=== PATIENT | male | born 1975 | race Caucasian/White ===

== ENCOUNTER 2019-12-16 13:31 | Emergency (ER) | payer OTHER, SELFPAY ==
[2019-12-16 13:54] VITALS: BP 136/75; PULSE 109; RESP 18; TEMP 36.6; O2SAT 99
--- NOTE | 2019-12-16 14:40 | ED.EAR ---
HPI - Ear Problem General Chief complaint: Ear Stated complaint: ear ache Time Seen by Provider: 12/16/19 14:40 Source: patient and RN notes reviewed Mode of arrival: ambulatory Limitations: no limitations History of Present Illness HPI Narrative: 44 year old male with complaints of severe left ear pain which awoke him at 0100 this morning, patient describes as constant ache rates his pain 8/10. Patient denies any known fevers, chills, or sweats, no sore throat or any cough. Patient admits to some clear nasal drainage but denies any sinus pain or headaches or acute rhinitis. Patient admits to tobacco abuse of 1ppd for the last 15 years. Lungs are clear to auscultation with no wheezing or any dyspnea voiced, SAO2 99% on room air. MD Complaint: ear pain and decreased hearing Location: left ear Duration: constant Severity: severe Relieving factors: other (some decrease with Ibuprofen) Exacerbating factors: palpation Discharge from ear: Reports no Associated symptoms ear: decreased hearing Treatment prior to arrival: other (ibuprofen) Related Data Home Medications Medication Instructions Recorded Confirmed albuterol sulfate 1 puff INHALATION QID PRN 12/16/19 12/16/19 alprazolam 0.5 mg PO HS PRN 12/16/19 12/16/19 escitalopram oxalate 20 mg PO DAILY 12/16/19 12/16/19 Allergies Allergy/AdvReac Type Severity Reaction Status Date / Time No Known Allergies Allergy Verified 12/16/19 14:14 Review of Systems Review of Systems: Narrative: CONSTITUTIONAL: Denies fever, chills, or sweats. EYES: Denies visual changes, redness, or discharge. ENT: Denies rhinorrhea, congestion, sore throat,left ear otalgia. CARDIOVASCULAR: Denies chest pain, palpitations, or edema. RESPIRATORY: Denies cough or dyspnea. GASTROINTESTINAL: Denies abdominal pain, nausea, vomiting, or diarrhea. GENITOURINARY: Denies dysuria or hematuria. SKIN: Denies rash or itching. MUSCULOSKELETAL: Denies back pain, joint pain, or myalgia. NEUROLOGIC: Denies headache, numbness, or weakness. PSYCHIATRIC: history anxiety or depression. All systems reviewed & are unremarkable except as noted in HPI and below PMFSH Past Medical History Medical History (Updated 12/21/19 @ 16:58 by Reina Leach NP) Anxiety Bronchitis CVA (cerebral vascular accident) Epilepsy Pneumonia Seizure Shoulder fracture, left Social History Social History (Updated 12/21/19 @ 16:56 by Reina Leach NP) Smoking packs per day: 1 Smoking cigarettes per day: 20.0 Years smoked: 15 Smoking pack-years: 15.00 Smoking status: Current every day smoker Tobacco type: cigarettes Living arrangements: with family Gender identity (if verbalized by the patient): Male Comments At time of signature, agree with nursing past medical, surgical, social and family history. There is no relevant family history pertinent to the presenting complaint Exam Narrative: Exam Narrative: GENERAL: Well-appearing, well-nourished, and in no acute distress. HEAD: Normocephalic, atraumatic. EYES: PERRLA and EOMI. ENT: Nares clear, clear rhinorrhea or epistaxis. Mucous membranes moist. Left TM bright red with dull light reflex painful to examine,right TM normal with good light reflex, throat pink no lesions or exudate no tonsil enlargement NECK: Supple.no lymphadenopathy CHEST: Clear to auscultation. No respiratory distress.SAO2 99% on room air HEART: Regular rate and rhythm. No murmur heard. Normal peripheral pulses. ABDOMEN: Soft, nontender, nondistended, normal active bowel sounds. EXTREMITIES: Normal range of motion. No edema. SKIN: Warm, dry, no rash. NEURO: No focal deficits. Alert and oriented x3. Course Vital Signs Vital signs: Vital Signs Temperature 36.6 C 12/16/19 13:54 Pulse Rate 109 H 12/16/19 13:54 Respiratory Rate 18 12/16/19 13:54 Blood Pressure 136/75 12/16/19 13:54 Pulse Oximetry 99 12/16/19 13:54 Temperature 36.6 C 12/16/19 13:54 Pulse Rate 109 H 0
== END 2019-12-16 14:56 | disposition home or self-care (01) ==
PROVIDERS: Emergency Provider Registered Nurse; PCP Internal Medicine Geriatric Medicine
DX: H65.02 Acute serous otitis media, left ear (principal); F17.210 Nicotine dependence, cigarettes, uncomplicated; F41.9 Anxiety disorder, unspecified; Z86.73 Personal history of transient ischemic attack (TIA), and cerebral infarction without residual deficits
CPT/HCPCS: 99213; G0463

== ENCOUNTER 2021-10-19 14:34 | Emergency (ER) | payer MEDICARE, MEDICAID, SELFPAY ==
[2021-10-19 14:42] VITALS: BP 158/99; PULSE 128; RESP 16; TEMP 36; O2SAT 96
--- NOTE | 2021-10-19 15:18 | ED.DIZZY ---
HPI - Dizziness General Chief Complaint: Dizziness Stated Complaint: Dizziness Time Seen by Provider: 10/19/21 15:10 Source: patient Mode of arrival: ambulatory Limitations: clinical condition History of Present Illness HPI Narrative: Dwight Funez is a 46 yo male with a PMH of HTN, anxiety and depression, stroke 5 years ago who comes to us care with complaints of lightheadedness. He is concerned that he is having another stroke however he is extremely anxious blood pressure is elevated he is very tachycardic when I asked him about taking his medication, he has taken his blood pressure medication but did not take any Ativan that was prescribed for anxiety. He is breathing fast and when asked about shortness fast breathing he states that he is anxious Related Data Home Medications Medication Instructions Recorded Confirmed albuterol sulfate 1 puff INHALATION QID PRN 12/16/19 10/19/21 alprazolam 0.5 mg PO HS PRN 12/16/19 10/19/21 escitalopram oxalate 20 mg PO DAILY 12/16/19 10/19/21 benazepril-hydrochlorothiazide 1 tablet PO DAILY 10/19/21 10/19/21 ergocalciferol (vitamin D2) 1,250 mcg PO DAILY 10/19/21 10/19/21 ferrous sulfate [FeroSul] 325 mg PO DAILY 10/19/21 10/19/21 quetiapine 200 mg PO DAILY 10/19/21 10/19/21 Allergies Allergy/AdvReac Type Severity Reaction Status Date / Time No Known Allergies Allergy Verified 10/19/21 14:57 Review of Systems Review of Systems: CONSTITUTIONAL: Denies fever, chills, sweats. EYES: Denies visual changes, redness, discharge. ENT: Denies rhinorrhea, congestion, sore throat, otalgia. CARDIOVASCULAR: Denies chest pain, palpitations, edema. RESPIRATORY: Denies dyspnea, wheezing, cough GASTROINTESTINAL: Denies abdominal pain, nausea, vomiting, diarrhea. GENITOURINARY: Denies dysuria, hematuria, abnormal discharge SKIN: Denies rash or itching. NEUROLOGIC: Denies numbness, or focal weakness. PSYCHIATRIC: Denies anxiety or depression. Patient complains of lightheadedness PMFSH Past Medical History Medical History Anxiety Bronchitis CVA (cerebral vascular accident) Epilepsy Pneumonia Seizure Shoulder fracture, left Social History Social History Smoking packs per day: 1 Smoking cigarettes per day: 20.0 Years smoked: 15 Smoking pack-years: 15.00 Smoking status: Current every day smoker Tobacco type: cigarettes Gender identity (if verbalized by the patient): Male Comments At time of signature, I agree with nursing past medical, surgical, social and family history. There is no relevant family history pertinent to the presenting complaint. Exam Narrative: GENERAL: This is a well-nourished, well-developed patient, is anxiousand in mild distress distress. HEAD: normocephalic, atraumatic. EYES: . PE RR L Sclera clear/white. Vision is grossly intact. EARS: External ears normal, auditory canals clear and without drainage, TMs normal without perforation. Hearing grossly intact. NOSE: External nose normal without nasal discharge, nares without redness, no rhinorrhea. THROAT: Mucous membranes moist, NECK: Neck supple, non-tender CARDIOVASCULAR: Tachycardic rate and rhythm without murmurs, gallops, or rubs. RESPIRATORY: Clear to auscultation. Rapid respiratory rate without distress, breath sounds equal bilaterally. No wheezes, rales, or rhonchi. GASTROINTESTINAL: Abdomen soft, non-tender, SKIN: warm, intact with no suspicious lesions or rash, good texture and turgor. NEURO: awake, alert, and oriented to person, place and time. There were no obvious focal neurologic abnormalities. Steady gait EXTREMITIES: Normal range of motion. Cranial nerves grossly intact able to do finger opposition and move all extremities with equal strength 5/5, no alteration in gait BACK: Nontender without deformity Course Course Emergency Course: Patient here for complaints of lightheade
[2021-10-19] MEDS: MECLIZINE HCL 25 MG TABLET PO (15:22)
[2021-10-19 15:31] LABS: Glucose Point of Care 151 mg/dl (65-105)
== END 2021-10-19 16:19 | disposition home or self-care (01) ==
PROVIDERS: Emergency Provider Nurse Practitioner
DX: H81.10 Benign paroxysmal vertigo, unspecified ear (principal); I10 Essential (primary) hypertension; F41.9 Anxiety disorder, unspecified; F32.A Depression, unspecified; Z86.73 Personal history of transient ischemic attack (TIA), and cerebral infarction without residual deficits
CPT/HCPCS: 82948; 99213; A9270; G0463

== ENCOUNTER 2024-04-01 16:38 | Emergency (ER) | payer MEDICARE, MEDICAID, SELFPAY ==
--- NOTE | ~2024-04-01 | CT_ITS ---
EXAMINATION: CT cervical spine wo con DATE: 04/01/2024 17:03 INDICATION: Head injury. Neck pain. TECHNIQUE: Computed tomography (CT) of the cervical spine was performed without intravenous contrast. Automated exposure control and iterative reconstruction technique were employed. The dose-length pro duct was 500.01 mGy-cm. COMPARISON: None FINDINGS: There is 14 degrees dextroscoliosis of cervical spine. Vertebral body heights are normal. T here is mildly decreased disc height at C4-C5. The following disc levels are specifically discussed: C2-C3: There is mild bilateral uncovertebral joint osteoarthritis. There is mild bilateral facet join t osteoarthritis. There is no neural foraminal stenosis. There is no central canal stenosis. C3-C4: There is moderate right and mild left uncovertebral joint osteoarthritis. There is no facet prakash int osteoarthritis. There is mild right neural foraminal stenosis. There is mild central canal stenos is. C4-C5: There is mild bilateral uncovertebral joint osteoarthritis. There is no facet joint osteoarthr itis. There is mild left neural foraminal stenosis. There is mild central canal stenosis. C5-C6: There is no uncovertebral joint osteoarthritis. There is no facet joint osteoarthritis. There is no neural foraminal stenosis. There is no central canal stenosis. C6-C7: There is no uncovertebral joint osteoarthritis. There is no facet joint osteoarthritis. There is no neural foraminal stenosis. There is no central canal stenosis. C7-T1: There is no uncovertebral joint osteoarthritis. There is mild bilateral facet joint osteoarthr itis. There is no neural foraminal stenosis. There is no central canal stenosis. IMPRESSION: 1. No fracture. 2. Mild cervical spondylosis. 3. Cervical dextroscoliosis. Reviewed, dictated and finalized at location E.
--- NOTE | ~2024-04-01 | CT_ITS ---
EXAMINATION: CT brain wo con DATE: 04/01/2024 17:03 INDICATION: Head injury. TECHNIQUE: Computed tomography (CT) of the head was performed without intravenous contrast. The mA wa s adjusted according to patient size. Iterative reconstruction technique was employed. The dose-lengt h product was 605.33 mGy-cm. COMPARISON: Head CT 04/25/2018, brain MRI 07/04/2018. FINDINGS: There is an old infarct in the right thalamus. There is no intracranial hemorrhage, acute i nfarction, or abnormal intracranial mass lesion. The ventricles are normal in size. The orbits are no rmal. There is mucosal thickening in the paranasal sinuses. The mastoid air cells are normal. IMPRESSION: 1. Old infarct in the right thalamus. Reviewed, dictated and finalized at location E.
[2024-04-01 16:45] VITALS: BP 114/87; PULSE 86; RESP 16; TEMP 36.4; O2SAT 97
--- NOTE | 2024-04-01 16:52 | ED.FALL ---
HPI - Fall General Chief Complaint: Fall Stated Complaint: glf, neck pain Time Seen by Provider: 04/01/24 16:40 History of Present Illness HPI Narrative: Pt slipped in shower and fell at local assisted living. Pt complains of slight SILVA and pain in back of neck. Pt requests oral pain medicine. Pt denies LOC or numbness or weakness in arms. Related Data Home Medications Medication Instructions Recorded Confirmed albuterol sulfate 90 mcg/actuation 1 puff inhalation QID PRN Dyspnea 12/16/19 10/19/21 aerosol inhaler alprazolam 0.5 mg tablet 0.5 mg PO HS PRN Anxiety 12/16/19 10/19/21 escitalopram oxalate 20 mg tablet 20 mg PO DAILY 12/16/19 10/19/21 benazepril 10 1 tablet PO DAILY 10/19/21 10/19/21 mg-hydrochlorothiazide 12.5 mg tablet ergocalciferol (vitamin D2) 1,250 1,250 mcg PO DAILY 10/19/21 10/19/21 mcg (50,000 unit) capsule ferrous sulfate 325 mg (65 mg 325 mg PO DAILY 10/19/21 10/19/21 iron) tablet (FeroSul) quetiapine 200 mg tablet 200 mg PO DAILY 10/19/21 10/19/21 Allergies Allergy/AdvReac Type Severity Reaction Status Date / Time No Known Allergies Allergy Verified 10/19/21 14:57 Review of Systems Review of Systems: All systems reviewed & are unremarkable except as noted in HPI and below PMFSH Past Medical History Medical History Anxiety Bronchitis CVA (cerebral vascular accident) Epilepsy Pneumonia Seizure Shoulder fracture, left Social History Social History Smoking packs per day: 1 Smoking cigarettes per day: 20.0 Years smoked: 15 Smoking pack-years: 15.00 Smoking status: Current every day smoker Tobacco type: cigarettes Living arrangements: with family Gender identity (if verbalized by the patient): Male Exam Const: General: no acute distress Nutritional Appearance: well nourished Orientation/consciousness: patient oriented x3 Limitations: no limitations Eyes: Conjunctivae: conjunctivae normal Pupils: Equal, round and reactive pupils present EOM: EOMs intact bilaterally Neck: Neck: normal visual inspection Resp: Effort & Inspection: normal respiratory effort Auscultation: clear to auscultation bilaterally Cardio: Rate: regular rate Rhythm: regular rhythm GI: Auscultation: normal bowel sounds Skin: General skin exam: normal color Rashes: no rashes Wounds: no wounds Neuro: General: patient oriented x3, moves all extremities, no focal motor deficits and CN's II-XI intact bilaterally Cranial nerves: Yes Nystagmus not present Speech: normal speech Extrem: General: normal to inspection and no clubbing, cyanosis or edema Psych: Mental Status: mental status grossly normal Affect: normal affect Attitude: cooperative Course Vital Signs Vital signs: Vital Signs Temperature 97.6 F 04/01/24 16:45 Pulse Rate 86 04/01/24 16:45 Respiratory Rate 16 04/01/24 16:45 Blood Pressure 114/87 04/01/24 16:45 Pulse Oximetry 97 04/01/24 16:45 Oxygen Delivery Room Air 04/01/24 16:45 Temperature 97.6 F 04/01/24 16:45 Pulse Rate 86 04/01/24 16:45 Respiratory Rate 16 04/01/24 16:45 Blood Pressure 114/87 04/01/24 16:45 Pulse Oximetry 97 04/01/24 16:45 Oxygen Delivery Room Air 04/01/24 16:45 MDM - Fall MDM Narrative Medical decision making narrative: Pt slipped in shower and fell. pt has mild SILVA and neck pain. will Ct brain and c spine and give pain meds. No neuro findings on exam. ct brain and c spine no acute fx or injury Discharge Plan Discharge Clinical Impression: Cervical muscle strain Patient Disposition: Home, Self-Care Condition: Stable Instructions: Antibiotic Form, Cervical Strain (DC) Prescriptions: New naproxen [Naprosyn] 500 mg tablet 500 mg PO BID Qty: 20 0RF cyclobenzaprine 10 mg tablet 10 mg PO TID Qty: 14 0RF No Action alprazolam 0.5 mg Tablet
[2024-04-01] MEDS: HYDROcodone/acetaminophen (*CRX) 5-325 MG TABLET 1 TAB PO (17:18)
== END 2024-04-01 19:21 ==
PROVIDERS: Emergency Provider Emergency Medicine; PCP Emergency Medicine
DX: S16.1XXA Strain of muscle, fascia and tendon at neck level, initial encounter (principal); G40.909 Epilepsy, unspecified, not intractable, without status epilepticus; F41.9 Anxiety disorder, unspecified; F17.210 Nicotine dependence, cigarettes, uncomplicated; Z86.73 Personal history of transient ischemic attack (TIA), and cerebral infarction without residual deficits; Z87.01 Personal history of pneumonia (recurrent); Z79.899 Other long term (current) drug therapy; W18.2XXA Fall in (into) shower or empty bathtub, initial encounter
CPT/HCPCS: 70450; 72125; 99284; A9270

== ENCOUNTER 2024-07-05 08:49 | Outpatient (CLI) | payer MEDICARE, MEDICAID, SELFPAY ==
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
== END 2024-07-05 08:50 | disposition home or self-care (01) ==
PROVIDERS: Visit Provider Psychiatry & Neurology Neurology
DX: R56.9 Unspecified convulsions (principal)
CPT/HCPCS: 95816

== ENCOUNTER 2024-07-18 07:43 | Outpatient (CLI) | payer MEDICARE, MEDICAID, SELFPAY ==
--- NOTE | ~2024-07-18 | MR_ITS ---
EXAMINATION: MR brain/brain stem wo con DATE: 07/18/2024 09:06 INDICATION: Epilepsy, unspecified, not intractable. TECHNIQUE: Magnetic resonance imaging (MRI) of the brain and brainstem was performed without intraven ous contrast. COMPARISON: Brain MRI 07/04/2018, 04/25/18, head CT 04/01/2024 FINDINGS: The hippocampi are normal and symmetric. There is a small old infarct in the left posterior ghassan. There is increased T2-weighted signal intensity in the medulla and left cerebellar white matte r. There is a small old infarct in right thalamus. There are scattered areas of nonspecific increased T2-weighted signal intensity in the cerebral white matter. There is no acute ischemic infarct or int racranial hemorrhage or abnormal mass lesion. The ventricles are normal in size. The orbits are charis l. The paranasal sinuses are clear. The mastoid air cells are normal. IMPRESSION: 1. Old infarcts involving the right thalamus and left posterior ghassan. 2. Mild nonspecific cerebral and cerebellar white matter disease and disease of the medulla, which joaquín byers represents chronic small vessel ischemic disease. Reviewed, dictated and finalized at location A. IMPRESSION: 1. Old infarcts involving the right thalamus and left posterior ghassan. 2. Mild nonspecific cerebral and cerebellar white matter disease and disease of the medulla, which likely represents chronic small vessel ischemic disease.
== END 2024-07-18 07:44 | disposition home or self-care (01) ==
PROVIDERS: Visit Provider Psychiatry & Neurology Neurology
DX: G40.909 Epilepsy, unspecified, not intractable, without status epilepticus (principal); Z87.828 Personal history of other (healed) physical injury and trauma; R90.82 White matter disease, unspecified
CPT/HCPCS: 70551

== ENCOUNTER 2024-10-01 11:06 | Emergency (ER) | payer MEDICARE, MEDICAID, SELFPAY ==
[2024-10-01] VITALS (15 sets, daily range): BP systolic 118–161; BP diastolic 74–100; PULSE 74–100; RESP 13–20; TEMP 36.3–36.6; O2SAT 97–100
--- NOTE | ~2024-10-01 | CT_ITS ---
EXAMINATION: CTA abd aorta runoff DATE: 10/01/2024 17:30 INDICATION: Peripheral arterial disease. TECHNIQUE: Computed tomographic angiography (CTA) of the abdominal, pelvis, and both lower extremitie s was performed with 150 mL Omnipaque-350 intravenous contrast. Automated exposure control and iterat sophie reconstruction technique were employed. The dose-length product was 1999.60 mGy-cm. Maximum inten sity projection 3D-reconstructions of the arteries were created by the technologist on a separate wor kstation. COMPARISON: CT abdomen and pelvis 08/05/2018 FINDINGS: ABDOMINAL AORTA AND ITS BRANCHES: There is no significant stenosis of abdominal aorta, celiac axis, superior mesenteric artery, the soco al arteries, or inferior mesenteric artery. PELVIC VASCULATURE: There is no significant stenosis of the common iliac arteries, internal iliac arteries, or external i liac arteries. RIGHT LOWER EXTREMITY VASCULATURE: There is moderate stenosis of right common femoral artery. There is no significant stenosis of the pr ofunda femoral artery or superficial femoral artery. There is severe stenosis of the above-knee popli teal artery. There is no significant stenosis of the tibioperoneal trunk, or anterior or posterior ti bial arteries. Peroneal artery is small. LEFT LOWER EXTREMITY VASCULATURE: There is no significant stenosis of common femoral artery, profunda femoral artery, or superficial fe moral artery. There is severe stenosis of the above-knee popliteal artery. There is no significant st enosis of the tibioperoneal trunk, peroneal artery, or anterior or posterior tibial arteries. ADDITIONAL FINDINGS: The visualized portions of the lung bases are clear without pneumonia or pleural effusion. The heart size is normal. No pericardial effusion. The liver, gallbladder, spleen, pancreas, and adrenal glands are normal. There is cortical thinning of the kidneys. There is a 15 mm cyst in right kidney. There are no dilated loops of bowel. The appendix is normal. There are no pathologically enlarged lymph nod es. There is no free intraperitoneal fluid. There is an 8 mm radiopaque foreign body in the left foot . IMPRESSION: 1. Moderate stenosis of right common femoral artery. 2. Severe stenosis of right above-knee popliteal artery. 3. 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 Reviewed, dictated and finalized at location A. WASHER
--- NOTE | ~2024-10-01 | XR_ITS ---
EXAMINATION: XR tibia fibula LT 2V DATE: 10/01/2024 14:52 INDICATION: Left lower leg wounds. TECHNIQUE: 2 views of the left tibia and fibula on 4 radiographs were obtained. COMPARISON: Left knee radiograph 04/21/2014 FINDINGS: Alignment is normal. No fracture. There is mild left knee osteoarthritis. No knee joint eff usion. IMPRESSION: 1. Mild left knee osteoarthritis. Reviewed, dictated and finalized at location A. HARDENER
--- NOTE | ~2024-10-01 | US_ITS ---
ULTRASOUND ANKLE BRACHIAL INDEX Ordering provider: Nettie Chaudhry MD History: . requested by facility . Comparison: None. FINDINGS: Right brachial systolic blood pressure: 150 mmHg Left brachial systolic blood pressure: 1:15 9 mmHg Right ankle systolic blood pressure: 114 mmHg Left ankle systolic blood pressure: Not visualized. Right ankle/arm index (LUZ): 0.76 Left ankle/arm index (LUZ): NA Note regarding LUZ: --Normal= 1.0 or slightly greater. --Claudication (moderate stenosis or occlusive state)= 0.6 to 0.9. --Rest pain (severe occlusive states)= 0.5 or less. IMPRESSION: Moderate stenosis in the right side. Highly suggestive Severe stenosis on the left side. Reviewed, dictated and finalized at location A. OUND SPECIALIST
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
[2024-10-01] MEDS: HYDROcodone/acetaminophen (*CRX) 5-325 MG TABLET 1 TAB PO (14:54)
[2024-10-01 15:17] LABS: Basophils Percent Auto 0.5 % (0.2-1.2); Eosinophils Absolute Auto 0.9 K/mm3 (0-0.3); Eosinophils Percent Auto 11.1 % (0-4.4); Hematocrit 34.7 % (42.0-52.0); Hemoglobin 11.2 g/dL (14.0-18.0); Immature Granulocyte Absolute 0.07 K/mm3 (0.00-0.031); Immature Granulocyte Percent A 0.9 % (0-0.5); Lymphocytes Absolute Auto 1.69 K/mm3 (0.9-3.2); Lymphocytes Percent Auto 22.1 % (18.3-44.2); Mean Corpuscular HGB Conc 32.3 g/dl (32-36); Mean Corpuscular Hemoglobin 28.1 pg (26-34); Mean Platelet Volume 9.6 fl (7.4-10.4); Monocytes Absolute Auto 0.8 K/mm3 (0.1-0.6); Neutrophils Absolute Auto 4.2 K/mm3 (1.3-6.7); Neutrophils Percent Auto 54.4 % (45.5-73.1); Platelet Count Result 227 k/mm3 (150-375); Red Blood Count 3.99 M/mm3 (4.6-6.20); Red Cell Distribution Width 16.7 % (11.5-14.5); White Blood Count 7.6 K/mm3 (4.5-10.0)
[2024-10-01 15:26] LABS: INR 1.2; Prothrombin Time 15.4 Seconds (11.1-14.7)
[2024-10-01 15:27] LABS: Partial Thromboplastin Time 37.5 Seconds (22.3-36.8)
[2024-10-01 15:31] LABS: Alanine Aminotransferase 13 U/L (6-50); Albumin Level 3.8 g/dL (3.5-5.1); Alkaline Phosphatase 72 U/L (38-126); Anion Gap 6 mmol/L (4-12); Aspartate Amino Transferase 27 U/L (17-59); Bilirubin,Total 0.6 mg/dL (0.2-1.3); Blood Urea Nitrogen 36 mg/dL (9-20); CRP 1.8 mg/dL (<1.0); Calcium 8.6 mg/dL (8.4-10.2); Carbon Dioxide 26 mmol/L (22-30); Chloride 110 mmol/L (98-107); Estimated CRCL calculation 34 ml/min; Estimated Glomerular Filt Rate 31; Glucose 99 mg/dL (65-110); Potassium 5.4 mmol/L (3.4-5.0); Sodium 142 mmol/L (137-145)
--- NOTE | 2024-10-01 16:16 | ECG_ITS ---
Test Date: 2024-10-01 16:50:50 Measurements Intervals [place] Rate: 72 P: -19 [place]: 133 QRS: 143 QRSD: 106 T: 150 QT: 418 QTc: 460 Interpretive Statements SINUS RHYTHM POSSIBLE RIGHT VENTRICULAR HYPERTROPHY [SOME/ALL OF: PROMINENT R IN V1, LATE TRANSITION, RAD, PHAM, SSS] No previous ECG available for comparison Electronically Signed On 10-02-2024 15:03:37 PRESS CLEANER by Maryanne Heck M.D.
[2024-10-01 16:44] LABS: Lactic Acid Reflex 0.9 mmol/L (0.7-2.0)
[2024-10-01] MEDS: CALCIUM GLUCONATE 1,000 MG/10 ML VIAL 1000 MG IV PUSH (17:05)
[2024-10-01] MEDS: SODIUM CHLORIDE 0.9% IV 1,000 ML 999 ML IV CONT ×2 (17:05→21:02)
[2024-10-01] MEDS: ALBUTEROL SULFATE NEB 2.5 MG/3 ML INH 10 MG INHALATION (18:25)
[2024-10-01 18:41] LABS: Erythrocyte Sedimentation Rate 104 mm/hr (0-20)
[2024-10-01] MEDS: SODIUM POLYSTYRENE SULFONONATE 15 GM/60 ML BTL 30 GM PO (18:48)
[2024-10-01] MEDS: DEXTROSE 50% 25 GM/50 ML SYRINGE IV PUSH (18:48)
[2024-10-01] MEDS: INSULIN HUMAN REGULAR (*BKC) 100 UNITS/ML 10 UNITS IV PUSH (18:49)
[2024-10-01] MEDS: SULFAMETHOXAZOLE/TRIMETHOPRIM 800/160 MG DS TABLET 1 TAB PO (20:24)
--- NOTE | 2024-10-02 00:23 | PC.NURSE ---
pt depend changed x 2 - liquid brown stool
--- NOTE | 2024-10-02 00:57 | PC.NURSE ---
lora delvalle at [facility] - room 316 given report.
[2024-10-02 04:07] VITALS: BP 137/76; PULSE 84; RESP 16; O2SAT 98
[2024-10-02] MEDS: hydroCHLOROthiazide 12.5 MG CAPSULE PO (04:35)
[2024-10-02] MEDS: lisinopriL 10 MG TABLET PO (04:35)
--- NOTE | 2024-10-02 04:37 | PC.NURSE ---
pt medicated with a dose of home medication. ems will now take him. ok per edp antonio to go once medicated.
== END 2024-10-02 04:45 ==
PROVIDERS: Emergency Medicine; Emergency Provider Student in an Organized Health Care Education/Training Program; PCP Internal Medicine Geriatric Medicine
DX: L03.116 Cellulitis of left lower limb (principal); S81.802A Unspecified open wound, left lower leg, initial encounter; S81.801A Unspecified open wound, right lower leg, initial encounter; I70.203 Unspecified atherosclerosis of native arteries of extremities, bilateral legs; N28.9 Disorder of kidney and ureter, unspecified; D64.9 Anemia, unspecified; E87.5 Hyperkalemia; R70.0 Elevated erythrocyte sedimentation rate; R79.82 Elevated C-reactive protein (CRP); M17.12 Unilateral primary osteoarthritis, left knee; M79.605 Pain in left leg; F03.90 Unspecified dementia, unspecified severity, without behavioral disturbance, psychotic disturbance, mood disturbance, and anxiety; G40.909 Epilepsy, unspecified, not intractable, without status epilepticus; E53.9 Vitamin B deficiency, unspecified; N40.0 Benign prostatic hyperplasia without lower urinary tract symptoms; E55.9 Vitamin D deficiency, unspecified; F41.9 Anxiety disorder, unspecified; F31.9 Bipolar disorder, unspecified; F17.210 Nicotine dependence, cigarettes, uncomplicated; Z66 Do not resuscitate; Z87.01 Personal history of pneumonia (recurrent); Z86.73 Personal history of transient ischemic attack (TIA), and cerebral infarction without residual deficits; Z79.899 Other long term (current) drug therapy; R94.31 Abnormal electrocardiogram [ECG] [EKG]; V28.99XA Unspecified rider of other motorcycle injured in noncollision transport accident in traffic accident, initial encounter
CPT/HCPCS: 36415; 73590; 75635; 80053; 83605; 85025; 85610; 85652; 85730; 86140; 87040; 87070; 87075; 87077; 87147; 87181; 87186; 87205; 93005; 93922; 94640; 96361; 96374; 96375; 99284; A9270; J0612; J1815; J7030; Q9967

== ENCOUNTER 2024-11-30 14:15 | Inpatient (IN) | payer MEDICARE, MEDICAID, SELFPAY ==
[2024-11-30] VITALS (7 sets, daily range): BP systolic 124–154; BP diastolic 94–99; PULSE 77–94; RESP 11–818; TEMP 36.4–36.7; O2SAT 99–100
--- NOTE | ~2024-11-30 | CT_ITS ---
EXAMINATION: CTA [facility] DATE: 11/30/2024 23:02 INDICATION: Arterial occlusive disease. TECHNIQUE: Computed tomographic angiography (CTA) of the left lower extremity was performed with 100 mL Omnipaque-350 intravenous contrast. Automated exposure control and iterative reconstruction techni que were employed. The dose-length product was 364.31 mGy-cm. Maximum intensity projection 3D-reconst ructions of the arteries were created by the technologist on a separate workstation. COMPARISON: CTA 10/01/2024 FINDINGS: There is no significant stenosis of the included portion of left superficial femoral artery. There is severe stenosis of the above-knee popliteal artery. There is no significant stenosis of the tibioper torres trunk, anterior tibial artery, posterior tibial artery, or the peroneal artery. Again seen is a n 8 mm radiopaque foreign body in the musculature of the foot. IMPRESSION: 1. 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 Reviewed, dictated and finalized at location A. ENT ANALYST
--- NOTE | ~2024-11-30 | XR_ITS ---
HISTORY: fall onto left knee COMPARISON: None TECHNIQUE: 2 views of the left knee were performed FINDINGS: No acute or subacute fracture, erosion, lytic or sclerotic lesion. Trace medial tibiofemoral joint space narrowing is identified. No suprapatellar joint effusion is identified. The infrapatellar joint space is clear. IMPRESSION: Degenerative disease, without acute fracture or dislocation. Reviewed, dictated and finalized at location A. IAC CATH TECHNICIAN
--- NOTE | ~2024-11-30 | XR_ITS ---
EXAMINATION: XR tibia fibula LT 2V DATE: 11/30/2024 16:48 INDICATION: Left lower leg wound. TECHNIQUE: 2 views of left tibia and fibula on 4 radiographs were obtained. COMPARISON: Left tibia and fibula radiographs 10/01/2024 FINDINGS: Alignment is normal. No fracture. There is mild left knee osteoarthritis. No knee joint eff usion. IMPRESSION: 1. No evidence of osteomyelitis. Reviewed, dictated and finalized at location A. CENTER CONSULTANT
--- OUTSIDE RECORDS SUMMARY | 2024-11-30 14:19 | XMS_ITS | Continuity of Care Document ---
Author Organization [facility] Address [address] [place] [address] Phone Care Team Providers Care Strategic Development Manager Name Role Phone Christina Resendiz Unavailable Unavailable Advance Directives Directive Yes / No Effective Date File Name No Information Encounters Encounter Description Practice Location Reason(s) For Visit Diagnoses Date Provider Providers Copied on Encounter [facility], [address], [place], [place], [id number], [place] tel:[phone] [facility] No Information 3[facility] Astrid Vasquez. [address] [facility] , [address], [place], [address], [place]. tel:[phone] Family History Family Member Type Diagnosis Age At Onset No Information Payers Payer name Insurance type Covered libertarian ID Authoriza tiskylar(s) [employer] SOI CI [id number] Social History Type Description Quantity Date Captured Comments Sex Male Smoking Status No Information Chief Complaint And Reason For Visit No Information Reason For Referral Reason For Referral No Information History Of Present Illness Encounter Date Complaint History Of Prese nt Illness No Information Functional Status Date Functional Assessmen t No Information Instructions Date Instruction Additional Infor mation No Information Assessments Type Assessment Date No Information Patient Care Teams Name Effective Dates (start - stop) Status Members No Information
--- OUTSIDE RECORDS SUMMARY | 2024-11-30 14:19 | XMS_ITS | Clinical Summary ---
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 advanced to the the terminal ileum, with identification of theappendiceal orifice and IC valve. The colonoscopy was performed without difficulty. The patient tolerated the procedure well. The quality of the bowelpreparation was fair and inadequate. The bowel preparation used was SUPREP via split dose instruction. Findings: The perianal and digital rectal examinations were normal. A 6 mm polyp was found in the cecum. The polyp was sessile. The polyp was removed with a jumbo cold forceps. Resection and retrieval were complete. Verification of patient identification for the specimen was done by the nurse. Estimated blood loss was minimal. A scattered area of mildly erythematous mucosa was found in thesigmoid colon. Biopsies were taken with a cold forceps for histology. Verification of patient identification for the specimen was done bythe nurse. Estimated blood loss was minimal. The terminal ileum appeared normal. Impression: - Preparation of the colon was fair. - Preparation of the colon was inadequate. - One 6 mm polyp in the cecum, removed with a jumbo cold forceps. Resected and retrieved. - Erythematous mucosa in the sigmoid colon.Biopsied. - The examined portion of the ileum was normal. Recommendation: - Discharge patient to home (ambulatory). - Resume previous diet. - Continue present medications. - Await pathology results. - Repeat colonoscopy for surveillance based on pathology results in 2 yrs. Procedure Code(s): --- Professional --- 65400, Colonoscopy, flexible; with biopsy, singleor multiple Diagnosis Code(s): --- Professional --- K63.5, Polyp of colon K63.89, Other specified diseases of intestine D50.9, Iron deficiency anemia, unspecified CPT copyright 2019 [employer]. All rights reserved. The codes documented in this report are preliminary and upon learning disabilities specialist reviewmay be revised to meet current compliance requirements. Electronically signed by Desmond Christensen MD Amparo Logan M.D. 03/10/2021 10:12:39 AM This report has been electronically signed by the physician. Number of Addenda: 0 Note Initiated On: 03/10/2021 9:39 AM Amparo Logan MD ENDOSCOPY PROCEDURES Final Re sult from Last 3 Months or Most Recently Relevant to Health Maintenance Insurance [facility] HEALTH MEDICARE MEDICARE SOLUTIONS [facility] MEDICARE Advance Directives For more information, please contact: [phone] Documents on File Type Date Recorded Patient Surveillance Operator Expl anation ADVANCE DIRECTIVE 03/16/2023 10:27 AM ID O F HEALTHCARE SURROGATE ADVANCE DIRECTIVE 02/21/2023 9:50 AM DNR * Full Code (Latest Code Status on File) Date Activated Date Inactivated Comments 04/11/2023 7:30 PM 04/25/2023 3:51 PM * LIMITED - No CPR Date Activated Date Inactivated Comments 03/14/2023 8:31 AM 03/15/2023 7:32 PM Question Answer Comments Provide aggressive medical m anagement before a full cardiopulmonary arrest occurs. Use antibiotics, IV Fluids, and medical treatment unless specifically selected below: No intubationNo cardioversion * Full Code Date Activated Date Inactivated Comments 01/31/2023 5:11 PM 03/14/2023 8:31 AM * Full Code Date Activated Date Inactivated Comments 08/24/2022 3:47 AM 08/24/2022 5:16 PM * Full Code Date Activated Date Inactivated Comments 11/28/2021 10:23 PM 11/30/2021 9:40 PM Care Teams Tax Record Clerk Relationship Specialty [place] [id number] [address] [facility] [place] [address] PCP - General 07/11/20 [place] [address] [address] [facility] [place] [address] Consulting Physician Cardiology 11/30/21
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
--- NOTE | 2024-11-30 16:20 | ED.WOUNDLAC ---
HPI - Wound/Laceration General Chief Complaint: Wound/Laceration <Alivia Barrera PA-C - Last Filed: 12/01/24 15:23> Stated Complaint: wound LLE <Alivia Barrera PA-C - Last Filed: 12/01/24 15:23> Time Seen by Provider: 11/30/24 16:20 <Alivia Barrera PA-C - Last Filed: 12/01/24 15:23> Focused HPI: This is a 49 year old male that presents to the ER for a wound to the left lower leg. Ongoing over the last 2 weeks. He was sent from the facility as the wound is worsening. Reports redness, swelling, abnormal drainage. GENERAL: Well-appearing, well-nourished, and in no acute distress. HEAD: Normocephalic, atraumatic. CHEST: Clear to auscultation. ?No respiratory distress. HEART: Regular rate and rhythm.? NEURO: ?Alert and oriented x3. Patient screened in triage and initial orders placed.? ?Additional care and disposition to be based upon?diagnostic testing and treatment. <Alivia Barrera PA-C - Last Filed: 12/01/24 15:23> History of Present Illness HPI narrative: 41-year-old male with history of cerebrovascular disease, seizure disorder, cognitive impairment presents to the emergency department via EMS from [facility] for lower extremity wounds. Patient has chronic wounds to his left lower extremity but was sent here due to worsening wounds. He is unable to provide much history secondary to cognitive impairment. I did discuss patient's case with [facility] staff he states they noticed that there was increased redness and green drainage from the wounds. States he is following with vascular surgery at [facility], per chart vascular surgeon is Dr. Laura. Per halfway staff the patient was supposedly going have an upcoming procedure to increase blood flow to his lower extremity due to known severe stenosis. No known fever. Patient was seen in the ED on 10/01/2024 for the same presentation. He was started on Keflex and Bactrim. ABIs and CTA of the extremity obtained at that time which showed severe stenosis. <CANDIDA Severino Last Filed: 12/01/24 01:14> Related Data Home Medications: Home Medications ?Medication ?Instructions ?Recorded ?Confirmed ?Last Taken ?Type albuterol sulfate 90 mcg/actuation 1 puff inhalation QID PRN Dyspnea 12/16/19 12/01/24 Unknown History aerosol inhaler alprazolam 0.5 mg tablet 0.25 mg PO BID PRN Anxiety 12/16/19 12/01/24 Unknown History ascorbic acid (vitamin C) 500 mg 500 mg PO DAILY 12/01/24 12/01/24 Unknown History tablet (Vitamin C) aspirin 81 mg chewable tablet 1 tablet PO DAILY 12/01/24 12/01/24 Unknown History atorvastatin 40 mg tablet (Lipitor) 40 mg PO HS 12/01/24 12/01/24 Unknown History buspirone 10 mg tablet 10 mg PO TID 12/01/24 12/01/24 Unknown History cholecalciferol (vitamin D3) 50 50 mcg PO DAILY 12/01/24 12/01/24 Unknown History mcg (2,000 unit) capsule cyanocobalamin (vitamin B-12) 500 500 mcg PO DAILY 12/01/24 12/01/24 Unknown History mcg tablet (B-12 DOTS) divalproex 500 mg tablet,delayed 500 mg PO DAILY 12/01/24 12/01/24 Unknown History release (Depakote) famotidine 20 mg tablet 20 mg PO DAILY 12/01/24 12/01/24 Unknown History fluoxetine 20 mg capsule 60 mg PO DAILY 12/01/24 12/01/24 Unknown History gabapentin 100 mg capsule 100 mg PO TID 12/01/24 12/01/24 Unknown History levetiracetam 1,000 mg tablet 1,000 mg PO BID 12/01/24 12/01/24 Unknown History (Keppra) lisinopril 5 mg tablet 5 mg PO DAILY 12/01/24 12/01/24 Unknown History lorazepam 0.5 mg tablet 0.5 mg sublingual DAILY PRN anxiety 12/01/24 12/01/24 Unknown History metoprolol tartrate 50 mg tablet 50 mg PO BID 12/01/24 12/01/24 Unknown History (Lopressor) quetiapine 100 mg tablet 125 mg PO TID 12/01/24 12/01/24 Unknown History sennosides 8.6 mg-docusate sodium 1 tab-cap PO DAILY 12/01/24 12/01/24 Unknown History 50 mg tablet (2-in-1 Laxative) tamsulosin 0.4 mg capsule (Flomax) 0.4 mg PO HS 12/01/24 12/01/24 Unknown History tramadol 50 mg tablet 50 mg PO BID PRN pain 12/01/24 12/01/24 Unknown History trazodone 50 mg tablet 50 mg PO HS 12/01/24 12/01/24 Unknown History venlafaxine 150 mg 150 mg PO DAILY 12/01/24 12/01/24 Unknown History capsule,extended release 24 hr <Alivia Barrera PA-C - Last Filed: 12/01/24 15:23> Allergies/Adverse Reactions: Allergies Allergy/AdvReac Type Severity Reaction Status Date / Time ziprasidone (From [facility]) Allergy Hives Verified 10/01/24 21:04 <Alivia Barrera PA-C - Last Filed: 12/01/24 15:23> Review of Systems Review of Systems: All systems reviewed & are unremarkable except as noted in HPI and below <Nina Cervantes PA-C - Last Filed: 12/01/24 01:14> [facility] Past Medical History Medical History: Medical History Anemia Anxiety Ataxia Behavior problems Bipolar disorder BPH (benign prostatic hyperplasia) Brain injury Bronchitis Cerebrovascular disease Cognitive impairment CVA (cerebral vascular accident) Delirium Dementia Epilepsy History of TIA (transient ischemic attack) and stroke HTN (hypertension) Major depressive disorder Panic disorder Pneumonia Seizure disorder Shoulder fracture, left Urine retention Vitamin B deficiency Vitamin D deficiency <Alivia Barrera PA-C - Last Filed: 12/01/24 15:23> Social History Social History: Social History (Updated 10/01/24 @ 19:16 by Nettie Chaudhry MD) Social History: POLST notes Do Not Attempt Resuscitation (DNR), comfort-focused treatment Smoking packs per day: 1 Smoking cigarettes per day: 20.0 Years smoked: 15 Smoking pack-years: 15.00 Smoking status: Current every day smoker Tobacco type: cigarettes Alcohol intake: never Substance use: never Substance use type: does not use Do You Feel Safe in your Home?: Yes Lack of Transportation: No Lack of Food: Never True Current Housing: I Have Housing Concerned About Future Housing: No Difficulty Paying Gas/Electric Bills: No Difficulty Paying for Meds: No Currently Unemployed: No Education: Don't Know Difficulty w/ Childcare or Family Care: No Living arrangements: halfway Additional living arrangements comments: [facility] Gender identity (if verbalized by the patient): Male Spiritual care concerns: No <Alivia Barrera PA-C - Last Filed: 12/01/24 15:23> Exam Narrative: GENERAL: Well-appearing, well-nourished, and in no acute distress. HEAD: Normocephalic, atraumatic. EYES: EOMI. ENT: Nares clear, no rhinorrhea or epistaxis. Mucous membranes moist. NECK: Supple. CHEST: Clear to auscultation. No respiratory distress. HEART: Regular rate and rhythm. No murmur heard. Normal peripheral pulses. ABDOMEN: Soft, nontender, nondistended, normal active bowel sounds. EXTREMITIES: Several stage 1-3 ulcerations to the LLE with surrounding erythema, warmth and tenderness. Wounds with malodorous green drainage. No crepitus or fluctuance. Unable to palpate DP pulse, however extremity is not particularly cold. Cap refill 2 SKIN: Warm, dry, no rash. NEURO: No focal deficits. Alert and oriented x3 <Nina Cervantes PA-C - Last Filed: 12/01/24 01:14> Course CHIEF PORT DIRECTOR/PA Physician Supervision This visit was performed by both a physician and an APC. I performed all aspects of the MDM as documented. <Jim Alvarez MD - Last Filed: 12/01/24 06:47> Vital Signs Vital signs: Vital Signs Temperature 97.6 F 11/30/24 15:14 Pulse Rate 89 11/30/24 15:14 Respiratory Rate 16 11/30/24 15:14 Blood Pressure 124/94 H 11/30/24 15:14 Pulse Oximetry 100 11/30/24 15:14 Oxygen Delivery Room Air 11/30/24 15:14 Temperature 98.6 F 12/01/24 05:23 Pulse Rate 80 12/01/24 14:10 Respiratory Rate 18 12/01/24 05:23 Blood Pressure 126/83 12/01/24 05:23 Pulse Oximetry 96 12/01/24 12:55 Oxygen Delivery Room Air 12/01/24 12:55 <Alivia Barrera PA-C - Last Filed: 12/01/24 15:23> Vital Signs Temperature 97.6 F 11/30/24 15:14 Pulse Rate 89 11/30/24 15:14 Respiratory Rate 16 11/30/24 15:14 Blood Pressure 124/94 H 11/30/24 15:14 Pulse Oximetry 100 11/30/24 15:14 Oxygen Delivery Room Air 11/30/24 15:14 Temperature 98.6 F 12/01/24 05:23 Pulse Rate 80 12/01/24 14:10 Respiratory Rate 18 12/01/24 05:23 Blood Pressure 126/83 12/01/24 05:23 Pulse Oximetry 96 12/01/24 12:55 Oxygen Delivery Room Air 12/01/24 12:55 <Nina Cervantes PA-C - Last Filed: 12/01/24 01:14> Vital Signs Temperature 97.6 F 11/30/24 15:14 Pulse Rate 89 11/30/24 15:14 Respiratory Rate 16 11/30/24 15:14 Blood Pressure 124/94 H 11/30/24 15:14 Pulse Oximetry 100 11/30/24 15:14 Oxygen Delivery Room Air 11/30/24 15:14 Temperature 98.6 F 12/01/24 05:23 Pulse Rate 80 12/01/24 14:10 Respiratory Rate 18 12/01/24 05:23 Blood Pressure 126/83 12/01/24 05:23 Pulse Oximetry 96 12/01/24 12:55 Oxygen Delivery Room Air 12/01/24 12:55 <Jim Alvarez MD - Last Filed: 12/01/24 06:47> MDM - Wound/Laceration MDM Narrative Medical decision making narrative: 49-year-old male with history of cognitive impairment, cerebrovascular disease or disorder presents to the ED for worsening left lower extremity leg wounds. Patient has known severe stenosis to the left lower extremity and follows with Dr. Laura vascular surgery. Per halfway report, patient's wounds have appear more infected which is why he was transferred to the ED. vitals are stable. Exam is significant for several stage 1-3 ulcers to the left lower extremity. No palpable DP pulses but DP pulse is able to be dopplered at bedside. Given history of severe stenosis, CTA lower extremity obtained which redemonstrates severe stenosis of left above knee popliteal artery. Lab work shows leukocytosis of 11.4, chronic anemia with hemoglobin of 10.9. Chemistries with a creatinine of 1.86, which recent creatinine in September of 2024 was 2.3. Bicarb 17, anion gap 13, potassium is 5.4, all likely secondary to chronic underlying CKD vs MARIANGEL. fluids provided. ESR within normal limits. Lactic normal at 0.6. Plan to admit to hospitalist for IV antibiotics. It attempt to transfer the patient to [facility] for continuity of care with his vascular surgeon, however unfortunately [facility] do not have vascular available until 12/03/2024 and [facility] are only accepting critical patients at this time. Discussed with our hospitalist, Dr. Mcguire, who agrees to admission. Pt started on vancomycin and Zosyn, renally dosed per pharmacy. <Alivia Barrera PA-C - Last Filed: 12/01/24 15:23> 49-year-old male with history of cognitive impairment, cerebrovascular disease or disorder presents to the ED for worsening left lower extremity leg wounds. Patient has known severe stenosis to the left lower extremity and follows with Dr. Laura vascular surgery. Per halfway report, patient's wounds have appear more infected which is why he was transferred to the ED. vitals are stable. Exam is significant for several stage 1-3 ulcers to the left lower extremity. No palpable DP pulses but DP pulse is able to be dopplered at bedside. Given history of severe stenosis, CTA lower extremity obtained which redemonstrates severe stenosis of left above knee popliteal artery. Lab work shows leukocytosis of 11.4, chronic anemia with hemoglobin of 10.9. Chemistries with a creatinine of 1.86, which recent creatinine in September of 2024 was 2.3. Bicarb 17, anion gap 13, potassium is 5.4, all likely secondary to chronic underlying CKD vs MARIANGEL. fluids provided. ESR within normal limits. Lactic normal at 0.6. Plan to admit to hospitalist for IV antibiotics. It attempt to transfer the patient to [facility] for continuity of care with his vascular surgeon, however unfortunately [facility] do not have vascular available until 12/03/2024 and [facility] are only accepting critical patients at this time. Discussed with our hospitalist, Dr. Mcguire, who agrees to admission. Pt started on vancomycin and Zosyn, renally dosed per pharmacy. <Nina Cervantes PA-C - Last Filed: 12/01/24 01:14> Lab Data Result diagrams: 12/01/24 09:06 12/01/24 13:58 <Alivia Barrera PA-C - Last Filed: 12/01/24 15:23> Labs: Lab Results 11/30/24 11/30/24 Range/Units 20:21 22:38 WBC 11.4 H (4.5-10.0) K/mm3 RBC 3.89 L (4.6-6.20) M/mm3 Hgb 10.9 L (14.0-18.0) g/dL Hct 33.8 L (42.0-52.0) % MCV 86.9 (80-100) fl MCH 28.0 (26-34) pg MCHC 32.2 (32-36) g/dl RDW 16.3 H (11.5-14.5) % Plt Count 261 (150-375) k/mm3 MPV 10.4 (7.4-10.4) fl Immature Gran % (Auto) 1.0 H (0-0.5) % Neut % (Auto) 62.8 (45.5-73.1) % Lymph % (Auto) 18.5 (18.3-44.2) % Owen % (Auto) 6.5 (2.6-8.5) % Eos % (Auto) 10.4 H (0-4.4) % Baso % (Auto) 0.8 (0.2-1.2) % Lymph # (Auto) 2.11 (0.9-3.2) K/mm3 Owen # (Auto) 0.7 H (0.1-0.6) K/mm3 Eos # (Auto) 1.2 H (0-0.3) K/mm3 Baso # (Auto) 0.1 (0.0-0.1) K/mm3 Abs Immat Gran (auto) 0.12 H (0.00-0.031) K/mm3 Absolute Neuts (auto) 7.2 H (1.3-6.7) K/mm3 Absolute Nucleated RBC 0.000 (0.0-0.012) K/mm3 Nucleated RBC % 0.0 (0.0-0.2) % ESR 6 (0-20) mm/hr Sodium 139 (137-145) mmol/L Potassium 5.4 H (3.4-5.0) mmol/L Chloride 109 H (98-107) mmol/L Carbon Dioxide 17 L (22-30) mmol/L Anion Gap 13 H (4-12) mmol/L BUN 37 H (9-20) mg/dL Creatinine 1.86 H (0.7-1.3) mg/dL Estim Creat Clear Calc Not Reportable Estimated GFR 39 L (59 - ) Glucose 84 (65-110) mg/dL Lactic Acid 0.6 L (0.7-2.0) mmol/L Calcium 9.1 (8.4-10.2) mg/dL Total Bilirubin 0.6 (0.2-1.3) mg/dL AST 25 (17-59) U/L ALT 19 (6-50) U/L Alkaline Phosphatase 100 (38-126) U/L C-Reactive Protein 1.2 H (<1.0) mg/dL Total Protein 8.0 (6.3-8.2) g/dL Albumin 3.8 (3.5-5.1) g/dL <Alivia Barrera PA-C - Last Filed: 12/01/24 15:23> Lab Results 11/30/24 11/30/24 Range/Units 20:21 22:38 WBC 11.4 H (4.5-10.0) K/mm3 RBC 3.89 L (4.6-6.20) M/mm3 Hgb 10.9 L (14.0-18.0) g/dL Hct 33.8 L (42.0-52.0) % MCV 86.9 (80-100) fl MCH 28.0 (26-34) pg MCHC 32.2 (32-36) g/dl RDW 16.3 H (11.5-14.5) % Plt Count 261 (150-375) k/mm3 MPV 10.4 (7.4-10.4) fl Immature Gran % (Auto) 1.0 H (0-0.5) % Neut % (Auto) 62.8 (45.5-73.1) % Lymph % (Auto) 18.5 (18.3-44.2) % Owen % (Auto) 6.5 (2.6-8.5) % Eos % (Auto) 10.4 H (0-4.4) % Baso % (Auto) 0.8 (0.2-1.2) % Lymph # (Auto) 2.11 (0.9-3.2) K/mm3 Owen # (Auto) 0.7 H (0.1-0.6) K/mm3 Eos # (Auto) 1.2 H (0-0.3) K/mm3 Baso # (Auto) 0.1 (0.0-0.1) K/mm3 Abs Immat Gran (auto) 0.12 H (0.00-0.031) K/mm3 Absolute Neuts (auto) 7.2 H (1.3-6.7) K/mm3 Absolute Nucleated RBC 0.000 (0.0-0.012) K/mm3 Nucleated RBC % 0.0 (0.0-0.2) % ESR 6 (0-20) mm/hr Sodium 139 (137-145) mmol/L Potassium 5.4 H (3.4-5.0) mmol/L Chloride 109 H (98-107) mmol/L Carbon Dioxide 17 L (22-30) mmol/L Anion Gap 13 H (4-12) mmol/L BUN 37 H (9-20) mg/dL Creatinine 1.86 H (0.7-1.3) mg/dL Estim Creat Clear Calc Not Reportable Estimated GFR 39 L (59 - ) Glucose 84 (65-110) mg/dL Lactic Acid 0.6 L (0.7-2.0) mmol/L Calcium 9.1 (8.4-10.2) mg/dL Total Bilirubin 0.6 (0.2-1.3) mg/dL AST 25 (17-59) U/L ALT 19 (6-50) U/L Alkaline Phosphatase 100 (38-126) U/L C-Reactive Protein 1.2 H (<1.0) mg/dL Total Protein 8.0 (6.3-8.2) g/dL Albumin 3.8 (3.5-5.1) g/dL <Nina Cervantes PA-C - Last Filed: 12/01/24 01:14> Lab Results 11/30/24 11/30/24 Range/Units 20:21 22:38 WBC 11.4 H (4.5-10.0) K/mm3 RBC 3.89 L (4.6-6.20) M/mm3 Hgb 10.9 L (14.0-18.0) g/dL Hct 33.8 L (42.0-52.0) % MCV 86.9 (80-100) fl MCH 28.0 (26-34) pg MCHC 32.2 (32-36) g/dl RDW 16.3 H (11.5-14.5) % Plt Count 261 (150-375) k/mm3 MPV 10.4 (7.4-10.4) fl Immature Gran % (Auto) 1.0 H (0-0.5) % Neut % (Auto) 62.8 (45.5-73.1) % Lymph % (Auto) 18.5 (18.3-44.2) % Owen % (Auto) 6.5 (2.6-8.5) % Eos % (Auto) 10.4 H (0-4.4) % Baso % (Auto) 0.8 (0.2-1.2) % Lymph # (Auto) 2.11 (0.9-3.2) K/mm3 Owen # (Auto) 0.7 H (0.1-0.6) K/mm3 Eos # (Auto) 1.2 H (0-0.3) K/mm3 Baso # (Auto) 0.1 (0.0-0.1) K/mm3 Abs Immat Gran (auto) 0.12 H (0.00-0.031) K/mm3 Absolute Neuts (auto) 7.2 H (1.3-6.7) K/mm3 Absolute Nucleated RBC 0.000 (0.0-0.012) K/mm3 Nucleated RBC % 0.0 (0.0-0.2) % ESR 6 (0-20) mm/hr Sodium 139 (137-145) mmol/L Potassium 5.4 H (3.4-5.0) mmol/L Chloride 109 H (98-107) mmol/L Carbon Dioxide 17 L (22-30) mmol/L Anion Gap 13 H (4-12) mmol/L BUN 37 H (9-20) mg/dL Creatinine 1.86 H (0.7-1.3) mg/dL Estim Creat Clear Calc Not Reportable Estimated GFR 39 L (59 - ) Glucose 84 (65-110) mg/dL Lactic Acid 0.6 L (0.7-2.0) mmol/L Calcium 9.1 (8.4-10.2) mg/dL Total Bilirubin 0.6 (0.2-1.3) mg/dL AST 25 (17-59) U/L ALT 19 (6-50) U/L Alkaline Phosphatase 100 (38-126) U/L C-Reactive Protein 1.2 H (<1.0) mg/dL Total Protein 8.0 (6.3-8.2) g/dL Albumin 3.8 (3.5-5.1) g/dL <Jim Alvarez MD - Last Filed: 12/01/24 06:47> Imaging Data Radiologist's impression: ITS Impressions Tibia/Fibula X-Ray 11/30/24 16:48 IMPRESSION: 1. No evidence of osteomyelitis. Lower Extremity CTA 11/30/24 23:06 IMPRESSION: 1. 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 <Alivia Barrera PA-C - Last Filed: 12/01/24 15:23> Critical Care Time Critical Care Time Critical Care Time: No <Alivia Barrera PA-C - Last Filed: 12/01/24 15:23> Discharge Plan Discharge Clinical Impression: MARIANGEL (acute kidney injury) Cellulitis Qualifiers: Site of cellulitis: extremity Site of cellulitis of extremity: lower extremity Laterality: left Qualified Code(s): L03.116 - Cellulitis of left lower limb Infected ulcer of skin Qualifiers: Non-pressure ulcer stage: unspecified non-pressure ulcer stage Qualified Code(s): L98.499 - Non-pressure chronic ulcer of skin of other sites with unspecified severity <Alivia Barrera PA-C - Last Filed: 12/01/24 15:23> Patient Disposition: Still a Patient <Alivia Barrera PA-C - Last Filed: 12/01/24 15:23> Condition: Stable <Alivia Barrera PA-C - Last Filed: 12/01/24 15:23>
[2024-11-30 20:32] LABS: Basophils Absolute Auto 0.1 K/mm3 (0.0-0.1); Basophils Percent Auto 0.8 % (0.2-1.2); Eosinophils Absolute Auto 1.2 K/mm3 (0-0.3); Eosinophils Percent Auto 10.4 % (0-4.4); Hematocrit 33.8 % (42.0-52.0); Hemoglobin 10.9 g/dL (14.0-18.0); Immature Granulocyte Absolute 0.12 K/mm3 (0.00-0.031); Lymphocytes Absolute Auto 2.11 K/mm3 (0.9-3.2); Lymphocytes Percent Auto 18.5 % (18.3-44.2); Mean Corpuscular HGB Conc 32.2 g/dl (32-36); Mean Corpuscular Volume 86.9 fl (80-100); Mean Platelet Volume 10.4 fl (7.4-10.4); Monocytes Absolute Auto 0.7 K/mm3 (0.1-0.6); Monocytes Percent Auto 6.5 % (2.6-8.5); Neutrophils Absolute Auto 7.2 K/mm3 (1.3-6.7); Neutrophils Percent Auto 62.8 % (45.5-73.1); Platelet Count Result 261 k/mm3 (150-375); Red Blood Count 3.89 M/mm3 (4.6-6.20); Red Cell Distribution Width 16.3 % (11.5-14.5); White Blood Count 11.4 K/mm3 (4.5-10.0)
[2024-11-30 20:51] LABS: Alanine Aminotransferase 19 U/L (6-50); Albumin Level 3.8 g/dL (3.5-5.1); Alkaline Phosphatase 100 U/L (38-126); Anion Gap 13 mmol/L (4-12); Aspartate Amino Transferase 25 U/L (17-59); Bilirubin,Total 0.6 mg/dL (0.2-1.3); Blood Urea Nitrogen 37 mg/dL (9-20); CRP 1.2 mg/dL (<1.0); Calcium 9.1 mg/dL (8.4-10.2); Carbon Dioxide 17 mmol/L (22-30); Chloride 109 mmol/L (98-107); Estimated Glomerular Filt Rate 39; Glucose 84 mg/dL (65-110); Potassium 5.4 mmol/L (3.4-5.0); Sodium 139 mmol/L (137-145)
[2024-11-30 20:57] LABS: Erythrocyte Sedimentation Rate 6 mm/hr (0-20)
--- NOTE | 2024-11-30 21:30 | PC.NURSE ---
Patient is poor historian, is unsure why he is here and where he lives. Patient brief changed, was saturated with urine when placed in room from waiting room. Patient states he is aware of when he needs to go the bathroom, states I didn't say anything though. Patient given call light.
--- OUTSIDE RECORDS SUMMARY | 2024-11-30 21:47 | XMS_ITS | Referral Summary ---
Author Organization [facility] Physician Office Building [address] [place] [phone] Care Team Providers Care Locomotive Inspector Name Role Phone Agustin Suh MD Primary Care Provider + Sergey Velasquez MD Unavailable [phone] Encounters Date Type Department Care Team Description 10/17/2024 3:15 PM WATCH ASSEMBLY INSTRUCTOR Office Visit [facility] Vascular and Vein Surgery [address] [facility] [address] [place] [phone] Salo Alexander MD PVD (peripheral vascular disease) (HCC) (Primary Dx); Stenosis of right carotid artery; Primary hypertension; Mixed hyperlipidemia 10/10/2024 Telephone [facility] Surgery [address] [facility] Floor 1 [place] [phone] Radha Aguilar MD PhD New Referral 10/03/2024 4:40 PM WATCH ASSEMBLY INSTRUCTOR - 10/03/2024 11:59 PM [facility] Hospital Encounter [facility] [address] [place] [id number] Discharge Disposition: Discharge to home or self care 10/02/2024 4:38 PM WATCH ASSEMBLY INSTRUCTOR - 10/02/2024 10:28 PM [facility] Emergency [facility] Emergency Department 1 [place] [phone] Kulwinder Galaviz MD Peripheral artery disease (HCC) (Primary Dx); Multiple opens wound of lower extremity, unspecified laterality, subsequent encounter Discharge Disposition: Discharge to skilled nursing facility from Last 3 Months Allergies Active [...] 10/22/2024 Assessment & Plan (10/22/2024 8:04 AM WATCH ASSEMBLY INSTRUCTOR): Wounds to bilateral lower extremities and CTA [...] 10/22/2024 Assessment & Plan (10/22/2024 8:05 AM WATCH ASSEMBLY INSTRUCTOR): Stable continue Crestor Left hip pain 04/19/2023 [...] 11/29/2021 Assessment & Plan (10/22/2024 8:04 AM WATCH ASSEMBLY INSTRUCTOR): Stable continue metoprolol Assessment & Plan (11/29/2021 9:19 AM WATCH ASSEMBLY INSTRUCTOR): Home benazepril on hold because of recently low blood pressure, will tolerate mild hypertension for now because of suspected orthostatic hypotension. 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 Never 04/12/2023 Do you belong to any clubs o r organizations such as tenriism groups, unions, fraternal or athletic groups, or [...] and heating? Not hard at all 04/12/2023 [facility] [place] [facility] - Occupational Stress [...] place to sleep or slept in a custodial (including now)? No 04/12/2023 Personal Safety Answer [...] on file Legal Sex Male 9:46 AM WATCH ASSEMBLY INSTRUCTOR Gender Identity Not on file Sexual Orientation Not on file Last Filed Vital Signs Vital Sign Reading Time Taken Comments Blood Pressure 106/71 10/17/2024 3:40 PM WATCH ASSEMBLY INSTRUCTOR Pulse 80 10/17/2024 3:40 PM WATCH ASSEMBLY INSTRUCTOR Temperature 36.6 ??C (97.9 ??F) 10/02/2024 4:14 PM CS T Respiratory Rate 16 10/02/2024 10:00 PM WATCH ASSEMBLY INSTRUCTOR Oxygen Saturation 97% 10/02/2024 10:00 PM WATCH ASSEMBLY INSTRUCTOR Inhaled Oxygen Concentration - - Weight 84.4 kg (186 lb) 10/17/2024 3:40 PM WATCH ASSEMBLY INSTRUCTOR Height 170.2 cm (5' 7 ) 10/17/2024 3:40 PM WATCH ASSEMBLY INSTRUCTOR Body Mass Index 29.13 10/17/2024 3:40 PM WATCH ASSEMBLY INSTRUCTOR Plan of Treatment Not on file Procedures Procedure Name Priority Date/Time Associated Diagnosis Comments CT BODY OUTSIDE REFERENCE Routine 10/03/2024 4:40 PM WATCH ASSEMBLY INSTRUCTOR EGFR STAT 10/02/2024 5:44 PM WATCH ASSEMBLY INSTRUCTOR DIFFERENTIAL AUTO STAT 10/02/2024 5:4 4 PM WATCH ASSEMBLY INSTRUCTOR CRP (ACUTE PHASE) STAT 10/02/2024 5:4 4 PM WATCH ASSEMBLY INSTRUCTOR ERYTHROCYTE SEDIMENTATION RATE STAT 10/02/2024 5:44 PM WATCH ASSEMBLY INSTRUCTOR LACTATE STAT 10/02/2024 5:44 PM WATCH ASSEMBLY INSTRUCTOR PROTIME-INR STAT 10/02/2024 5:44 PM WATCH ASSEMBLY INSTRUCTOR COMPREHENSIVE METABOLIC PANEL STAT 10/02/2024 5:44 PM WATCH ASSEMBLY INSTRUCTOR CBC WITH AUTO DIFFERENTIAL STAT 10/02/2024 5:44 PM WATCH ASSEMBLY INSTRUCTOR HEPATITIS C ANTIBODY Routine 04/18/2023 10:35 AM CDT COLONOSCOPY 03/10/2021 9:39 AM CDT from Last 3 Months or Most Recently Relevant to Health Maintenance Results * CT Body Outside Reference (10/03/2024 4:40 PM WATCH ASSEMBLY INSTRUCTOR) Impressions [facility] - 10/03/2024 4:40 PM WATCH ASSEMBLY INSTRUCTOR These images are for Reference purposes only and have not been reviewed by [facility] Radiology. ??There will be no report generated by a [facility] Radiologist. Narrative RAD_PACS[facility] - 10/03/2024 4:40 PM WATCH ASSEMBLY INSTRUCTOR EXAMINATION: ??Images For Reference Purposes Only us Radha Aguilar MD PhD IMG CT PROCEDURES Lakisha l Result [facility] * Lactate (10/02/2024 5:44 PM WATCH ASSEMBLY INSTRUCTOR) Lactate 1.0 0.7 - 2.0 mmol/L Blood 10/02/2024 5:44 PM WATCH ASSEMBLY INSTRUCTOR 10/02/2024 5:55 PM WATCH ASSEMBLY INSTRUCTOR us Kulwinder Galaviz MD LAB BLOOD ORDERABLES Final Result [facility] [place] [address] * (ABNORMAL) eGFR (10/02/2024 5:44 PM WATCH ASSEMBLY INSTRUCTOR) eGFR 34(L) >=60 mL/min/1. 73 m2 Comment: [...] last reviewed 2021. Blood 10/02/2024 5:44 PM WATCH ASSEMBLY INSTRUCTOR 10/02/2024 5:55 PM WATCH ASSEMBLY INSTRUCTOR us Kulwinder Galaviz MD LAB BLOOD ORDERABLES Final Result [facility] [place] [address] * (ABNORMAL) Differential, auto (10/02/2024 5:44 PM WATCH ASSEMBLY INSTRUCTOR) Neutrophil abs 3.7 1.5 - 6.5 K/cumm Imm gran abs 0.1 0.0 - 0.1 K/cumm [facility] Lymphocyte abs 1.8 0.8 - 3.3 K/cumm [facility] Monocyte abs 0.7 0.2 - 0.8 K/cumm [facility] Eosinophil abs 0.7(H) 0.0 - 0.5 K/cumm [facility] Basophil abs 0.0 0.0 - 0.1 K/cumm [facility] Neutrophil pct 53.1 % [facility] Comment: Interpretive Data Percent cell count reference ranges are not reported, since discordance with absolute values may lead to misinterpretation of CBC data. Current Interpretive Data was last revised on 2018. Imm gran pct 0.9 % [facility] Comment: Interpretive Data Percent cell count reference ranges are not reported, since discordance with absolute values may lead to misinterpretation of CBC data. Current Interpretive Data was last revised on 2018. Lymphocyte pct 25.9 % [facility] Comment: Interpretive Data Percent cell count reference ranges are not reported, since discordance with absolute values may lead to misinterpretation of CBC data. Current Interpretive Data was last revised on 2018. Monocyte pct 10.0 % [facility] Comment: Interpretive Data Percent cell count reference ranges are not reported, since discordance with absolute values may lead to misinterpretation of CBC data. Current Interpretive Data was last revised on 2018. Eosinophil pct 9.7 % [facility] Comment: Interpretive Data Percent cell count reference ranges are not reported, since discordance with absolute values may lead to misinterpretation of CBC data. Current Interpretive Data was last revised on 2018. Basophil pct 0.4 % [facility] Comment: Interpretive Data Percent cell count reference ranges are not reported, since discordance with absolute values may lead to misinterpretation of CBC data. Current Interpretive Data was last revised on 2018. Blood 10/02/2024 5:44 PM WATCH ASSEMBLY INSTRUCTOR 10/02/2024 5:55 PM WATCH ASSEMBLY INSTRUCTOR Kulwinder Galaviz MD LAB BLOOD ORDERABLES Final Result [facility] [place] [address] * (ABNORMAL) CBC with auto differential (10/02/2024 5:44 PM WATCH ASSEMBLY INSTRUCTOR) WBC 6.9 3.8 - 9.9 K/cumm Hgb 10.2(L) 13.0 - 17.5 g/dL [facility] Hct 32.1(L) 38.9 - 50.3 % [facility] Plt 234 150 - 400 K/cumm [facility] MPV 9.5 9.1 - 12.3 fL [facility] RBC 3.80(L) 4.30 - 5.80 M/cumm [facility] MCV 84.5 81.3 - 96.4 fL [facility] MCH 26.8(L) 27.1 - 33.3 pg [facility] MCHC 31.8(L) 32.3 - 35.7 g/dL [facility] RDW CV 16.7(H) 11.1 - 14.9 % [facility] RDW SD 51.4(H) 35.7 - 48.1 fL [facility] NRBC abs 0.00 0.00 - 0.01 K/cumm [facility] Blood 10/02/2024 5:44 PM WATCH ASSEMBLY INSTRUCTOR 10/02/2024 5:55 PM WATCH ASSEMBLY INSTRUCTOR Kulwinder Galaviz MD LAB BLOOD ORDERABLES Final Result Performing Organization Address [facility]/ZIP Co de Phone Number [facility] [place] [address] * (ABNORMAL) Erythrocyte sedimentation rate (10/02/2024 5:44 PM WATCH ASSEMBLY INSTRUCTOR) Erythrocyte sedimentation rate 81(H) 1 - 15 mm/hr Blood 10/02/2024 5:44 PM WATCH ASSEMBLY INSTRUCTOR 10/02/2024 5:55 PM WATCH ASSEMBLY INSTRUCTOR Kulwinder Galaviz MD LAB BLOOD ORDERABLES Final Result [facility] [place] [address] * (ABNORMAL) Protime-INR (10/02/2024 5:44 PM WATCH ASSEMBLY INSTRUCTOR) PT 14.1(H) 9.7 - 13.0 sec INR 1.30(H) 0.90 - 1.20 [facility] Comment: Interpretive data Oral anticoagulant therapeutic ranges: Venous thromboembolism prophylaxis or treatment: 2.0-3.0 CARDIOLOGY Standard range: 2.0-3.0 High-intensity range: 2.5-3.5 Refer to indication-specific guidelines for appropriate target ranges for prosthetic heart valve replacement. Current interpretive data was last revised on 2019. Blood 10/02/2024 5:44 PM WATCH ASSEMBLY INSTRUCTOR 10/02/2024 6:01 PM WATCH ASSEMBLY INSTRUCTOR Kulwinder Galaviz MD LAB BLOOD ORDERABLES Final Result [facility] [place] [address] * (ABNORMAL) CRP (acute phase) (10/02/2024 5:44 PM WATCH ASSEMBLY INSTRUCTOR) CRP 25.3(H) <=10.0 mg/L Blood 10/02/2024 5:44 PM WATCH ASSEMBLY INSTRUCTOR 10/02/2024 5:55 PM WATCH ASSEMBLY INSTRUCTOR us Kulwinder Galaviz MD LAB BLOOD ORDERABLES Final Result [facility] [place] [address] * (ABNORMAL) Comprehensive metabolic panel (10/02/2024 5:44 PM WATCH ASSEMBLY INSTRUCTOR) Sodium 140 135 - 145 mmol/L Potassium, pl 5.1(H) 3.3 - 4.9 mmol/L [facility] Chloride 109 97 - 110 mmol/L [facility] CO2 23 22 - 32 mmol/L [facility] Anion gap 8 2 - 15 mmol/L [facility] BUN 25 6 - 25 mg/dL [facility] Creatinine 2.30(H) 0.80 - 1.30 mg/dL [facility] Glucose 83 70 - 199 mg/dL [facility] Comment: Interpretive Data Fasting glucose >/= 126 [...] 2022. Calcium 8.7 8.5 - 10.3 mg/dL [facility] Bilirubin, total 0.3 0.1 - 1.2 mg/dL [facility] Protein, pl 7.2 6.5 - 8.5 g/dL [facility] Albumin 3.4(L) 3.5 - 5.0 g/dL [facility] Alk phos 60 40 - 130 Units/L [facility] ALT 10 7 - 55 Units/L [facility] AST 25 10 - 50 Units/L [facility] Blood 10/02/2024 5:44 PM WATCH ASSEMBLY INSTRUCTOR 10/02/2024 5:55 PM WATCH ASSEMBLY INSTRUCTOR Kulwinder Galaviz MD LAB BLOOD ORDERABLES Final Result [facility] [place] [address] * Hepatitis C antibody (04/18/2023 10:35 AM CDT) Hep C Ab Nonreactive Nonreactive [facility] Comment: Interpretive Data Nonreactive: Antibodies to [...] Edited Result - Final Performing Organization Address [facility]/ZIP Co de Phone Number [facility] [address] [place] [address] * COLONOSCOPY (03/10/2021 9:39 AM CDT) Anatomical Region Laterality Modality Other Narrative Procedure Note Amparo Logan MD - 03/10/2021 9:39 AM CDT [facility] Endoscopy Lab Patient Name: Dwight Funez Procedure [...] 2 yrs. Procedure Code(s): --- Professional --- 71242, Colonoscopy, flexible; with biopsy, singleor multiple Diagnosis Code(s): --- Professional --- K63.5, Polyp of colon K63.89, Other specified diseases of intestine D50.9, Iron deficiency anemia, unspecified CPT copyright 2019 [employer]. All rights reserved. The codes documented in this report are preliminary and upon trend investigator reviewmay be revised to meet current compliance requirements. Electronically signed by Desmond Christensen MD Amparo Logan M.D. 03/10/2021 10:12:39 AM This report has been electronically signed by the physician. Number of Addenda: 0 Note Initiated On: 03/10/2021 9:39 AM Amparo Logan MD ENDOSCOPY PROCEDURES Final Re sult from Last 3 Months or Most Recently Relevant to Health Maintenance Insurance IDTN IDTN [facility] MEDICARE MEDICARE SOLUTIONS [facility] MEDICARE Advance Directives For more information, please contact: [phone] Documents on File Type Date Recorded Patient Regional Operations Manager Expl anation ADVANCE DIRECTIVE 03/16/2023 10:27 [...] 10:23 PM 11/30/2021 9:40 PM Care Teams Locomotive Inspector Relationship Specialty [place] [address] [facility] [place] [address] PCP - General 07/11/20 [place] [address] [facility] [place] [address] Consulting Physician Cardiology 11/30/21
--- OUTSIDE RECORDS SUMMARY | 2024-11-30 21:47 | XMS_ITS | Continuity of Care Document ---
Author Organization [facility] Address [address] [place] [address] Phone Care Team Providers Care Program Director Scouting Name Role Phone Christina Resendiz Unavailable Unavailable Advance Directives Directive Yes / No Effective Date File Name No Information Encounters Encounter Description Practice Location Reason(s) For Visit Diagnoses Date Provider Providers Copied on Encounter [facility], [address], [place], [place], [id number], [place] tel:[phone] SEC [facility] No Information [address] Astrid Vasquez. [address] [facility] , [address], [place], [address], [place]. tel:[phone] Family History Family Member Type Diagnosis Age At Onset No Information Payers Payer name Insurance type Covered libertarian ID Authoriza tiskylar(s) [employer] SOI CI [id number] Social History Type Description Quantity Date Captured [...]
--- OUTSIDE RECORDS SUMMARY | 2024-11-30 21:47 | XMS_ITS | Clinical Summary ---
Author Organization [facility] [address] [place] [id number] Care Team Providers Care Electrophysiology Scientist Name Role Phone Agustin Suh MD Primary [...] 10/22/2024 Assessment & Plan (10/22/2024 8:04 AM TRIM SETTER): Wounds to bilateral lower extremities and CTA [...] 10/22/2024 Assessment & Plan (10/22/2024 8:05 AM TRIM SETTER): Stable continue Crestor Left hip pain 04/19/2023 [...] 11/29/2021 Assessment & Plan (10/22/2024 8:04 AM TRIM SETTER): Stable continue metoprolol Assessment & Plan (11/29/2021 9:19 AM TRIM SETTER): Home benazepril on hold because of recently low blood pressure, will tolerate mild hypertension for now because of suspected orthostatic hypotension. 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) 03/11/2023 03/11/2023 Lab test positive for detect ion of COVID-19 virus 03/04/2023 03/14/2023 Non-traumatic rhabdomyolysis 02/07/2023 03/07/2023 Encounters Date Type Department Care Team Description 10/17/2024 3:15 PM TRIM SETTER Office Visit [facility] [address] [facility] [address] [place] [phone] Salo Alexander MD PVD (peripheral vascular disease) (HCC) (Primary Dx); Stenosis of right carotid artery; Primary hypertension; Mixed hyperlipidemia 10/10/2024 Telephone [facility] [address] [facility] Floor 1 [place] [address] Radha Aguilar MD PhD New Referral 10/03/2024 4:40 PM TRIM SETTER - 10/03/2024 11:59 PM TRIM SETTER Hospital Encounter [facility] [address] [place] [id number] Discharge Disposition: Discharge to home or self care 10/02/2024 4:38 PM TRIM SETTER - 10/02/2024 10:28 PM TRIM SETTER Emergency [facility] Emergency Department 1 [place] [phone] Kulwinder Galaviz MD Peripheral artery disease (HCC) (Primary Dx); Multiple opens wound of lower extremity, unspecified laterality, subsequent encounter Discharge Disposition: Discharge to [facility] facility from Last 3 Months Surgical History Surgery Date Site/Laterality Comments COLONOSCOPY 01/29/2021 - 02/27/2021 inadequet prep COLONOSCOPY 03/10/2021 routine screen WRIST SURGERY right LUMBAR PUNCTURE WO INJECTION , DIAGNOSTIC 04/15/2023 N/A Medical History Medical History Date Comments Hx Other Medical Not Claustropho bic; Comments: [facility] 07/29/2014 - Stroke (HCC) Seizures [...] How often do you attend chur or yazdanism services? Never 04/12/2023 Do you belong to any clubs o r organizations such as sikhism groups, unions, fraternal or athletic groups, or [...] and heating? Not hard at all 04/12/2023 [facility] Occupat ional Health - Occupational Stress [...] place to sleep or slept in a detention (including now)? No 04/12/2023 Personal Safety Answer [...] on file Legal Sex Male 9:46 AM TRIM SETTER Gender Identity Not on file Sexual Orientation Not on file Obstetrics History Last Filed Vital Signs Vital Sign Reading Time Taken Comments Blood Pressure 106/71 10/17/2024 3:40 PM TRIM SETTER Pulse 80 10/17/2024 3:40 PM TRIM SETTER Temperature 36.6 ??C (97.9 ??F) 10/02/2024 4:14 PM CS T Respiratory Rate 16 10/02/2024 10:00 PM TRIM SETTER Oxygen Saturation 97% 10/02/2024 10:00 PM TRIM SETTER Inhaled Oxygen Concentration - - Weight 84.4 kg (186 lb) 10/17/2024 3:40 PM TRIM SETTER Height 170.2 cm (5' 7 ) 10/17/2024 3:40 PM TRIM SETTER Body Mass Index 29.13 10/17/2024 3:40 PM TRIM SETTER Plan of Treatment Health Maintenance Due Date [...] BODY OUTSIDE REFERENCE Routine 10/03/2024 4:40 PM TRIM SETTER EGFR STAT 10/02/2024 5:44 PM TRIM SETTER DIFFERENTIAL AUTO STAT 10/02/2024 5:4 4 PM TRIM SETTER CRP (ACUTE PHASE) STAT 10/02/2024 5:4 4 PM TRIM SETTER ERYTHROCYTE SEDIMENTATION RATE STAT 10/02/2024 5:44 PM TRIM SETTER LACTATE STAT 10/02/2024 5:44 PM TRIM SETTER PROTIME-INR STAT 10/02/2024 5:44 PM TRIM SETTER COMPREHENSIVE METABOLIC PANEL STAT 10/02/2024 5:44 PM TRIM SETTER CBC WITH AUTO DIFFERENTIAL STAT 10/02/2024 5:44 PM TRIM SETTER HEPATITIS C ANTIBODY Routine 04/18/2023 10:35 AM CDT COLONOSCOPY 03/10/2021 9:39 AM CDT from Last 3 Months or Most Recently Relevant to Health Maintenance Results * CT Body Outside Reference (10/03/2024 4:40 PM TRIM SETTER) Impressions [facility] - 10/03/2024 4:40 PM TRIM SETTER These images are for Reference purposes only and have not been reviewed by [facility]. ??There will be no report generated by a [facility] Radiologist. Narrative RAD_[facility] - 10/03/2024 4:40 PM TRIM SETTER EXAMINATION: ??Images For Reference Purposes Only us Radha Aguilar MD PhD IMG CT PROCEDURES Lakisha l Result RAD_PACS_[facility] * Lactate (10/02/2024 5:44 PM TRIM SETTER) Lactate 1.0 0.7 - 2.0 mmol/L Blood 10/02/2024 5:44 PM TRIM SETTER 10/02/2024 5:55 PM TRIM SETTER us Kulwinder Galaviz MD LAB BLOOD ORDERABLES Final Result [facility] Department [place] [address] * (ABNORMAL) eGFR (10/02/2024 5:44 PM TRIM SETTER) eGFR 34(L) >=60 mL/min/1. 73 m2 Comment: [...] last reviewed 2021. Blood 10/02/2024 5:44 PM TRIM SETTER 10/02/2024 5:55 PM TRIM SETTER us Kulwinder Galaviz MD LAB BLOOD ORDERABLES Final Result Performing Organization Address City/State/[facility] Co de Phone Number [facility] Department [place] [address] * (ABNORMAL) Differential, auto (10/02/2024 5:44 PM TRIM SETTER) Neutrophil abs 3.7 1.5 - 6.5 K/cumm Imm gran abs 0.1 0.0 - 0.1 K/cumm [facility] Lymphocyte abs 1.8 0.8 - 3.3 K/cumm [facility] Monocyte abs 0.7 0.2 - 0.8 K/cumm [facility] Eosinophil abs 0.7(H) 0.0 - 0.5 K/cumm [facility] Basophil abs 0.0 0.0 - 0.1 K/cumm [facility] Neutrophil pct 53.1 % [facility] Comment: Interpretive Data Percent cell count reference ranges are not reported, since discordance with absolute values may lead to misinterpretation of CBC data. Current Interpretive Data was last revised on 2018. Imm gran pct 0.9 % [facility] Comment: Interpretive Data Percent cell count reference ranges are not reported, since discordance with absolute values may lead to misinterpretation of CBC data. Current Interpretive Data was last revised on 2018. Lymphocyte pct 25.9 % [facility] Comment: Interpretive Data Percent cell count reference ranges are not reported, since discordance with absolute values may lead to misinterpretation of CBC data. Current Interpretive Data was last revised on 2018. Monocyte pct 10.0 % [facility] Comment: Interpretive Data Percent cell count reference ranges are not reported, since discordance with absolute values may lead to misinterpretation of CBC data. Current Interpretive Data was last revised on 2018. Eosinophil pct 9.7 % [facility] Comment: Interpretive Data Percent cell count reference ranges are not reported, since discordance with absolute values may lead to misinterpretation of CBC data. Current Interpretive Data was last revised on 2018. Basophil pct 0.4 % [facility] Comment: Interpretive Data Percent cell count reference ranges are not reported, since discordance with absolute values may lead to misinterpretation of CBC data. Current Interpretive Data was last revised on 2018. Blood 10/02/2024 5:44 PM TRIM SETTER 10/02/2024 5:55 PM TRIM SETTER us Kulwinder Galaviz MD LAB BLOOD ORDERABLES Final Result [facility] Department of Laboratories [place], [place] [id number] * (ABNORMAL) CBC with auto differential (10/02/2024 5:44 PM TRIM SETTER) WBC 6.9 3.8 - 9.9 K/cumm Hgb 10.2(L) 13.0 - 17.5 g/dL [facility] Hct 32.1(L) 38.9 - 50.3 % [facility] Plt 234 150 - 400 K/cumm [facility] MPV 9.5 9.1 - 12.3 fL [facility] RBC 3.80(L) 4.30 - 5.80 M/cumm [facility] MCV 84.5 81.3 - 96.4 fL [facility] MCH 26.8(L) 27.1 - 33.3 pg [facility] MCHC 31.8(L) 32.3 - 35.7 g/dL [facility] RDW CV 16.7(H) 11.1 - 14.9 % [facility] RDW SD 51.4(H) 35.7 - 48.1 fL [facility] NRBC abs 0.00 0.00 - 0.01 K/cumm [facility] Blood 10/02/2024 5:44 PM TRIM SETTER 10/02/2024 5:55 PM TRIM SETTER Kulwinder Galaviz MD LAB BLOOD ORDERABLES Final Result Performing Organization Address City/[facility] Co de Phone Number [facility] [place] [place] [address] * (ABNORMAL) Erythrocyte sedimentation rate (10/02/2024 5:44 PM TRIM SETTER) Pathologist [facility] Erythrocyte sedimentation rate 81(H) 1 - 15 mm/hr Blood 10/02/2024 5:44 PM TRIM SETTER 10/02/2024 5:55 PM TRIM SETTER Kulwinder Galaviz MD LAB BLOOD ORDERABLES Final Result Performing Organization Address City/State/[facility] Co de Phone Number [facility] [place] [place] [address] * (ABNORMAL) Protime-INR (10/02/2024 5:44 PM TRIM SETTER) Pathologist [facility] PT 14.1(H) 9.7 - 13.0 sec INR 1.30(H) 0.90 - 1.20 [facility] Comment: Interpretive data Oral anticoagulant therapeutic ranges: Venous thromboembolism prophylaxis or treatment: 2.0-3.0 CARDIOLOGY Standard range: 2.0-3.0 High-intensity range: 2.5-3.5 Refer to indication-specific guidelines for appropriate target ranges for prosthetic heart valve replacement. Current interpretive data was last revised on 2019. Blood 10/02/2024 5:44 PM TRIM SETTER 10/02/2024 6:01 PM TRIM SETTER Kulwinder Galaviz MD LAB BLOOD ORDERABLES Final Result [facility] Department [place] [address] * (ABNORMAL) CRP (acute phase) (10/02/2024 5:44 PM TRIM SETTER) [facility] CRP 25.3(H) <=10.0 mg/L Blood 10/02/2024 5:44 PM TRIM SETTER 10/02/2024 5:55 PM TRIM SETTER Kulwinder Galaviz MD LAB BLOOD ORDERABLES Final Result Performing Organization Address City/[facility] Co de Phone Number [facility] [place] [address] * (ABNORMAL) Comprehensive metabolic panel (10/02/2024 5:44 PM TRIM SETTER) [facility] Sodium 140 135 - 145 mmol/L Potassium, pl 5.1(H) 3.3 - 4.9 mmol/L [facility] Chloride 109 97 - 110 mmol/L [facility] CO2 23 22 - 32 mmol/L [facility] Anion gap 8 2 - 15 mmol/L [facility] BUN 25 6 - 25 mg/dL [facility] Creatinine 2.30(H) 0.80 - 1.30 mg/dL [facility] Glucose 83 70 - 199 mg/dL [facility] Comment: Interpretive Data Fasting glucose >/= [...] 2022. Calcium 8.7 8.5 - 10.3 mg/dL [facility] Bilirubin, total 0.3 0.1 - 1.2 mg/dL [facility] Protein, pl 7.2 6.5 - 8.5 g/dL [facility] Albumin 3.4(L) 3.5 - 5.0 g/dL [facility] Alk phos 60 40 - 130 Units/L [facility] ALT 10 7 - 55 Units/L [facility] AST 25 10 - 50 Units/L [facility] Blood 10/02/2024 5:44 PM TRIM SETTER 10/02/2024 5:55 PM TRIM SETTER us Kulwinder Galaviz MD LAB BLOOD ORDERABLES Final Result [facility] [place] [address] * Hepatitis C antibody (04/18/2023 10:35 AM CDT) Hep C Ab Nonreactive Nonreactive [facility] Comment: Interpretive Data Nonreactive: Antibodies to [...] AL ORDERABLES Edited Result - Final [facility] [address] Department [place] [address] * COLONOSCOPY (03/10/2021 9:39 AM CDT) Anatomical Region Laterality Modality Other Narrative Procedure Note Amparo Logan MD - 03/10/2021 9:39 AM CDT [facility] Patient Name: Dwight Funez [...] 2 yrs. Procedure Code(s): --- Professional --- 56769, Colonoscopy, flexible; with biopsy, singleor multiple Diagnosis Code(s): --- Professional --- K63.5, Polyp of colon K63.89, Other specified diseases of intestine D50.9, Iron deficiency anemia, unspecified CPT copyright 2019 [employer]. All rights reserved. The codes documented in this report are preliminary and upon oyster buyer reviewmay be revised to meet current compliance [...] [facility] MEDICARE MEDICARE SOLUTIONS 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
--- NOTE | 2024-11-30 22:46 | PC.NURSE ---
Patient taken to CT via stretcher at this time.
[2024-11-30 23:04] LABS: Lactic Acid Reflex 0.6 mmol/L (0.7-2.0)
--- NOTE | 2024-11-30 23:57 | PC.NURSE ---
Pulse identified in Left foot with doppler. VORB to cover wounds with telfa, kerlix and coban.
[2024-12-01] VITALS (17 sets, daily range): BP systolic 119–177; BP diastolic 81–115; PULSE 78–103; RESP 11–19; TEMP 36.2–37; O2SAT 96–100; BMI 32.8
[2024-12-01] MEDS: SODIUM CHLORIDE 0.9% IV 1,000 ML 999 ML IV CONT (01:25)
[2024-12-01] MEDS: PIPERACILLN/TAZ 3.375GM/NS50ML 3.375 GM/50 ML BAG IVPB ×4 (01:50→20:42)
[2024-12-01 02:01] LABS: Magnesium 1.8 mg/dL (1.6-2.3)
[2024-12-01] MEDS: VANCOMYCIN 1,500 MG/NS 500 ML 1,500 MG/500 ML BAG 250 MG IVPB (02:21)
--- NOTE | 2024-12-01 03:11 | PC.NURSE ---
Pt uncooperative with bp. Patient taking off bp cuff.
--- NOTE | 2024-12-01 04:19 | ADMGEN ---
This patient, Dwight Funez, was admitted to [facility] Surg Room 327-01. Patient/family oriented to hospital policies and general routines including ID bracelet, bed and alarms, visiting hours, pain management, procedures, bathroom and other care routines, personal items, smoking policy, room service/diet, and visiting hours. Information on how to activate the Rapid Response Team has been discussed. Patient/Family are encouraged to report perceived risks to care and to ask questions if they do not understand what they are told or what they should do.
[2024-12-01 09:11] LABS: Basophils Absolute Auto 0.1 K/mm3 (0.0-0.1); Basophils Percent Auto 0.5 % (0.2-1.2); Eosinophils Absolute Auto 0.6 K/mm3 (0-0.3); Eosinophils Percent Auto 5.8 % (0-4.4); Hematocrit 31.7 % (42.0-52.0); Hemoglobin 10.3 g/dL (14.0-18.0); Immature Granulocyte Absolute 0.09 K/mm3 (0.00-0.031); Immature Granulocyte Percent A 0.9 % (0-0.5); Lymphocytes Absolute Auto 1.23 K/mm3 (0.9-3.2); Lymphocytes Percent Auto 12.8 % (18.3-44.2); Mean Corpuscular HGB Conc 32.5 g/dl (32-36); Mean Corpuscular Hemoglobin 28.4 pg (26-34); Mean Corpuscular Volume 87.3 fl (80-100); Mean Platelet Volume 9.7 fl (7.4-10.4); Monocytes Absolute Auto 0.7 K/mm3 (0.1-0.6); Monocytes Percent Auto 7.7 % (2.6-8.5); Neutrophils Absolute Auto 6.9 K/mm3 (1.3-6.7); Neutrophils Percent Auto 72.3 % (45.5-73.1); Platelet Count Result 225 k/mm3 (150-375); Red Blood Count 3.63 M/mm3 (4.6-6.20); Red Cell Distribution Width 16.1 % (11.5-14.5); White Blood Count 9.6 K/mm3 (4.5-10.0)
[2024-12-01 09:25] LABS: Alanine Aminotransferase 18 U/L (6-50); Albumin Level 3.4 g/dL (3.5-5.1); Alkaline Phosphatase 95 U/L (38-126); Anion Gap 6 mmol/L (4-12); Aspartate Amino Transferase 26 U/L (17-59); Bilirubin,Total 0.6 mg/dL (0.2-1.3); Blood Urea Nitrogen 31 mg/dL (9-20); Calcium 8.9 mg/dL (8.4-10.2); Carbon Dioxide 23 mmol/L (22-30); Chloride 111 mmol/L (98-107); Estimated CRCL calculation 51 ml/min; Estimated Glomerular Filt Rate 42; Glucose 93 mg/dL (65-110); Phosphorus 3.1 mg/dL (2.5-4.5); Potassium 5.9 mmol/L (3.4-5.0); Sodium 140 mmol/L (137-145)
--- NOTE | 2024-12-01 10:00 | P.HP_ITS ---
H&P: HPI History of Present Illness Date/Time: 12/01/24 10:00 Chief Complaint: Left leg pain. Narrative: Patient is a 49 year old male that currently resides at [facility]. Patient is a poor historian. Spoke with nurse at [facility]. She stated that patient was seen by Dr. Laura she thought was at [place], I called and patient seen by Dr. Haresh Laura Vascular at [facility] on 11/29/24. Per the note patient will need a LAIF and an RAIF but she is unsure when he is supposed to be seen next. Spoke with [facility] and verified that patient seen Dr. Laura there on 11/29/24. Called and presented patient to their transfer center, waiting to hear back. Patient told me year is 2004, he is at the hospital and it is September. Patient reports that he usually gets around in a wheelchair. Patient reports pain in left knees is a 6 , sharp, and occasional. EXAMINATION: XR tibia fibula LT 2V DATE: 11/30/2024 16:48 FINDINGS: Alignment is normal. No fracture. There is mild left knee osteoarthritis. No knee joint effusion. IMPRESSION: 1. No evidence of osteomyelitis. CTA Left LE: FINDINGS: There is no significant stenosis of the included portion of left superficial femoral artery. There is severe stenosis of the above-knee popliteal artery. There is no significant stenosis of the tibioperoneal trunk, anterior tibial artery, posterior tibial artery, or the peroneal artery. Again seen is an 8 mm radiopaque foreign body in the musculature of the foot. IMPRESSION: 1. 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 Lab work shows leukocytosis of 11.4, chronic anemia with hemoglobin of 10.9. Chemistries with a creatinine of 1.86, which recent creatinine in September of 2024 was 2.3. Bicarb 17, anion gap 13, potassium is 5.4, all likely secondary to chronic underlying CKD vs MARIANGEL. fluids provided. ESR within normal limits. Lactic normal at 0.6. Review of Systems Review of Systems: All systems reviewed & are unremarkable except as noted in HPI and below PMFSH Past Medical History Medical History Anemia Anxiety Ataxia Behavior problems Bipolar disorder BPH (benign prostatic hyperplasia) Brain injury Bronchitis Cerebrovascular disease Cognitive impairment CVA (cerebral vascular accident) Delirium Dementia Epilepsy History of TIA (transient ischemic attack) and stroke HTN (hypertension) Major depressive disorder Panic disorder Pneumonia Seizure disorder Shoulder fracture, left Urine retention Vitamin B deficiency Vitamin D deficiency Social History Social History (Updated 10/01/24 @ 19:16 by Nettie Chaudhry MD) Social History: POLST notes Do Not Attempt Resuscitation (DNR), comfort-focused treatment Smoking packs per day: 1 Smoking cigarettes per day: 20.0 Years smoked: 15 Smoking pack-years: 15.00 Smoking status: Current every day smoker Tobacco type: cigarettes Alcohol intake: never Substance use: never Substance use type: does not use Do You Feel Safe in your Home?: Yes Lack of Transportation: No Lack of Food: Never True Current Housing: I Have Housing Concerned About Future Housing: No Difficulty Paying Gas/Electric Bills: No Difficulty Paying for Meds: No Currently Unemployed: No Education: Don't Know Difficulty w/ Childcare or Family Care: No Living arrangements: intermediate Additional living arrangements comments: [facility] Gender identity (if verbalized by the patient): Male Spiritual care concerns: No Meds Home Medications and Allergies Home Medications ?Medication ?Instructions ?Recorded ?Confirmed ?Type albuterol sulfate 90 mcg/actuation 1 puff inhalation QID PRN Dyspnea 12/16/19 12/01/24 History aerosol inhaler alprazolam 0.5 mg tablet 0.25 mg PO BID PRN Anxiety 12/16/19 12/01/24 History naproxen 500 mg tablet (Naprosyn) 500 mg PO BID #20 tabs 04/01/24 12/01/24 Rx ascorbic acid (vitamin C) 500 mg 500 mg PO DAILY 12/01/24 12/01/24 History tablet (Vitamin C) aspirin 81 mg chewable tablet 1 tablet PO DAILY 12/01/24 12/01/24 History atorvastatin 40 mg tablet (Lipitor) 40 mg PO HS 12/01/24 12/01/24 History buspirone 10 mg tablet 10 mg PO TID 12/01/24 12/01/24 History cholecalciferol (vitamin D3) 50 50 mcg PO DAILY 12/01/24 12/01/24 History mcg (2,000 unit) capsule cyanocobalamin (vitamin B-12) 500 500 mcg PO DAILY 12/01/24 12/01/24 History mcg tablet (B-12 DOTS) divalproex 500 mg tablet,delayed 500 mg PO DAILY 12/01/24 12/01/24 History release (Depakote) famotidine 20 mg tablet 20 mg PO DAILY 12/01/24 12/01/24 History fluoxetine 20 mg capsule 60 mg PO DAILY 12/01/24 12/01/24 History gabapentin 100 mg capsule 100 mg PO TID 12/01/24 12/01/24 History levetiracetam 1,000 mg tablet 1,000 mg PO BID 12/01/24 12/01/24 History (Keppra) lisinopril 5 mg tablet 5 mg PO DAILY 12/01/24 12/01/24 History lorazepam 0.5 mg tablet 0.5 mg sublingual DAILY PRN anxiety 12/01/24 12/01/24 History metoprolol tartrate 50 mg tablet 50 mg PO BID 12/01/24 12/01/24 History (Lopressor) quetiapine 100 mg tablet 125 mg PO TID 12/01/24 12/01/24 History sennosides 8.6 mg-docusate sodium 1 tab-cap PO DAILY 12/01/24 12/01/24 History 50 mg tablet (2-in-1 Laxative) tamsulosin 0.4 mg capsule (Flomax) 0.4 mg PO HS 12/01/24 12/01/24 History tramadol 50 mg tablet 50 mg PO BID PRN pain 12/01/24 12/01/24 History trazodone 50 mg tablet 50 mg PO HS 12/01/24 12/01/24 History venlafaxine 150 mg 150 mg PO DAILY 12/01/24 12/01/24 History capsule,extended release 24 hr Allergies Allergy/AdvReac Type Severity Reaction Status Date / Time ziprasidone (From [facility]) Allergy Hives Verified 10/01/24 21:04 Vital Signs Vital Signs - 24 hr 11/30/24 15:14 11/30/24 21:28 11/30/24 21:45 Temperature 97.6 F 98.1 F Pulse Rate 89 94 80 Respiratory Rate 16 14 16 Blood Pressure 124/94 H 154/99 H Pulse Oximetry 100 99 99 Oxygen Delivery Room Air 11/30/24 22:00 11/30/24 22:01 11/30/24 23:40 Temperature Pulse Rate 77 80 89 Respiratory Rate 11 L 15 818 H Blood Pressure 142/96 H Pulse Oximetry 100 100 100 Oxygen Delivery 11/30/24 23:45 12/01/24 00:00 12/01/24 00:34 Temperature Pulse Rate 92 98 98 Respiratory Rate 15 14 12 Blood Pressure Pulse Oximetry 100 100 100 Oxygen Delivery 12/01/24 00:45 12/01/24 01:00 12/01/24 01:22 Temperature Pulse Rate 91 91 100 Respiratory Rate 19 17 16 Blood Pressure Pulse Oximetry 100 99 100 Oxygen Delivery 12/01/24 01:30 12/01/24 01:45 12/01/24 01:55 Temperature Pulse Rate 103 H 97 96 Respiratory Rate 13 11 L 12 Blood Pressure Pulse Oximetry 99 Oxygen Delivery 12/01/24 03:19 12/01/24 04:14 12/01/24 05:23 Temperature 98.6 F Pulse Rate 94 94 95 Respiratory Rate 17 17 18 Blood Pressure 126/83 Pulse Oximetry 97 97 98 Oxygen Delivery Room Air Exam Const: General: no acute distress and uncomfortable Eyes: Sclera: sclerae normal Pupils: Equal, round and reactive pupils present Resp: Effort & Inspection: normal respiratory effort Auscultation: clear to auscultation bilaterally Cardio: Rate: regular rate Rhythm: regular rhythm GI: GI Palp: Yes Soft to palpation Auscultation: normal bowel sounds Skin: Other: Several stage 1-3 ulcerations to the LLE with surrounding erythema, warmth and tenderness. Wounds with malodorous green drainage. Extrem: Other: Doppler pulse dorsalis pedis and left popliteal. Feet warm to touch. Several stage 1-3 ulcerations to the LLE with surrounding erythema, warmth and tenderness. Wounds with malodorous green drainage. Psych: Other: Poor historian. Alert to self and at a hospital. Teary at times stating he misses his kids. H&P: Results Labs Labs: Short CBC 11/30/24 12/01/24 Range/Units 20:21 09:06 WBC 11.4 H 9.6 (4.5-10.0) K/mm3 Hgb 10.9 L 10.3 L (14.0-18.0) g/dL Hct 33.8 L 31.7 L (42.0-52.0) % Plt Count 261 225 (150-375) k/mm3 BMP 11/30/24 12/01/24 20:21 09:06 Sodium 139 140 Potassium 5.4 H 5.9 H Chloride 109 H 111 H Carbon Dioxide 17 L 23 BUN 37 H 31 H Creatinine 1.86 H 1.76 H Glucose 84 93 Calcium 9.1 8.9 Liver Function 11/30/24 12/01/24 Range/Units 20:21 09:06 Total Bilirubin 0.6 0.6 (0.2-1.3) mg/dL AST 25 26 (17-59) U/L ALT 19 18 (6-50) U/L Alkaline Phosphatase 100 95 (38-126) U/L Albumin 3.8 3.4 L (3.5-5.1) g/dL Assessment and Plan Assessment and plan (1) Peripheral artery disease: Code(s): I73.9 - Peripheral vascular disease, unspecified Status: Acute Assessment and Plan: * CTA Left LE: FINDINGS: There is no significant stenosis of the included portion of left superficial femoral artery. There is severe stenosis of the above-knee popliteal artery. There is no significant stenosis of the tibioperoneal trunk, anterior tibial artery, posterior tibial artery, or the peroneal artery. Again seen is an 8 mm radiopaque foreign body in the musculature of the foot. IMPRESSION: 1. 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 * Dr. Haresh Laura Vascular at [facility] on 11/29/24. Per the note patient will need a LAIF and an RAIF but she is unsure when he is supposed to be seen next. * Called and presented patient to their transfer center, waiting to hear back. * Patient is receiving Aspirin 81 mg PO daily and Atorvastatin 40 mg PO at bedtime. (2) Wound of left lower extremity: Code(s): S81.802A - Unspecified open wound, left lower leg, initial encounter Status: Acute Assessment and Plan: * Zosyn 3.375 gm IVPB q 6 and Vancomycin 1,500 mg IVPB daily. * Renally dose. * Wound care consult. * Santyl to wound. * Redness marked, not exceeding area marked. * Monitor pulses. * Pain control. (3) Seizure disorder: Code(s): G40.909 - Epilepsy, unspecified, not intractable, without status epilepticus Status: Acute Assessment and Plan: * Levetiracetam 1,000 mg PO q 12. * Depakote 500 mg PO daily. (4) Hyperkalemia: Code(s): E87.5 - Hyperkalemia Status: Inactive Assessment and Plan: * Potassium 5.9 * Patient given Lokelma 10 gram PO x1. * Repeat potassium 5.1. (5) MARIANGEL (acute kidney injury): Code(s): N17.9 - Acute kidney failure, unspecified Status: Acute Assessment and Plan: * Creatinine 1.86 on admission, last check, 1.83 * Received a liter of normal saline in the ER. Give additional NS @ 100 ml/hr x 500 ml. * Monitor labs. Quality VTE Prophylaxis VTE prophylaxis: pharmacologic ordered Hospitalist MIPS Advance Care Plan I have confirmed that the patient's Advanced Care Plan is present, code status is documented, or surrogate decision maker is listed in patient medical record.: Yes Medication Reconciliation I have utilized all available resources to obtain, update and review the patients current medications (includes all prescriptions, OTC, herbals, cannabis, and nutritional supplements).: Yes
[2024-12-01] MEDS: SODIUM ZIRCONIUM CYCLOSILICATE 10 GM POWD.PACK PO (11:10)
[2024-12-01] MEDS: hydroCHLOROthiazide 12.5 MG CAPSULE PO (11:11)
[2024-12-01] MEDS: lisinopriL 10 MG TABLET PO (11:11)
[2024-12-01] MEDS: VENLAFAXINE HCL XR 75 MG CAP.ER.24H 150 MG PO (14:10)
[2024-12-01] MEDS: DIVALPROEX SODIUM DR 250 MG TABEC 500 MG PO (14:10)
[2024-12-01] MEDS: METOPROLOL TARTRATE 50 MG TAB PO ×2 (14:10→20:44)
[2024-12-01] MEDS: CYANOCOBALAMIN 500 MCG TABLET PO (14:11)
[2024-12-01] MEDS: levETIRAcetam 500 MG TABLET 1000 MG PO ×2 (14:11→20:43)
[2024-12-01] MEDS: FAMOTIDINE 20 MG TABLET PO (14:11)
[2024-12-01] MEDS: SENNA/DOCUSATE SODIUM TABLET 1 TAB PO (14:11)
[2024-12-01] MEDS: GABAPENTIN 100 MG CAPSULE PO ×2 (14:11→16:28)
[2024-12-01] MEDS: LORazepam (*CRX) 0.5 MG TABLET BY MOUTH (14:11)
[2024-12-01] MEDS: ASPIRIN 81 MG CHEWABLE TABLET PO (14:11)
[2024-12-01] MEDS: ASCORBIC ACID 500 MG TABLET PO (14:11)
[2024-12-01] MEDS: busPIRone HCL 10 MG TABLET PO ×2 (14:11→16:29)
[2024-12-01 14:12] LABS: Anion Gap 9 mmol/L (4-12); Blood Urea Nitrogen 31 mg/dL (9-20); Calcium 8.6 mg/dL (8.4-10.2); Carbon Dioxide 21 mmol/L (22-30); Chloride 110 mmol/L (98-107); Estimated CRCL calculation 49 ml/min; Estimated Glomerular Filt Rate 40; Glucose 126 mg/dL (65-110); Potassium 5.1 mmol/L (3.4-5.0); Sodium 140 mmol/L (137-145)
[2024-12-01] MEDS: traMADol HCL (*CRX) 50 MG TABLET PO ×2 (14:12→20:43)
[2024-12-01] MEDS: QUEtiapine FUMARATE 100 MG TABLET PO ×2 (14:30→20:48)
[2024-12-01] MEDS: QUEtiapine FUMARATE 25 MG TABLET PO ×2 (14:30→20:48)
[2024-12-01] MEDS: COLLAGENASE OINT 30 GM TUBE 1 APPLIC TOPICAL (14:31)
[2024-12-01] MEDS: FLUoxetine HCL 20 MG CAPSULE 60 MG PO (14:31)
[2024-12-01] MEDS: SODIUM CHLORIDE 0.9% IV 500 ML 100 ML IV CONT (14:31)
--- NOTE | 2024-12-01 14:50 | PC.NURSE ---
I attempted to call Fawad from patient's contact list to consent for his medical records request from [facility]. There were no answers.
[2024-12-01] MEDS: ATORVASTATIN 40 MG TABLET PO (20:43)
[2024-12-01] MEDS: traZODone HCL 50 MG TABLET PO (20:43)
[2024-12-01] MEDS: HEPARIN SODIUM 5,000 UNITS/ML VIAL 5000 UNITS SUB-Q (20:43)
[2024-12-01] MEDS: ALPRAZolam (*CRX) 0.5 MG TABLET PO (20:44)
[2024-12-01] MEDS: TAMSULOSIN HCL 0.4 MG CAPSULE PO (20:44)
[2024-12-02] MEDS: PIPERACILLN/TAZ 3.375GM/NS50ML 3.375 GM/50 ML BAG IVPB ×4 (01:45→21:12)
[2024-12-02] MEDS: VANCOMYCIN 1,500 MG/NS 500 ML 1,500 MG/500 ML BAG 225 MG IVPB (02:33)
[2024-12-02 06:15] VITALS: BP 122/80; PULSE 83; RESP 16; TEMP 36.5; O2SAT 98
[2024-12-02 08:05] LABS: Basophils Percent Auto 0.6 % (0.2-1.2); Eosinophils Absolute Auto 0.2 K/mm3 (0-0.3); Eosinophils Percent Auto 3.3 % (0-4.4); Hematocrit 31.1 % (42.0-52.0); Hemoglobin 9.9 g/dL (14.0-18.0); Immature Granulocyte Absolute 0.09 K/mm3 (0.00-0.031); Immature Granulocyte Percent A 1.3 % (0-0.5); Lymphocytes Absolute Auto 1.47 K/mm3 (0.9-3.2); Lymphocytes Percent Auto 20.9 % (18.3-44.2); Mean Corpuscular HGB Conc 31.8 g/dl (32-36); Mean Corpuscular Hemoglobin 28.5 pg (26-34); Mean Corpuscular Volume 89.6 fl (80-100); Monocytes Absolute Auto 0.6 K/mm3 (0.1-0.6); Monocytes Percent Auto 8.2 % (2.6-8.5); Neutrophils Absolute Auto 4.6 K/mm3 (1.3-6.7); Neutrophils Percent Auto 65.7 % (45.5-73.1); Platelet Count Result 197 k/mm3 (150-375); Red Blood Count 3.47 M/mm3 (4.6-6.20); Red Cell Distribution Width 16.7 % (11.5-14.5)
[2024-12-02 08:26] LABS: Alanine Aminotransferase 16 U/L (6-50); Albumin Level 3.1 g/dL (3.5-5.1); Alkaline Phosphatase 90 U/L (38-126); Anion Gap 7 mmol/L (4-12); Aspartate Amino Transferase 24 U/L (17-59); Bilirubin,Total 0.5 mg/dL (0.2-1.3); Blood Urea Nitrogen 28 mg/dL (9-20); Calcium 8.6 mg/dL (8.4-10.2); Carbon Dioxide 25 mmol/L (22-30); Chloride 112 mmol/L (98-107); Estimated CRCL calculation 46 ml/min; Estimated Glomerular Filt Rate 36; Glucose 84 mg/dL (65-110); Magnesium 1.9 mg/dL (1.6-2.3); Potassium 5.1 mmol/L (3.4-5.0); Sodium 144 mmol/L (137-145)
[2024-12-02] MEDS: COLLAGENASE OINT 30 GM TUBE 1 APPLIC TOPICAL (09:30)
[2024-12-02] MEDS: FLUoxetine HCL 20 MG CAPSULE 60 MG PO (10:30)
[2024-12-02] MEDS: SODIUM ZIRCONIUM CYCLOSILICATE 10 GM POWD.PACK PO (10:36)
[2024-12-02] MEDS: CHOLECALCIFEROL 1,000 UNITS TABLET 2000 UNITS PO (10:37)
[2024-12-02] MEDS: VENLAFAXINE HCL XR 75 MG CAP.ER.24H 150 MG PO (10:38)
[2024-12-02] MEDS: HEPARIN SODIUM 5,000 UNITS/ML VIAL 5000 UNITS SUB-Q ×2 (10:38→21:13)
[2024-12-02] MEDS: ASPIRIN 81 MG CHEWABLE TABLET PO (10:38)
[2024-12-02] MEDS: SENNA/DOCUSATE SODIUM TABLET 1 TAB PO (10:39)
[2024-12-02] MEDS: DIVALPROEX SODIUM DR 250 MG TABEC 500 MG PO (10:39)
[2024-12-02] MEDS: levETIRAcetam 500 MG TABLET 1000 MG PO ×2 (10:39→21:13)
[2024-12-02] MEDS: CYANOCOBALAMIN 500 MCG TABLET PO (10:39)
[2024-12-02] MEDS: GABAPENTIN 100 MG CAPSULE PO ×3 (10:39→16:32)
[2024-12-02] MEDS: ASCORBIC ACID 500 MG TABLET PO (10:39)
[2024-12-02 10:40] VITALS: PULSE 80
[2024-12-02] MEDS: METOPROLOL TARTRATE 50 MG TAB PO ×2 (10:40→21:13)
[2024-12-02] MEDS: FAMOTIDINE 20 MG TABLET PO (10:40)
[2024-12-02] MEDS: lisinopriL 5 MG TABLET PO (10:41)
[2024-12-02] MEDS: busPIRone HCL 10 MG TABLET PO ×3 (10:41→16:32)
[2024-12-02] MEDS: QUEtiapine FUMARATE 100 MG TABLET PO ×3 (10:49→21:14)
[2024-12-02] MEDS: QUEtiapine FUMARATE 25 MG TABLET PO ×3 (10:49→21:14)
--- NOTE | 2024-12-02 11:12 | P.PNIM_ITS ---
Progress Note: A&P Assessment and Plan (1) Peripheral artery disease: Code(s): I73.9 - Peripheral vascular disease, unspecified Status: Acute Assessment and Plan: * CTA Left LE: FINDINGS: There is no significant stenosis of the included portion of left superficial femoral artery. There is severe stenosis of the above-knee popliteal artery. There is no significant stenosis of the tibioperoneal trunk, anterior tibial artery, posterior tibial artery, or the peroneal artery. Again seen is an 8 mm radiopaque foreign body in the musculature of the foot. IMPRESSION: 1. 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 * Dr. Haresh Laura Vascular at [facility] on 11/29/24. Per the note patient will need a LAIF and an RAIF but she is unsure when he is supposed to be seen next. * Called and presented patient to their transfer center, waiting to hear back. * Patient is receiving Aspirin 81 mg PO daily and Atorvastatin 40 mg PO at bedtime. (2) Wound of left lower extremity: Code(s): S81.802A - Unspecified open wound, left lower leg, initial encounter Status: Acute Assessment and Plan: * Zosyn 3.375 gm IVPB q 6 and Vancomycin 1,500 mg IVPB daily. * Renally dose. * Wound care consult. * Santyl to wound. * Redness improving and decreasing inside of area marked. * Monitor pulses. * Pain control. (3) Seizure disorder: Code(s): G40.909 - Epilepsy, unspecified, not intractable, without status epilepticus Status: Acute Assessment and Plan: * Levetiracetam 1,000 mg PO q 12. * Depakote 500 mg PO daily. (4) Hyperkalemia: Code(s): E87.5 - Hyperkalemia Status: Inactive Assessment and Plan: * Potassium 5.1, improved. (5) MARIANGEL (acute kidney injury): Code(s): N17.9 - Acute kidney failure, unspecified Status: Acute Assessment and Plan: * Creatinine 1.86 on admission, last check, 1.98 * Received a liter of normal saline in the ER. * Start NS @ 75 ml/hr * Encourage oral intake. * Monitor labs. Subjective Date/time seen: 12/02/24 11:12 Interval history: Patient denies pain at present. Patient reports that his leg feels a little better. Patient states that he has not seen his children or aunt recently. Patient reports that he makes his decisions. Patient is a poor historian with history of stroke. Patient is oriented to himself and place. No known POA paperwork located. Patient denies nausea, vomiting, headache, or dizziness. Review of Systems Review of Systems: All systems reviewed & are unremarkable except as noted in HPI and below Exam Const: General: comfortable and no acute distress Eyes: Sclera: sclerae normal Resp: Effort & Inspection: normal respiratory effort Auscultation: clear to auscultation bilaterally Cardio: Rate: regular rate Rhythm: regular rhythm GI: GI Palp: Yes Soft to palpation Auscultation: normal bowel sounds Skin: Other: Several stage 1-3 ulcerations to the LLE with surrounding erythema, warmth and tenderness. Redness improving and decreasing inside of area marked. Extrem: Other: 1+ palpable dorsalis pedis and left popl iteal. Bilateral feet warm to touch. Several stage 1-3 ulcerations to the LLE with surrounding erythema, warmth and tenderness. Redness improving and decreasing inside of area marked. Psych: Other: Teary at times when he talks about family, reports missing his family. A& Ox2. Memory impaired. Objective Data Vital Signs Vital Signs: Vital Signs - 24 hr 12/01/24 12:55 12/01/24 14:00 12/01/24 14:10 Temperature 97.1 F L Pulse Rate 96 80 Respiratory Rate 18 Blood Pressure 177/115 H Pulse Oximetry 96 99 Oxygen Delivery Room Air 12/01/24 20:00 12/01/24 20:44 12/01/24 21:26 Temperature 97.3 F L Pulse Rate 83 78 83 Respiratory Rate 16 16 Blood Pressure 119/81 Pulse Oximetry 98 98 Oxygen Delivery Room Air 12/02/24 06:15 12/02/24 10:40 Temperature 97.7 F Pulse Rate 83 80 Respiratory Rate 16 Blood Pressure 122/80 Pulse Oximetry 98 Oxygen Delivery Intake/Output Intake/Output: Intake & Output 11/29/24 11/30/24 12/01/24 12/02/24 23:59 23:59 23:59 23:59 Intake Total 2558 1100 Output Total 900 Balance 1658 1100 Meds/Results Medications: Active Medications Generic Name Dose Route Start Last Admin Trade Name Freq PRN Reason Stop Dose Admin Albuterol 2 puff 12/01/24 11:32 Albuterol Sulfate (*Sp) Aerosol 1 Puff INHALATION Q6H PRN Dyspnea Alprazolam 0.5 mg 12/01/24 11:39 12/01/24 20:44 Alprazolam (*Crx) 0.5 Mg Tablet PO 0.5 mg HS PRN Administration Anxiety Ascorbic Acid 500 mg 12/01/24 13:45 12/02/24 10:39 Ascorbic Acid 500 Mg Tablet PO 500 mg DAILY ALKA Administration Aspirin 81 mg 12/01/24 13:40 12/02/24 10:38 Aspirin 81 Mg Chewable Tablet PO 81 mg DAILY ALKA Administration Atorvastatin Calcium 40 mg 12/01/24 21:00 12/01/24 20:43 Atorvastatin 40 Mg Tablet PO 40 mg HS ALKA Administration Buspirone HCl 10 mg 12/01/24 13:00 12/02/24 10:45 Buspirone Hcl 10 Mg Tablet PO 10 mg TID ALKA Administration Collagenase 1 applic 12/01/24 13:30 12/01/24 14:31 Collagenase Oint 30 Gm Tube TOPICAL 1 applic QAM ALKA Administration Cyanocobalamin 500 mcg 12/01/24 13:40 12/02/24 10:39 Cyanocobalamin 500 Mcg Tablet PO 500 mcg DAILY ALKA Administration Divalproex Sodium 500 mg 12/01/24 13:50 12/02/24 10:[address] 250 Mg Tabec PO 500 mg DAILY ALKA Administration Famotidine 20 mg 12/01/24 13:40 12/02/24 10:40 Famotidine 20 Mg Tablet PO 20 mg DAILY ALKA Administration Fluoxetine HCl 60 mg 12/01/24 14:15 12/02/24 10:30 Fluoxetine Hcl 20 Mg Capsule PO 60 mg DAILY ALKA Administration Gabapentin 100 mg 12/01/24 13:00 12/02/24 10:39 Gabapentin 100 Mg Capsule PO 100 mg TID ALKA Administration Heparin Sodium (Porcine) 5,000 units 12/01/24 21:00 12/02/24 10:38 Heparin Sodium 5,000 Units/Ml Vial SUB-Q 5,000 units Q12HR ALKA Administration Piperacillin/Tazobactam/Dextrose 3.375 gm in 50 mls @ 100 mls/hr 12/01/24 08:00 12/02/24 02:15 Zosyn 3.375 Gm/Ns 50 Ml IVPB Infused Q6H ALKA Infusion Vancomycin HCl 1,500 mg in 500 mls @ 250 mls/hr 12/01/24 03:00 12/02/24 04:47 Vancomycin 1,500 Mg/Ns 500 Ml IVPB Infused Q24H ALKA Infusion Levetiracetam 1,000 mg 12/01/24 13:55 12/02/24 10:39 Levetiracetam 500 Mg Tablet PO 1,000 mg Q12HR ALKA Administration Lisinopril 5 mg 12/02/24 09:00 12/02/24 10:41 Lisinopril 5 Mg Tablet PO 5 mg DAILY ALKA Administration Lorazepam 0.5 mg 12/01/24 13:11 12/01/24 14:11 Lorazepam (*Crx) 0.5 Mg Tablet BY MOUTH 0.5 mg DAILY PRN Administration anxiety Metoprolol Tartrate 50 mg 12/01/24 13:55 12/02/24 10:40 Metoprolol Tartrate 50 Mg Tab PO 50 mg Q12HR ALKA Administration Quetiapine Fumarate 25 mg 12/01/24 13:00 12/02/24 10:49 Quetiapine Fumarate 25 Mg Tablet PO 25 mg 0900,1300,2100 ALKA Administration Quetiapine Fumarate 100 mg 12/01/24 13:00 12/02/24 10:49 Quetiapine Fumarate 100 Mg Tablet PO 100 mg 0900,1300,2100 ALKA Administration Senna/Docusate Sodium 1 tab 12/01/24 13:40 12/02/24 10:39 Senna/Docusate Sodium Tablet PO 1 tab DAILY ALKA Administration Sodium Zirconium Cyclosilicate 10 gm 12/01/24 10:00 12/02/24 10:36 Sodium Zirconium Cyclosilicate 10 Gm Powd.Pack PO 10 gm DAILY@1000 ALKA Administration Tamsulosin HCl 0.4 mg 12/01/24 21:00 12/01/24 20:44 Tamsulosin Hcl 0.4 Mg Capsule PO 0.4 mg HS ALKA Administration Tramadol HCl 50 mg 12/01/24 13:11 12/01/24 20:43 Tramadol Hcl (*Crx) 50 Mg Tablet PO 50 mg BID PRN Administration pain Trazodone HCl 50 mg 12/01/24 21:00 12/01/24 20:43 Trazodone Hcl 50 Mg Tablet PO 50 mg HS ALKA Administration Venlafaxine HCl 150 mg 12/01/24 13:45 12/02/24 10:38 Venlafaxine Hcl Xr 75 Mg Cap.Er.24h PO 150 mg DAILY ALKA Administration Vitamin D 2,000 units 12/02/24 09:00 12/02/24 10:37 Cholecalciferol 1,000 Units Tablet PO 2,000 units DAILY ALKA Administration Radiology Results: ITS Impressions Tibia/Fibula X-Ray 11/30/24 16:48 IMPRESSION: 1. No evidence of osteomyelitis. Lower Extremity CTA 11/30/24 23:06 IMPRESSION: 1. 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 Labs Labs: Laboratory Results - last 24 hr 12/01/24 12/02/24 13:58 07:12 WBC 7.0 RBC 3.47 L Hgb 9.9 L Hct 31.1 L MCV 89.6 MCH 28.5 MCHC 31.8 L RDW 16.7 H Plt Count 197 MPV 10.0 Immature Gran % (Auto) 1.3 H Neut % (Auto) 65.7 Lymph % (Auto) 20.9 Desha % (Auto) 8.2 Eos % (Auto) 3.3 Baso % (Auto) 0.6 Lymph # (Auto) 1.47 Desha # (Auto) 0.6 Eos # (Auto) 0.2 Baso # (Auto) 0.0 Abs Immat Gran (auto) 0.09 H Absolute Neuts (auto) 4.6 Absolute Nucleated RBC 0.000 Nucleated RBC % 0.0 Sodium 140 144 Potassium 5.1 H 5.1 H Chloride 110 H 112 H Carbon Dioxide 21 L 25 Anion Gap 9 7 BUN 31 H 28 H Creatinine 1.83 H 1.98 H Estim Creat Clear Calc 49 46 Estimated GFR 40 L 36 L Glucose 126 H 84 Calcium 8.6 8.6 Magnesium 1.9 Total Bilirubin 0.5 AST 24 ALT 16 Alkaline Phosphatase 90 Total Protein 7.0 Albumin 3.1 L Quality VTE Prophylaxis VTE prophylaxis: pharmacologic ordered
[2024-12-02 14:00] VITALS: BP 145/99; PULSE 76; RESP 14; TEMP 36.3; O2SAT 99
[2024-12-02] MEDS: SODIUM CHLORIDE 0.9% IV 1,000 ML 75 ML IV CONT (14:11)
[2024-12-02 20:00] VITALS: PULSE 80; RESP 18; O2SAT 98
[2024-12-02 21:13] VITALS: PULSE 80
[2024-12-02] MEDS: LORazepam (*CRX) 0.5 MG TABLET BY MOUTH (21:13)
[2024-12-02] MEDS: ATORVASTATIN 40 MG TABLET PO (21:13)
[2024-12-02] MEDS: traMADol HCL (*CRX) 50 MG TABLET PO (21:13)
[2024-12-02] MEDS: TAMSULOSIN HCL 0.4 MG CAPSULE PO (21:14)
[2024-12-02] MEDS: traZODone HCL 50 MG TABLET PO (21:14)
[2024-12-02] MEDS: ALPRAZolam (*CRX) 0.5 MG TABLET PO (21:14)
[2024-12-02 22:00] VITALS: BP 147/88; PULSE 80; RESP 18; TEMP 36.9; O2SAT 98
[2024-12-03] MEDS: PIPERACILLN/TAZ 3.375GM/NS50ML 3.375 GM/50 ML BAG IVPB ×4 (02:47→21:04)
[2024-12-03] MEDS: VANCOMYCIN 1,500 MG/NS 500 ML 1,500 MG/500 ML BAG 125 MG IVPB (03:48)
[2024-12-03 06:00] VITALS: BP 135/84; PULSE 78; RESP 18; TEMP 37.2; O2SAT 99
[2024-12-03 06:46] LABS: Basophils Absolute Auto 0.1 K/mm3 (0.0-0.1); Basophils Percent Auto 0.8 % (0.2-1.2); Eosinophils Absolute Auto 0.7 K/mm3 (0-0.3); Eosinophils Percent Auto 10.3 % (0-4.4); Hematocrit 28.7 % (42.0-52.0); Hemoglobin 9.1 g/dL (14.0-18.0); Immature Granulocyte Absolute 0.07 K/mm3 (0.00-0.031); Lymphocytes Absolute Auto 1.83 K/mm3 (0.9-3.2); Lymphocytes Percent Auto 25.9 % (18.3-44.2); Mean Corpuscular HGB Conc 31.7 g/dl (32-36); Mean Corpuscular Hemoglobin 28.4 pg (26-34); Mean Corpuscular Volume 89.7 fl (80-100); Mean Platelet Volume 9.7 fl (7.4-10.4); Monocytes Absolute Auto 0.6 K/mm3 (0.1-0.6); Monocytes Percent Auto 8.1 % (2.6-8.5); Neutrophils Absolute Auto 3.8 K/mm3 (1.3-6.7); Neutrophils Percent Auto 53.9 % (45.5-73.1); Platelet Count Result 182 k/mm3 (150-375); Red Cell Distribution Width 16.1 % (11.5-14.5); White Blood Count 7.1 K/mm3 (4.5-10.0)
[2024-12-03 06:50] LABS: Alanine Aminotransferase 17 U/L (6-50); Alkaline Phosphatase 83 U/L (38-126); Anion Gap 9 mmol/L (4-12); Aspartate Amino Transferase 28 U/L (17-59); Bilirubin,Total 0.5 mg/dL (0.2-1.3); Blood Urea Nitrogen 23 mg/dL (9-20); Calcium 8.2 mg/dL (8.4-10.2); Carbon Dioxide 21 mmol/L (22-30); Chloride 113 mmol/L (98-107); Estimated CRCL calculation 48 ml/min; Estimated Glomerular Filt Rate 39; Glucose 88 mg/dL (65-110); Magnesium 1.9 mg/dL (1.6-2.3); Potassium 4.1 mmol/L (3.4-5.0); Sodium 143 mmol/L (137-145)
--- NOTE | 2024-12-03 09:26 | WPDCDIQUERY2 ---
CDI Query Clarification Request Cellulitis has been documented by ER provider, but not in any progress notes. Clinical impression: Doppler pulse dorsalis pedis and left popliteal. Feet warm to touch. Several stage 1-3 ulcerations to the LLE with surrounding erythema, warmth and tenderness. Wounds with malodorous green drainage. Cellulitis Qualifiers: Site of cellulitis: extremity Site of cellulitis of extremity: lower extremity Laterality: left Qualified Code(s): L03.116 - Cellulitis of left lower limb Infected ulcer of skin Qualifiers: Non-pressure ulcer stage: unspecified non-pressure ulcer stage Qualified Code(s): L98.499 - Non-pressure chronic ulcer of skin of other sites with unspecified severity Please clarify if cellulitis has been ruled in or ruled out on admission.
--- NOTE | 2024-12-03 09:39 | P.PNIM_ITS ---
Progress Note: A&P Assessment and Plan (1) Peripheral artery disease: Code(s): I73.9 - Peripheral vascular disease, unspecified Status: Acute Assessment and Plan: * CTA Left LE: FINDINGS: There is no significant stenosis of the included portion of left superficial femoral artery. There is severe stenosis of the above-knee popliteal artery. There is no significant stenosis of the tibioperoneal trunk, anterior tibial artery, posterior tibial artery, or the peroneal artery. Again seen is an 8 mm radiopaque foreign body in the musculature of the foot. IMPRESSION: 1. 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 * Dr. Haresh Laura Vascular at [facility] on 11/29/24. Per the note patient will need a LAIF and an RAIF but she is unsure when he is supposed to be seen next. * Called and presented patient to their transfer center, waiting to hear back. * Patient is receiving Aspirin 81 mg PO daily and Atorvastatin 40 mg PO at bedtime. * Called Dr. Haresh Laura office today 12/03/24, awaiting a call back from Dr. Laura to discuss patient and plan. (2) Wound of left lower extremity: Code(s): S81.802A - Unspecified open wound, left lower leg, initial encounter Status: Acute Assessment and Plan: * Zosyn 3.375 gm IVPB q 6 and Vancomycin 1,500 mg IVPB daily. * Renally dose. * Wound care consult. * LLE leg wound culture grew pseudomonas aeruginosa and staphylococcus aureus. * Santyl to wound. * Redness improving and decreasing inside of area marked. * Monitor pulses. * Pain control. (3) Seizure disorder: Code(s): G40.909 - Epilepsy, unspecified, not intractable, without status epilepticus Status: Acute Assessment and Plan: * Levetiracetam 1,000 mg PO q 12. * Depakote 500 mg PO daily. (4) Hyperkalemia: Code(s): E87.5 - Hyperkalemia Status: Inactive Assessment and Plan: * Potassium 4.1, improved. (5) MARIANGEL (acute kidney injury): Code(s): N17.9 - Acute kidney failure, unspecified Status: Acute Assessment and Plan: * Creatinine 1.86 on admission, last check, 1.87. * Received a liter of normal saline in the ER. * Start NS @ 75 ml/hr * Encourage oral intake. * Monitor labs. Subjective Date/time seen: 12/03/24 09:39 Interval history: Patient reports pain in left leg is a 7 , constant, and burning. Patient denies nausea, vomiting, headache, or dizziness. Review of Systems Review of Systems: All systems reviewed & are unremarkable except as noted in HPI and below Exam Const: General: no acute distress and uncomfortable Resp: Effort & Inspection: normal respiratory effort Auscultation: clear to auscultation bilaterally Cardio: Rate: regular rate Rhythm: regular rhythm GI: GI Palp: Yes Soft to palpation Auscultation: normal bowel sounds Skin: Other: Several stage 1-3 ulcerations to the LLE with surrounding erythema, warmth and tenderness. Redness improving and decreasing inside of area marked. Neuro: Speech: normal speech Extrem: Other: 1+ palpable dorsalis pedis and left popl iteal. Bilateral feet warm to touch. Several stage 1-3 ulcerations to the LLE with surrounding erythema, warmth and tenderness. Redness improving and decreasing inside of area marked. Psych: Mental Status: mental status grossly normal Affect: normal affect Objective Data Vital Signs Vital Signs: Vital Signs - 24 hr 12/02/24 10:40 12/02/24 14:00 12/02/24 20:00 Temperature 97.4 F L Pulse Rate 80 76 80 Respiratory Rate 14 18 Blood Pressure 145/99 H Pulse Oximetry 99 98 Oxygen Delivery Room Air 12/02/24 21:13 12/02/24 22:00 12/03/24 06:00 Temperature 98.5 F 98.9 F Pulse Rate 80 80 78 Respiratory Rate 18 18 Blood Pressure 147/88 H 135/84 Pulse Oximetry 98 99 Oxygen Delivery Intake/Output Intake/Output: Intake & Output 11/30/24 12/01/24 12/02/24 12/03/24 23:59 23:59 23:59 23:59 Intake Total 2558 1490 290 Output Total 900 Balance 1658 1490 290 Meds/Results Medications: Active Medications Generic Name Dose Route Start Last Admin Trade Name Freq PRN Reason Stop Dose Admin Albuterol 2 puff 12/01/24 11:32 Albuterol Sulfate (*Sp) Aerosol 1 Puff INHALATION Q6H PRN Dyspnea Alprazolam 0.5 mg 12/01/24 11:39 12/02/24 21:14 Alprazolam (*Crx) 0.5 Mg Tablet PO 0.5 mg HS PRN Administration Anxiety Ascorbic Acid 500 mg 12/01/24 13:45 12/02/24 10:39 Ascorbic Acid 500 Mg Tablet PO 500 mg DAILY ALKA Administration Aspirin 81 mg 12/01/24 13:40 12/02/24 10:38 Aspirin 81 Mg Chewable Tablet PO 81 mg DAILY ALKA Administration Atorvastatin Calcium 40 mg 12/01/24 21:00 12/02/24 21:13 Atorvastatin 40 Mg Tablet PO 40 mg HS ALKA Administration Buspirone HCl 10 mg 12/01/24 13:00 12/02/24 16:32 Buspirone Hcl 10 Mg Tablet PO 10 mg TID ALKA Administration Collagenase 1 applic 12/01/24 13:30 12/02/24 09:30 Collagenase Oint 30 Gm Tube TOPICAL 1 applic QAM ALKA Administration Cyanocobalamin 500 mcg 12/01/24 13:40 12/02/24 10:39 Cyanocobalamin 500 Mcg Tablet PO 500 mcg DAILY ALKA Administration Divalproex Sodium 500 mg 12/01/24 13:50 12/02/24 10:[address] 250 Mg Tabec PO 500 mg DAILY ALKA Administration Famotidine 20 mg 12/01/24 13:40 12/02/24 10:40 Famotidine 20 Mg Tablet PO 20 mg DAILY ALKA Administration Fluoxetine HCl 60 mg 12/01/24 14:15 12/02/24 10:30 Fluoxetine Hcl 20 Mg Capsule PO 60 mg DAILY ALKA Administration Gabapentin 100 mg 12/01/24 13:00 12/02/24 16:32 Gabapentin 100 Mg Capsule PO 100 mg TID ALKA Administration Heparin Sodium (Porcine) 5,000 units 12/01/24 21:00 12/02/24 21:13 Heparin Sodium 5,000 Units/Ml Vial SUB-Q 5,000 units Q12HR ALKA Administration Piperacillin/Tazobactam/Dextrose 3.375 gm in 50 mls @ 100 mls/hr 12/01/24 08:00 12/03/24 03:17 Zosyn 3.375 Gm/Ns 50 Ml IVPB Infused Q6H ALKA Infusion Vancomycin HCl 1,500 mg in 500 mls @ 250 mls/hr 12/01/24 03:00 12/03/24 03:48 Vancomycin 1,500 Mg/Ns 500 Ml IVPB 125 mls/hr Q24H ALKA Administration Sodium Chloride 1,000 mls @ 75 mls/hr 12/02/24 13:55 12/02/24 14:11 Normal Saline Iv IV CONT 75 mls/hr .[id number] ALKA Administration Levetiracetam 1,000 mg 12/01/24 13:55 12/02/24 21:13 Levetiracetam 500 Mg Tablet PO 1,000 mg Q12HR ALKA Administration Lisinopril 5 mg 12/02/24 09:00 12/02/24 10:41 Lisinopril 5 Mg Tablet PO 5 mg DAILY ALKA Administration Lorazepam 0.5 mg 12/01/24 13:11 12/02/24 21:13 Lorazepam (*Crx) 0.5 Mg Tablet BY MOUTH 0.5 mg DAILY PRN Administration anxiety Metoprolol Tartrate 50 mg 12/01/24 13:55 12/02/24 21:13 Metoprolol Tartrate 50 Mg Tab PO 50 mg Q12HR ALKA Administration Quetiapine Fumarate 25 mg 12/01/24 13:00 12/02/24 21:14 Quetiapine Fumarate 25 Mg Tablet PO 25 mg 0900,1300,2100 ALKA Administration Quetiapine Fumarate 100 mg 12/01/24 13:00 12/02/24 21:14 Quetiapine Fumarate 100 Mg Tablet PO 100 mg 0900,1300,2100 ALKA Administration Senna/Docusate Sodium 1 tab 12/01/24 13:40 12/02/24 10:39 Senna/Docusate Sodium Tablet PO 1 tab DAILY ALKA Administration Sodium Zirconium Cyclosilicate 10 gm 12/01/24 10:00 12/02/24 10:36 Sodium Zirconium Cyclosilicate 10 Gm Powd.Pack PO 10 gm DAILY@1000 ALKA Administration Tamsulosin HCl 0.4 mg 12/01/24 21:00 12/02/24 21:14 Tamsulosin Hcl 0.4 Mg Capsule PO 0.4 mg HS ALKA Administration Tramadol HCl 50 mg 12/01/24 13:11 12/02/24 21:13 Tramadol Hcl (*Crx) 50 Mg Tablet PO 50 mg BID PRN Administration pain Trazodone HCl 50 mg 12/01/24 21:00 12/02/24 21:14 Trazodone Hcl 50 Mg Tablet PO 50 mg HS ALKA Administration Venlafaxine HCl 150 mg 12/01/24 13:45 12/02/24 10:38 Venlafaxine Hcl Xr 75 Mg Cap.Er.24h PO 150 mg DAILY ALKA Administration Vitamin D 2,000 units 12/02/24 09:00 12/02/24 10:37 Cholecalciferol 1,000 Units Tablet PO 2,000 units DAILY ALKA Administration Radiology Results: ITS Impressions Tibia/Fibula X-Ray 11/30/24 16:48 IMPRESSION: 1. No evidence of osteomyelitis. Lower Extremity CTA 11/30/24 23:06 IMPRESSION: 1. 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 Labs Labs: Laboratory Results - last 24 hr 12/03/24 06:19 WBC 7.1 RBC 3.20 L Hgb 9.1 L Hct 28.7 L MCV 89.7 MCH 28.4 MCHC 31.7 L RDW 16.1 H Plt Count 182 MPV 9.7 Immature Gran % (Auto) 1.0 H Neut % (Auto) 53.9 Lymph % (Auto) 25.9 [place] % (Auto) 8.1 Eos % (Auto) 10.3 H Baso % (Auto) 0.8 Lymph # (Auto) 1.83 [place] # (Auto) 0.6 Eos # (Auto) 0.7 H Baso # (Auto) 0.1 Abs Immat Gran (auto) 0.07 H Absolute Neuts (auto) 3.8 Absolute Nucleated RBC 0.000 Nucleated RBC % 0.0 Sodium 143 Potassium 4.1 Chloride 113 H Carbon Dioxide 21 L Anion Gap 9 BUN 23 H Creatinine 1.87 H Estim Creat Clear Calc 48 Estimated GFR 39 L Glucose 88 Calcium 8.2 L Magnesium 1.9 Total Bilirubin 0.5 AST 28 ALT 17 Alkaline Phosphatase 83 Total Protein 7.0 Albumin 3.0 L Quality VTE Prophylaxis VTE prophylaxis: pharmacologic ordered
[2024-12-03] MEDS: SODIUM CHLORIDE 0.9% IV 1,000 ML 75 ML IV CONT (10:01)
[2024-12-03] MEDS: FLUoxetine HCL 20 MG CAPSULE 60 MG PO (10:09)
[2024-12-03] MEDS: SODIUM ZIRCONIUM CYCLOSILICATE 10 GM POWD.PACK PO (10:09)
[2024-12-03] MEDS: ASCORBIC ACID 500 MG TABLET PO (10:10)
[2024-12-03] MEDS: levETIRAcetam 500 MG TABLET 1000 MG PO ×2 (10:10→21:05)
[2024-12-03] MEDS: CHOLECALCIFEROL 1,000 UNITS TABLET 2000 UNITS PO (10:10)
[2024-12-03] MEDS: DIVALPROEX SODIUM DR 250 MG TABEC 500 MG PO (10:11)
[2024-12-03] MEDS: VENLAFAXINE HCL XR 75 MG CAP.ER.24H 150 MG PO (10:11)
[2024-12-03] MEDS: FAMOTIDINE 20 MG TABLET PO (10:11)
[2024-12-03] MEDS: busPIRone HCL 10 MG TABLET PO ×3 (10:11→16:51)
[2024-12-03] MEDS: CYANOCOBALAMIN 500 MCG TABLET PO (10:11)
[2024-12-03] MEDS: lisinopriL 5 MG TABLET PO (10:11)
[2024-12-03] MEDS: SENNA/DOCUSATE SODIUM TABLET 1 TAB PO (10:11)
[2024-12-03] MEDS: HEPARIN SODIUM 5,000 UNITS/ML VIAL 5000 UNITS SUB-Q ×2 (10:11→21:04)
[2024-12-03 10:12] VITALS: PULSE 86
[2024-12-03] MEDS: ASPIRIN 81 MG CHEWABLE TABLET PO (10:12)
[2024-12-03] MEDS: METOPROLOL TARTRATE 50 MG TAB PO ×2 (10:12→21:05)
[2024-12-03] MEDS: GABAPENTIN 100 MG CAPSULE PO ×3 (10:12→16:51)
[2024-12-03] MEDS: COLLAGENASE OINT 30 GM TUBE 1 APPLIC TOPICAL (10:14)
[2024-12-03] MEDS: QUEtiapine FUMARATE 25 MG TABLET PO ×2 (10:21→13:31)
[2024-12-03] MEDS: QUEtiapine FUMARATE 100 MG TABLET PO ×2 (10:22→13:31)
[2024-12-03] MEDS: traMADol HCL (*CRX) 50 MG TABLET PO ×2 (11:03→21:05)
[2024-12-03 14:00] VITALS: BP 144/87; PULSE 79; RESP 18; TEMP 36.1; O2SAT 99
[2024-12-03 20:00] VITALS: PULSE 77; RESP 20; O2SAT 99
[2024-12-03 21:05] VITALS: PULSE 72
[2024-12-03] MEDS: TAMSULOSIN HCL 0.4 MG CAPSULE PO (21:05)
[2024-12-03] MEDS: ALPRAZolam (*CRX) 0.5 MG TABLET PO (21:05)
[2024-12-03] MEDS: LORazepam (*CRX) 0.5 MG TABLET BY MOUTH (21:05)
[2024-12-03] MEDS: ATORVASTATIN 40 MG TABLET PO (21:05)
[2024-12-03] MEDS: traZODone HCL 50 MG TABLET PO (21:05)
[2024-12-03 21:31] VITALS: BP 150/90; PULSE 77; RESP 20; TEMP 36.4; O2SAT 99
[2024-12-04] MEDS: PIPERACILLN/TAZ 3.375GM/NS50ML 3.375 GM/50 ML BAG IVPB ×4 (02:00→20:19)
[2024-12-04] MEDS: SODIUM CHLORIDE 0.9% IV 1,000 ML 75 ML IV CONT (02:00)
[2024-12-04 02:15] LABS: Basophils Absolute Auto 0.1 K/mm3 (0.0-0.1); Basophils Percent Auto 0.6 % (0.2-1.2); Eosinophils Absolute Auto 0.7 K/mm3 (0-0.3); Eosinophils Percent Auto 9.3 % (0-4.4); Hematocrit 29.3 % (42.0-52.0); Hemoglobin 9.5 g/dL (14.0-18.0); Immature Granulocyte Absolute 0.05 K/mm3 (0.00-0.031); Immature Granulocyte Percent A 0.6 % (0-0.5); Lymphocytes Absolute Auto 1.97 K/mm3 (0.9-3.2); Lymphocytes Percent Auto 24.8 % (18.3-44.2); Mean Corpuscular HGB Conc 32.4 g/dl (32-36); Mean Corpuscular Hemoglobin 28.3 pg (26-34); Mean Corpuscular Volume 87.2 fl (80-100); Mean Platelet Volume 9.4 fl (7.4-10.4); Monocytes Absolute Auto 0.6 K/mm3 (0.1-0.6); Monocytes Percent Auto 7.4 % (2.6-8.5); Neutrophils Absolute Auto 4.6 K/mm3 (1.3-6.7); Neutrophils Percent Auto 57.3 % (45.5-73.1); Platelet Count Result 184 k/mm3 (150-375); Red Blood Count 3.36 M/mm3 (4.6-6.20); Red Cell Distribution Width 16.1 % (11.5-14.5)
[2024-12-04 02:37] LABS: Alanine Aminotransferase 18 U/L (6-50); Albumin Level 3.1 g/dL (3.5-5.1); Alkaline Phosphatase 85 U/L (38-126); Anion Gap 10 mmol/L (4-12); Aspartate Amino Transferase 26 U/L (17-59); Bilirubin,Total 0.5 mg/dL (0.2-1.3); Blood Urea Nitrogen 20 mg/dL (9-20); Calcium 8.1 mg/dL (8.4-10.2); Carbon Dioxide 20 mmol/L (22-30); Chloride 113 mmol/L (98-107); Estimated CRCL calculation 51 ml/min; Estimated Glomerular Filt Rate 41; Glucose 86 mg/dL (65-110); Magnesium 1.7 mg/dL (1.6-2.3); Potassium 4.1 mmol/L (3.4-5.0); Sodium 143 mmol/L (137-145)
[2024-12-04 02:41] LABS: Vancomycin Trough 11.8 ug/mL (10.0-20.0)
[2024-12-04] MEDS: QUEtiapine FUMARATE 25 MG TABLET PO ×4 (03:16→20:23)
[2024-12-04] MEDS: QUEtiapine FUMARATE 100 MG TABLET PO ×4 (03:17→20:23)
[2024-12-04] MEDS: VANCOMYCIN 1,500 MG/NS 500 ML 1,500 MG/500 ML BAG 125 MG IVPB (03:17)
[2024-12-04 05:57] VITALS: BP 120/82; PULSE 71; RESP 20; TEMP 36.4; O2SAT 96
[2024-12-04] MEDS: HEPARIN SODIUM 5,000 UNITS/ML VIAL 5000 UNITS SUB-Q ×2 (09:09→20:19)
[2024-12-04] MEDS: DIVALPROEX SODIUM DR 250 MG TABEC 500 MG PO (09:09)
[2024-12-04] MEDS: SODIUM ZIRCONIUM CYCLOSILICATE 10 GM POWD.PACK PO (09:09)
[2024-12-04] MEDS: levETIRAcetam 500 MG TABLET 1000 MG PO ×2 (09:09→20:19)
[2024-12-04] MEDS: CHOLECALCIFEROL 1,000 UNITS TABLET 2000 UNITS PO (09:09)
[2024-12-04] MEDS: FLUoxetine HCL 20 MG CAPSULE 60 MG PO (09:10)
[2024-12-04] MEDS: CYANOCOBALAMIN 500 MCG TABLET PO (09:10)
[2024-12-04] MEDS: SENNA/DOCUSATE SODIUM TABLET 1 TAB PO (09:10)
[2024-12-04] MEDS: ASCORBIC ACID 500 MG TABLET PO (09:10)
[2024-12-04] MEDS: ASPIRIN 81 MG CHEWABLE TABLET PO (09:10)
[2024-12-04] MEDS: busPIRone HCL 10 MG TABLET PO ×3 (09:10→17:08)
[2024-12-04] MEDS: lisinopriL 5 MG TABLET PO (09:10)
[2024-12-04] MEDS: METOPROLOL TARTRATE 50 MG TAB PO ×2 (09:10→20:18)
[2024-12-04] MEDS: GABAPENTIN 100 MG CAPSULE PO ×3 (09:10→17:08)
[2024-12-04] MEDS: FAMOTIDINE 20 MG TABLET PO (09:10)
[2024-12-04] MEDS: VENLAFAXINE HCL XR 75 MG CAP.ER.24H 150 MG PO (09:10)
--- NOTE | 2024-12-04 11:22 | P.PNIM_ITS ---
Progress Note: A&P Assessment and Plan (1) Peripheral artery disease: Code(s): I73.9 - Peripheral vascular disease, unspecified Status: Acute Assessment and Plan: * CTA Left LE: FINDINGS: There is no significant stenosis of the included portion of left superficial femoral artery. There is severe stenosis of the above-knee popliteal artery. There is no significant stenosis of the tibioperoneal trunk, anterior tibial artery, posterior tibial artery, or the peroneal artery. Again seen is an 8 mm radiopaque foreign body in the musculature of the foot. IMPRESSION: 1. 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 * Dr. Haresh Laura Vascular at [facility] on 11/29/24. Per the note patient will need a LAIF and an RAIF but she is unsure when he is supposed to be seen next. * Called and presented patient to their transfer center, waiting to hear back. * Patient is receiving Aspirin 81 mg PO daily and Atorvastatin 40 mg PO at bedtime. * Called Dr. Haresh Laura office today 12/03/24, awaiting a call back from Dr. Laura to discuss patient and plan. Patient will need scheduled for further testing per Dr. Laura office. (2) Wound of left lower extremity: Code(s): S81.802A - Unspecified open wound, left lower leg, initial encounter Status: Acute Assessment and Plan: * Zosyn 3.375 gm IVPB q 6. * Vancomycin 1,500 mg IVPB daily stopped on 12/04/24. * Renally dose. * Wound care consult. * LLE leg wound culture grew pseudomonas aeruginosa and staphylococcus aureus. * Santyl to wound. * Redness improving and decreasing inside of area marked. * Monitor pulses. * Pain control. * improving. (3) Seizure disorder: Code(s): G40.909 - Epilepsy, unspecified, not intractable, without status epilepticus Status: Acute Assessment and Plan: * Levetiracetam 1,000 mg PO q 12. * Depakote 500 mg PO daily. (4) Hyperkalemia: Code(s): E87.5 - Hyperkalemia Status: Inactive Assessment and Plan: * Potassium 4.1, improved. (5) MARIANGEL (acute kidney injury): Code(s): N17.9 - Acute kidney failure, unspecified Status: Acute Assessment and Plan: * Creatinine 1.86 on admission, last check, 1.78. * Received a liter of normal saline in the ER. * Start NS @ 75 ml/hr * Encourage oral intake. * Monitor labs. Subjective Date/time seen: 12/04/24 11:22 Interval history: Patient denies pain, nausea, vomiting, shortness of breath, headache, or dizziness. Review of Systems Review of Systems: All systems reviewed & are unremarkable except as noted in HPI and below Exam Const: General: comfortable and no acute distress Resp: Effort & Inspection: normal respiratory effort Auscultation: clear to auscultation bilaterally Cardio: Rate: regular rate Rhythm: regular rhythm GI: GI Palp: Yes Soft to palpation Auscultation: normal bowel sounds Skin: Other: 1+ palpable dorsalis pedis and left popl iteal. Bilateral feet warm to touch. Several stage 1-3 ulcerations to the LLE with surrounding erythema, warmth and tenderness. Redness improving and decreasing inside of area marked. Malodorous creamy green drainage. Neuro: Speech: normal speech Extrem: General: no pedal edema Psych: Mental Status: mental status grossly normal Affect: normal affect Objective Data Vital Signs Vital Signs: Vital Signs - 24 hr 12/03/24 14:00 12/03/24 20:00 12/03/24 21:05 Temperature 96.9 F L Pulse Rate 79 77 72 Respiratory Rate 18 20 Blood Pressure 144/87 H Pulse Oximetry 99 99 Oxygen Delivery Room Air 12/03/24 21:31 12/04/24 05:57 Temperature 97.5 F L 97.6 F Pulse Rate 77 71 Respiratory Rate 20 20 Blood Pressure 150/90 H 120/82 Pulse Oximetry 99 96 Oxygen Delivery Intake/Output Intake/Output: Intake & Output 12/01/24 12/02/24 12/03/24 12/04/24 23:59 23:59 23:59 23:59 Intake Total 2558 1490 3420 690 Output Total 900 Balance 1658 1490 3420 690 Meds/Results Medications: Active Medications Generic Name Dose Route Start Last Admin Trade Name Freq PRN Reason Stop Dose Admin Albuterol 2 puff 12/01/24 11:32 Albuterol Sulfate (*Sp) Aerosol 1 Puff INHALATION Q6H PRN Dyspnea Alprazolam 0.5 mg 12/01/24 11:39 12/03/24 21:05 Alprazolam (*Crx) 0.5 Mg Tablet PO 0.5 mg HS PRN Administration Anxiety Ascorbic Acid 500 mg 12/01/24 13:45 12/04/24 09:10 Ascorbic Acid 500 Mg Tablet PO 500 mg DAILY ALKA Administration Aspirin 81 mg 12/01/24 13:40 12/04/24 09:10 Aspirin 81 Mg Chewable Tablet PO 81 mg DAILY ALKA Administration Atorvastatin Calcium 40 mg 12/01/24 21:00 12/03/24 21:05 Atorvastatin 40 Mg Tablet PO 40 mg HS ALKA Administration Buspirone HCl 10 mg 12/01/24 13:00 12/04/24 09:10 Buspirone Hcl 10 Mg Tablet PO 10 mg TID ALKA Administration Collagenase 1 applic 12/01/24 13:30 12/03/24 10:14 Collagenase Oint 30 Gm Tube TOPICAL 1 applic QAM ALKA Administration Cyanocobalamin 500 mcg 12/01/24 13:40 12/04/24 09:10 Cyanocobalamin 500 Mcg Tablet PO 500 mcg DAILY ALKA Administration Divalproex Sodium 500 mg 12/01/24 13:50 12/04/24 09:[address] 250 Mg Tabec PO 500 mg DAILY ALKA Administration Famotidine 20 mg 12/01/24 13:40 12/04/24 09:10 Famotidine 20 Mg Tablet PO 20 mg DAILY ALKA Administration Fluoxetine HCl 60 mg 12/01/24 14:15 12/04/24 09:10 Fluoxetine Hcl 20 Mg Capsule PO 60 mg DAILY ALKA Administration Gabapentin 100 mg 12/01/24 13:00 12/04/24 09:10 Gabapentin 100 Mg Capsule PO 100 mg TID ALKA Administration Heparin Sodium (Porcine) 5,000 units 12/01/24 21:00 12/04/24 09:09 Heparin Sodium 5,000 Units/Ml Vial SUB-Q 5,000 units Q12HR ALKA Administration Piperacillin/Tazobactam/Dextrose 3.375 gm in 50 mls @ 100 mls/hr 12/01/24 08:00 12/04/24 09:09 Zosyn 3.375 Gm/Ns 50 Ml IVPB 100 mls/hr Q6H ALKA Administration Sodium Chloride 1,000 mls @ 75 mls/hr 12/02/24 13:55 12/04/24 02:00 Normal Saline Iv IV CONT 75 mls/hr .[id number] ALKA Administration Levetiracetam 1,000 mg 12/01/24 13:55 12/04/24 09:09 Levetiracetam 500 Mg Tablet PO 1,000 mg Q12HR ALKA Administration Lisinopril 5 mg 12/02/24 09:00 12/04/24 09:10 Lisinopril 5 Mg Tablet PO 5 mg DAILY ALKA Administration Lorazepam 0.5 mg 12/01/24 13:11 12/03/24 21:05 Lorazepam (*Crx) 0.5 Mg Tablet BY MOUTH 0.5 mg DAILY PRN Administration anxiety Metoprolol Tartrate 50 mg 12/01/24 13:55 12/04/24 09:10 Metoprolol Tartrate 50 Mg Tab PO 50 mg Q12HR ALKA Administration Polyethylene Glycol 17 gm 12/03/24 10:59 Polyethylene Glycol 3350 17 Gm Powd.Pack PO QAM PRN Constipation Quetiapine Fumarate 25 mg 12/01/24 13:00 12/04/24 09:10 Quetiapine Fumarate 25 Mg Tablet PO 25 mg 0900,1300,2100 ALKA Administration Quetiapine Fumarate 100 mg 12/01/24 13:00 12/04/24 09:11 Quetiapine Fumarate 100 Mg Tablet PO 100 mg 0900,1300,2100 ALKA Administration Senna/Docusate Sodium 1 tab 12/01/24 13:40 12/04/24 09:10 Senna/Docusate Sodium Tablet PO 1 tab DAILY ALKA Administration Sodium Zirconium Cyclosilicate 10 gm 12/01/24 10:00 12/04/24 09:09 Sodium Zirconium Cyclosilicate 10 Gm Powd.Pack PO 10 gm DAILY@1000 ALKA Administration Tamsulosin HCl 0.4 mg 12/01/24 21:00 12/03/24 21:05 Tamsulosin Hcl 0.4 Mg Capsule PO 0.4 mg HS ALKA Administration Tramadol HCl 50 mg 12/01/24 13:11 12/03/24 21:05 Tramadol Hcl (*Crx) 50 Mg Tablet PO 50 mg BID PRN Administration pain Trazodone HCl 50 mg 12/01/24 21:00 12/03/24 21:05 Trazodone Hcl 50 Mg Tablet PO 50 mg HS ALKA Administration Venlafaxine HCl 150 mg 12/01/24 13:45 12/04/24 09:10 Venlafaxine Hcl Xr 75 Mg Cap.Er.24h PO 150 mg DAILY ALKA Administration Vitamin D 2,000 units 12/02/24 09:00 12/04/24 09:09 Cholecalciferol 1,000 Units Tablet PO 2,000 units DAILY ALKA Administration Radiology Results: ITS Impressions Tibia/Fibula X-Ray 11/30/24 16:48 IMPRESSION: 1. No evidence of osteomyelitis. Lower Extremity CTA 11/30/24 23:06 IMPRESSION: 1. 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 Labs Labs: Laboratory Results - last 24 hr 12/04/24 02:09 WBC 8.0 RBC 3.36 L Hgb 9.5 L Hct 29.3 L MCV 87.2 MCH 28.3 MCHC 32.4 RDW 16.1 H Plt Count 184 MPV 9.4 Immature Gran % (Auto) 0.6 H Neut % (Auto) 57.3 Lymph % (Auto) 24.8 [place] % (Auto) 7.4 Eos % (Auto) 9.3 H Baso % (Auto) 0.6 Lymph # (Auto) 1.97 [place] # (Auto) 0.6 Eos # (Auto) 0.7 H Baso # (Auto) 0.1 Abs Immat Gran (auto) 0.05 H Absolute Neuts (auto) 4.6 Absolute Nucleated RBC 0.000 Nucleated RBC % 0.0 Sodium 143 Potassium 4.1 Chloride 113 H Carbon Dioxide 20 L Anion Gap 10 BUN 20 Creatinine 1.78 H Estim Creat Clear Calc 51 Estimated GFR 41 L Glucose 86 Calcium 8.1 L Magnesium 1.7 Total Bilirubin 0.5 AST 26 ALT 18 Alkaline Phosphatase 85 Total Protein 7.0 Albumin 3.1 L Vancomycin Trough 11.8 Quality VTE Prophylaxis VTE prophylaxis: pharmacologic ordered
[2024-12-04 14:00] VITALS: BP 150/94; PULSE 76; RESP 16; TEMP 35.8; O2SAT 97
[2024-12-04] MEDS: traMADol HCL (*CRX) 50 MG TABLET PO (17:07)
[2024-12-04] MEDS: COLLAGENASE OINT 30 GM TUBE 1 APPLIC TOPICAL (17:07)
[2024-12-04 20:00] VITALS: BP 142/84; PULSE 80; RESP 20; TEMP 36.8; O2SAT 98
[2024-12-04 20:18] VITALS: PULSE 76
[2024-12-04] MEDS: TAMSULOSIN HCL 0.4 MG CAPSULE PO (20:18)
[2024-12-04] MEDS: traZODone HCL 50 MG TABLET PO (20:19)
[2024-12-04] MEDS: ATORVASTATIN 40 MG TABLET PO (20:19)
[2024-12-05] VITALS (7 sets, daily range): BP systolic 141–216; BP diastolic 81–122; PULSE 69–91; RESP 14–20; TEMP 36.4–37.1; O2SAT 98–99
[2024-12-05] MEDS: SODIUM CHLORIDE 0.9% IV 1,000 ML 75 ML IV CONT ×2 (01:42→21:11)
[2024-12-05] MEDS: PIPERACILLN/TAZ 3.375GM/NS50ML 3.375 GM/50 ML BAG IVPB ×4 (01:42→20:58)
[2024-12-05] MEDS: traMADol HCL (*CRX) 50 MG TABLET PO ×3 (05:57→17:18)
[2024-12-05 07:28] LABS: Basophils Absolute Auto 0.1 K/mm3 (0.0-0.1); Basophils Percent Auto 0.8 % (0.2-1.2); Eosinophils Absolute Auto 0.9 K/mm3 (0-0.3); Eosinophils Percent Auto 11.8 % (0-4.4); Hematocrit 29.4 % (42.0-52.0); Hemoglobin 9.4 g/dL (14.0-18.0); Immature Granulocyte Absolute 0.07 K/mm3 (0.00-0.031); Immature Granulocyte Percent A 0.9 % (0-0.5); Lymphocytes Absolute Auto 1.65 K/mm3 (0.9-3.2); Lymphocytes Percent Auto 21.8 % (18.3-44.2); Mean Corpuscular Hemoglobin 28.1 pg (26-34); Mean Corpuscular Volume 87.8 fl (80-100); Mean Platelet Volume 9.7 fl (7.4-10.4); Monocytes Absolute Auto 0.6 K/mm3 (0.1-0.6); Monocytes Percent Auto 8.2 % (2.6-8.5); Neutrophils Absolute Auto 4.3 K/mm3 (1.3-6.7); Neutrophils Percent Auto 56.5 % (45.5-73.1); Platelet Count Result 187 k/mm3 (150-375); Red Blood Count 3.35 M/mm3 (4.6-6.20); Red Cell Distribution Width 15.9 % (11.5-14.5); White Blood Count 7.6 K/mm3 (4.5-10.0)
[2024-12-05 07:40] LABS: Alanine Aminotransferase 19 U/L (6-50); Albumin Level 3.1 g/dL (3.5-5.1); Alkaline Phosphatase 81 U/L (38-126); Anion Gap 8 mmol/L (4-12); Aspartate Amino Transferase 27 U/L (17-59); Bilirubin,Total 0.5 mg/dL (0.2-1.3); Blood Urea Nitrogen 17 mg/dL (9-20); Calcium 8.5 mg/dL (8.4-10.2); Carbon Dioxide 22 mmol/L (22-30); Chloride 113 mmol/L (98-107); Estimated CRCL calculation 51 ml/min; Estimated Glomerular Filt Rate 41; Glucose 83 mg/dL (65-110); Magnesium 1.7 mg/dL (1.6-2.3); Potassium 4.4 mmol/L (3.4-5.0); Sodium 143 mmol/L (137-145)
[2024-12-05] MEDS: LORazepam (*CRX) 0.5 MG TABLET BY MOUTH (09:15)
[2024-12-05] MEDS: FLUoxetine HCL 20 MG CAPSULE 60 MG PO (09:16)
[2024-12-05] MEDS: ASPIRIN 81 MG CHEWABLE TABLET PO (09:16)
[2024-12-05] MEDS: VENLAFAXINE HCL XR 75 MG CAP.ER.24H 150 MG PO (09:17)
[2024-12-05] MEDS: busPIRone HCL 10 MG TABLET PO ×3 (09:17→17:18)
[2024-12-05] MEDS: CHOLECALCIFEROL 1,000 UNITS TABLET 2000 UNITS PO (09:17)
[2024-12-05] MEDS: levETIRAcetam 500 MG TABLET 1000 MG PO ×2 (09:17→20:57)
[2024-12-05] MEDS: ASCORBIC ACID 500 MG TABLET PO (09:17)
[2024-12-05] MEDS: FAMOTIDINE 20 MG TABLET PO (09:18)
[2024-12-05] MEDS: CYANOCOBALAMIN 500 MCG TABLET PO (09:18)
[2024-12-05] MEDS: SENNA/DOCUSATE SODIUM TABLET 1 TAB PO (09:18)
[2024-12-05] MEDS: lisinopriL 5 MG TABLET PO (09:18)
[2024-12-05] MEDS: GABAPENTIN 100 MG CAPSULE PO ×3 (09:18→17:18)
[2024-12-05] MEDS: HEPARIN SODIUM 5,000 UNITS/ML VIAL 5000 UNITS SUB-Q ×2 (09:18→20:58)
[2024-12-05] MEDS: METOPROLOL TARTRATE 50 MG TAB PO ×2 (09:18→20:59)
[2024-12-05] MEDS: SODIUM ZIRCONIUM CYCLOSILICATE 10 GM POWD.PACK PO (09:18)
[2024-12-05] MEDS: DIVALPROEX SODIUM DR 250 MG TABEC 500 MG PO (09:18)
[2024-12-05] MEDS: QUEtiapine FUMARATE 100 MG TABLET PO ×3 (09:31→21:10)
[2024-12-05] MEDS: QUEtiapine FUMARATE 25 MG TABLET PO ×3 (09:31→21:10)
--- NOTE | 2024-12-05 12:36 | P.PNIM_ITS ---
Progress Note: A&P Assessment and Plan (1) Peripheral artery disease: Code(s): I73.9 - Peripheral vascular disease, unspecified Status: Acute Assessment and Plan: * CTA Left LE: FINDINGS: There is no significant stenosis of the included portion of left superficial femoral artery. There is severe stenosis of the above-knee popliteal artery. There is no significant stenosis of the tibioperoneal trunk, anterior tibial artery, posterior tibial artery, or the peroneal artery. Again seen is an 8 mm radiopaque foreign body in the musculature of the foot. IMPRESSION: 1. 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 * Dr. Haresh Laura Vascular at [facility] on 11/29/24. Per the note patient will need a LAIF and an RAIF but she is unsure when he is supposed to be seen next. * Called and presented patient to their transfer center, waiting to hear back. * Patient is receiving Aspirin 81 mg PO daily and Atorvastatin 40 mg PO at bedtime. * Called Dr. Haresh Laura office today 12/03/24, awaiting a call back from Dr. Laura to discuss patient and plan. Patient will need scheduled for further testing per Dr. Laura office. 12/05/24: * Pt currently awaiting bed assignment and transfer to [facility] for vascular evaluation. (2) Wound of left lower extremity: Code(s): S81.802A - Unspecified open wound, left lower leg, initial encounter Status: Acute Assessment and Plan: * Zosyn 3.375 gm IVPB q 6. * Vancomycin 1,500 mg IVPB daily stopped on 12/04/24. * Renally dose. * Wound care consult. * LLE leg wound culture grew pseudomonas aeruginosa and staphylococcus aureus. * Santyl to wound. * Redness improving and decreasing inside of area marked. * Monitor pulses. * Pain control. * improving. 12/05/24: * Continue IV abx * Continue wound care * Overall improving condition. (3) Seizure disorder: Code(s): G40.909 - Epilepsy, unspecified, not intractable, without status epilepticus Status: Chronic Assessment and Plan: * Levetiracetam 1,000 mg PO q 12. * Depakote 500 mg PO daily. 12/05/24: * Continue home meds (4) Hyperkalemia: Code(s): E87.5 - Hyperkalemia Status: Inactive Assessment and Plan: * Potassium 4.1, improved. 12/05/24: * Resolved (5) MARIANGEL (acute kidney injury): Code(s): N17.9 - Acute kidney failure, unspecified Status: Acute Assessment and Plan: * Creatinine 1.86 on admission, last check, 1.78. * Received a liter of normal saline in the ER. * Start NS @ 75 ml/hr * Encourage oral intake. * Monitor labs. 12/05/24: * Stable renal function at 1.77 Cr * Continue to monitor as pt is on Vancomycin. Time Spent With Patient Time with patient: 15 - 25 minutes Subjective Date/time seen: 12/05/24 1150 Interval history: Pt examined at bedside. Awaiting transfer to [facility]. No new complaints. Receiving IV abx. No worsening of pain. Review of Systems Review of Systems: All systems reviewed & are unremarkable except as noted in HPI and below Exam Const: General: comfortable, no acute distress and uncomfortable Eyes: Sclera: sclerae normal Pupils: Equal, round and reactive pupils present Resp: Effort & Inspection: normal respiratory effort Auscultation: clear to auscultation bilaterally Cardio: Rate: regular rate Rhythm: regular rhythm GI: Auscultation: normal bowel sounds Skin: Other: 1+ palpable dorsalis pedis and left popl iteal. Bilateral feet warm to touch. Several stage 1-3 ulcerations to the LLE with surrounding erythema, warmth and tenderness. Redness improving and decreasing inside of area marked. Malodorous creamy green drainage. Neuro: Cranial nerves: Yes Equal, round and reactive pupils present Speech: normal speech Extrem: General: no pedal edema Other: 1+ palpable dorsalis pedis and left popl iteal. Bilateral feet warm to touch. Several stage 1-3 ulcerations to the LLE with surrounding erythema, warmth and tenderness. Redness improving and decreasing inside of area marked. Psych: Mental Status: mental status grossly normal Affect: normal affect Other: Teary at times when he talks about family, reports missing his family. A& Ox2. Memory impaired. Objective Data Vital Signs Vital Signs: Vital Signs - 24 hr 12/04/24 14:00 12/04/24 20:00 12/04/24 20:18 Temperature 96.4 F L 98.3 F Pulse Rate 76 80 76 Respiratory Rate 16 20 Blood Pressure 150/94 H 142/84 H Pulse Oximetry 97 98 12/05/24 05:45 Temperature 98.8 F Pulse Rate 69 Respiratory Rate 20 Blood Pressure 154/87 H Pulse Oximetry 98 Intake/Output Intake/Output: Intake & Output 12/02/24 12/03/24 12/04/24 12/05/24 23:59 23:59 23:59 23:59 Intake Total 1490 3420 2320 727 Output Total 450 1350 Balance 1490 3420 1870 -623 Meds/Results Medications: Active Medications Generic Name Dose Route Start Last Admin Trade Name Freq PRN Reason Stop Dose Admin Albuterol 2 puff 12/01/24 11:32 Albuterol Sulfate (*Sp) Aerosol 1 Puff INHALATION Q6H PRN Dyspnea Alprazolam 0.5 mg 12/01/24 11:39 12/03/24 21:05 Alprazolam (*Crx) 0.5 Mg Tablet PO 0.5 mg HS PRN Administration Anxiety Ascorbic Acid 500 mg 12/01/24 13:45 12/05/24 09:17 Ascorbic Acid 500 Mg Tablet PO 500 mg DAILY ALKA Administration Aspirin 81 mg 12/01/24 13:40 12/05/24 09:16 Aspirin 81 Mg Chewable Tablet PO 81 mg DAILY ALKA Administration Atorvastatin Calcium 40 mg 12/01/24 21:00 12/04/24 20:19 Atorvastatin 40 Mg Tablet PO 40 mg HS ALKA Administration Buspirone HCl 10 mg 12/01/24 13:00 12/05/24 09:17 Buspirone Hcl 10 Mg Tablet PO 10 mg TID ALKA Administration Collagenase 1 applic 12/01/24 13:30 12/04/24 17:07 Collagenase Oint 30 Gm Tube TOPICAL 1 applic QAM ALKA Administration Cyanocobalamin 500 mcg 12/01/24 13:40 12/05/24 09:18 Cyanocobalamin 500 Mcg Tablet PO 500 mcg DAILY ALKA Administration Divalproex Sodium 500 mg 12/01/24 13:50 12/05/24 09:[address] 250 Mg Tabec PO 500 mg DAILY ALKA Administration Famotidine 20 mg 12/01/24 13:40 12/05/24 09:18 Famotidine 20 Mg Tablet PO 20 mg DAILY ALKA Administration Fluoxetine HCl 60 mg 12/01/24 14:15 12/05/24 09:16 Fluoxetine Hcl 20 Mg Capsule PO 60 mg DAILY ALKA Administration Gabapentin 100 mg 12/01/24 13:00 12/05/24 09:18 Gabapentin 100 Mg Capsule PO 100 mg TID ALKA Administration Heparin Sodium (Porcine) 5,000 units 12/01/24 21:00 12/05/24 09:18 Heparin Sodium 5,000 Units/Ml Vial SUB-Q 5,000 units Q12HR ALKA Administration Piperacillin/Tazobactam/Dextrose 3.375 gm in 50 mls @ 100 mls/hr 12/01/24 08:00 12/05/24 09:16 Zosyn 3.375 Gm/Ns 50 Ml IVPB 100 mls/hr Q6H ALKA Administration Sodium Chloride 1,000 mls @ 75 mls/hr 12/02/24 13:55 12/05/24 03:17 Normal Saline Iv IV CONT Not Given .[id number] ALKA Levetiracetam 1,000 mg 12/01/24 13:55 12/05/24 09:17 Levetiracetam 500 Mg Tablet PO 1,000 mg Q12HR ALKA Administration Lisinopril 5 mg 12/02/24 09:00 12/05/24 09:18 Lisinopril 5 Mg Tablet PO 5 mg DAILY ALKA Administration Lorazepam 0.5 mg 12/01/24 13:11 12/05/24 09:15 Lorazepam (*Crx) 0.5 Mg Tablet BY MOUTH 0.5 mg DAILY PRN Administration anxiety Metoprolol Tartrate 50 mg 12/01/24 13:55 12/05/24 09:18 Metoprolol Tartrate 50 Mg Tab PO 50 mg Q12HR ALKA Administration Polyethylene Glycol 17 gm 12/03/24 10:59 Polyethylene Glycol 3350 17 Gm Powd.Pack PO QAM PRN Constipation Quetiapine Fumarate 25 mg 12/01/24 13:00 12/05/24 09:31 Quetiapine Fumarate 25 Mg Tablet PO 25 mg 0900,1300,2100 ALKA Administration Quetiapine Fumarate 100 mg 12/01/24 13:00 12/05/24 09:31 Quetiapine Fumarate 100 Mg Tablet PO 100 mg 0900,1300,2100 ALKA Administration Senna/Docusate Sodium 1 tab 12/01/24 13:40 12/05/24 09:18 Senna/Docusate Sodium Tablet PO 1 tab DAILY ALKA Administration Sodium Zirconium Cyclosilicate 10 gm 12/01/24 10:00 12/05/24 09:18 Sodium Zirconium Cyclosilicate 10 Gm Powd.Pack PO 10 gm DAILY@1000 ALKA Administration Tamsulosin HCl 0.4 mg 12/01/24 21:00 12/04/24 20:18 Tamsulosin Hcl 0.4 Mg Capsule PO 0.4 mg HS ALKA Administration Tramadol HCl 50 mg 12/01/24 13:11 12/05/24 09:15 Tramadol Hcl (*Crx) 50 Mg Tablet PO 50 mg BID PRN Administration pain Trazodone HCl 50 mg 12/01/24 21:00 12/04/24 20:19 Trazodone Hcl 50 Mg Tablet PO 50 mg HS ALKA Administration Venlafaxine HCl 150 mg 12/01/24 13:45 12/05/24 09:17 Venlafaxine Hcl Xr 75 Mg Cap.Er.24h PO 150 mg DAILY ALKA Administration Vitamin D 2,000 units 12/02/24 09:00 12/05/24 09:17 Cholecalciferol 1,000 Units Tablet PO 2,000 units DAILY ALKA Administration Radiology Results: ITS Impressions Tibia/Fibula X-Ray 11/30/24 16:48 IMPRESSION: 1. No evidence of osteomyelitis. Lower Extremity CTA 11/30/24 23:06 IMPRESSION: 1. 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 Labs Labs: Laboratory Results - last 24 hr 12/05/24 06:52 WBC 7.6 RBC 3.35 L Hgb 9.4 L Hct 29.4 L MCV 87.8 MCH 28.1 MCHC 32.0 RDW 15.9 H Plt Count 187 MPV 9.7 Immature Gran % (Auto) 0.9 H Neut % (Auto) 56.5 Lymph % (Auto) 21.8 Butts % (Auto) 8.2 Eos % (Auto) 11.8 H Baso % (Auto) 0.8 Lymph # (Auto) 1.65 Butts # (Auto) 0.6 Eos # (Auto) 0.9 H Baso # (Auto) 0.1 Abs Immat Gran (auto) 0.07 H Absolute Neuts (auto) 4.3 Absolute Nucleated RBC 0.000 Nucleated RBC % 0.0 Sodium 143 Potassium 4.4 Chloride 113 H Carbon Dioxide 22 Anion Gap 8 BUN 17 Creatinine 1.77 H Estim Creat Clear Calc 51 Estimated GFR 41 L Glucose 83 Calcium 8.5 Magnesium 1.7 Total Bilirubin 0.5 AST 27 ALT 19 Alkaline Phosphatase 81 Total Protein 7.0 Albumin 3.1 L Quality VTE Prophylaxis VTE prophylaxis: pharmacologic ordered
[2024-12-05] MEDS: COLLAGENASE OINT 30 GM TUBE 1 APPLIC TOPICAL (16:00)
--- NOTE | 2024-12-05 16:21 | PC.NURSE ---
On 12/05/24, the student, [Fannie Lynne ], provided care and completed [facility] documentation on this patient. I have reviewed the student's documentation and agree with the findings.
[2024-12-05] MEDS: TAMSULOSIN HCL 0.4 MG CAPSULE PO (20:57)
[2024-12-05] MEDS: traZODone HCL 50 MG TABLET PO (20:58)
[2024-12-05] MEDS: ATORVASTATIN 40 MG TABLET PO (20:58)
[2024-12-05] MEDS: ALPRAZolam (*CRX) 0.5 MG TABLET PO (21:38)
[2024-12-05] MEDS: hydrALAZINE HCL 20 MG/ML VIAL 10 MG IV PUSH (21:42)
[2024-12-05] MEDS: MORPHINE SULFATE (*CRX) 2 MG/ML INJ IV PUSH (23:01)
[2024-12-06] MEDS: PIPERACILLN/TAZ 3.375GM/NS50ML 3.375 GM/50 ML BAG IVPB ×4 (01:20→20:28)
[2024-12-06] MEDS: traMADol HCL (*CRX) 50 MG TABLET PO ×2 (05:29→20:28)
[2024-12-06 06:00] VITALS: BP 141/78; PULSE 65; RESP 18; TEMP 36.4; O2SAT 98
[2024-12-06 07:34] LABS: Basophils Absolute Auto 0.1 K/mm3 (0.0-0.1); Basophils Percent Auto 0.7 % (0.2-1.2); Eosinophils Absolute Auto 0.7 K/mm3 (0-0.3); Eosinophils Percent Auto 10.6 % (0-4.4); Hematocrit 29.5 % (42.0-52.0); Hemoglobin 9.4 g/dL (14.0-18.0); Immature Granulocyte Absolute 0.06 K/mm3 (0.00-0.031); Immature Granulocyte Percent A 0.9 % (0-0.5); Lymphocytes Absolute Auto 1.79 K/mm3 (0.9-3.2); Lymphocytes Percent Auto 26.6 % (18.3-44.2); Mean Corpuscular HGB Conc 31.9 g/dl (32-36); Mean Corpuscular Hemoglobin 28.2 pg (26-34); Mean Corpuscular Volume 88.6 fl (80-100); Monocytes Absolute Auto 0.6 K/mm3 (0.1-0.6); Monocytes Percent Auto 8.5 % (2.6-8.5); Neutrophils Absolute Auto 3.5 K/mm3 (1.3-6.7); Neutrophils Percent Auto 52.7 % (45.5-73.1); Platelet Count Result 180 k/mm3 (150-375); Red Blood Count 3.33 M/mm3 (4.6-6.20); Red Cell Distribution Width 16.1 % (11.5-14.5); White Blood Count 6.7 K/mm3 (4.5-10.0)
[2024-12-06 07:43] LABS: Alanine Aminotransferase 20 U/L (6-50); Alkaline Phosphatase 79 U/L (38-126); Anion Gap 5 mmol/L (4-12); Aspartate Amino Transferase 25 U/L (17-59); Bilirubin,Total 0.5 mg/dL (0.2-1.3); Blood Urea Nitrogen 13 mg/dL (9-20); Calcium 8.5 mg/dL (8.4-10.2); Carbon Dioxide 24 mmol/L (22-30); Chloride 113 mmol/L (98-107); Estimated CRCL calculation 54 ml/min; Estimated Glomerular Filt Rate 44; Glucose 83 mg/dL (65-110); Magnesium 1.7 mg/dL (1.6-2.3); Potassium 4.1 mmol/L (3.4-5.0); Sodium 142 mmol/L (137-145)
[2024-12-06] MEDS: busPIRone HCL 10 MG TABLET PO ×3 (08:39→17:22)
[2024-12-06] MEDS: VENLAFAXINE HCL XR 75 MG CAP.ER.24H 150 MG PO (08:39)
[2024-12-06] MEDS: ASPIRIN 81 MG CHEWABLE TABLET PO (08:39)
[2024-12-06] MEDS: GABAPENTIN 100 MG CAPSULE PO ×3 (08:39→17:22)
[2024-12-06] MEDS: ASCORBIC ACID 500 MG TABLET PO (08:39)
[2024-12-06] MEDS: FLUoxetine HCL 20 MG CAPSULE 60 MG PO (08:39)
[2024-12-06] MEDS: QUEtiapine FUMARATE 25 MG TABLET PO ×3 (08:39→20:29)
[2024-12-06] MEDS: FAMOTIDINE 20 MG TABLET PO (08:40)
[2024-12-06] MEDS: COLLAGENASE OINT 30 GM TUBE 1 APPLIC TOPICAL (08:40)
[2024-12-06] MEDS: levETIRAcetam 500 MG TABLET 1000 MG PO ×2 (08:40→20:29)
[2024-12-06] MEDS: lisinopriL 5 MG TABLET PO (08:40)
[2024-12-06] MEDS: LORazepam (*CRX) 0.5 MG TABLET BY MOUTH (08:40)
[2024-12-06] MEDS: CHOLECALCIFEROL 1,000 UNITS TABLET 2000 UNITS PO (08:40)
[2024-12-06] MEDS: HEPARIN SODIUM 5,000 UNITS/ML VIAL 5000 UNITS SUB-Q ×2 (08:40→20:29)
[2024-12-06] MEDS: DIVALPROEX SODIUM DR 250 MG TABEC 500 MG PO (08:40)
[2024-12-06] MEDS: SENNA/DOCUSATE SODIUM TABLET 1 TAB PO (08:40)
[2024-12-06] MEDS: CYANOCOBALAMIN 500 MCG TABLET PO (08:40)
[2024-12-06] MEDS: METOPROLOL TARTRATE 50 MG TAB PO ×2 (08:40→20:29)
[2024-12-06] MEDS: QUEtiapine FUMARATE 100 MG TABLET PO ×3 (08:41→20:30)
[2024-12-06] MEDS: SODIUM ZIRCONIUM CYCLOSILICATE 10 GM POWD.PACK PO (09:00)
--- NOTE | 2024-12-06 13:54 | P.PNIM_ITS ---
Progress Note: A&P Assessment and Plan (1) Peripheral artery disease: Code(s): I73.9 - Peripheral vascular disease, unspecified Status: Acute Assessment and Plan: * CTA Left LE: FINDINGS: There is no significant stenosis of the included portion of left superficial femoral artery. There is severe stenosis of the above-knee popliteal artery. There is no significant stenosis of the tibioperoneal trunk, anterior tibial artery, posterior tibial artery, or the peroneal artery. Again seen is an 8 mm radiopaque foreign body in the musculature of the foot. IMPRESSION: 1. 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 * Dr. Haresh Laura Vascular at [facility] on 11/29/24. Per the note patient will need a LAIF and an RAIF but she is unsure when he is supposed to be seen next. * Called and presented patient to their transfer center, waiting to hear back. * Patient is receiving Aspirin 81 mg PO daily and Atorvastatin 40 mg PO at bedtime. * Called Dr. Haresh Laura office today 12/03/24, awaiting a call back from Dr. Laura to discuss patient and plan. Patient will need scheduled for further testing per Dr. Laura office. 12/05/24: * Pt currently awaiting bed assignment and transfer to [facility] for vascular evaluation. (2) Wound of left lower extremity: Code(s): S81.802A - Unspecified open wound, left lower leg, initial encounter Status: Acute Assessment and Plan: * Zosyn 3.375 gm IVPB q 6. * Vancomycin 1,500 mg IVPB daily stopped on 12/04/24. * Renally dose. * Wound care consult. * LLE leg wound culture grew pseudomonas aeruginosa and staphylococcus aureus. * Santyl to wound. * Redness improving and decreasing inside of area marked. * Monitor pulses. * Pain control. * improving. 12/05/24: * Continue IV abx * Continue wound care * Overall improving condition. (3) Seizure disorder: Code(s): G40.909 - Epilepsy, unspecified, not intractable, without status epilepticus Status: Chronic Assessment and Plan: * Levetiracetam 1,000 mg PO q 12. * Depakote 500 mg PO daily. 12/05/24: * Continue home meds (4) Hyperkalemia: Code(s): E87.5 - Hyperkalemia Status: Inactive Assessment and Plan: * Potassium 4.1, improved. 12/05/24: * Resolved (5) MARIANGEL (acute kidney injury): Code(s): N17.9 - Acute kidney failure, unspecified Status: Acute Assessment and Plan: * Creatinine 1.86 on admission, last check, 1.78. * Received a liter of normal saline in the ER. * Start NS @ 75 ml/hr * Encourage oral intake. * Monitor labs. 12/05/24: * Stable renal function at 1.77 Cr * Continue to monitor as pt is on Vancomycin. Time Spent With Patient Time with patient: 15 - 25 minutes Subjective Date/time seen: 12/06/24 1115 Interval history: Pt was examined at the bedside today and he was not in any distress. We are still awaiting a bed placement at [facility]. Labs and VS stable today. He continues on abx. Review of Systems Review of Systems: All systems reviewed & are unremarkable except as noted in HPI and below Exam Const: General: comfortable, no acute distress and uncomfortable Eyes: Sclera: sclerae normal Pupils: Equal, round and reactive pupils present Resp: Effort & Inspection: normal respiratory effort Auscultation: clear to auscultation bilaterally Cardio: Rate: regular rate Rhythm: regular rhythm GI: Auscultation: normal bowel sounds Skin: Other: 1+ palpable dorsalis pedis and left popl iteal. Bilateral feet warm to touch. Several stage 1-3 ulcerations to the LLE with surrounding erythema, warmth and tenderness. Redness improving and decreasing inside of area marked. Malodorous creamy green drainage. Neuro: Cranial nerves: Yes Equal, round and reactive pupils present Speech: normal speech Extrem: General: no pedal edema Other: 1+ palpable dorsalis pedis and left popl iteal. Bilateral feet warm to touch. Several stage 1-3 ulcerations to the LLE with surrounding erythema, warmth and tenderness. Redness improving and decreasing inside of area marked. Psych: Mental Status: mental status grossly normal Affect: normal affect Other: Teary at times when he talks about family, reports missing his family. A& Ox2. Memory impaired. Objective Data Vital Signs Vital Signs: Vital Signs - 24 hr 12/05/24 14:00 12/05/24 14:32 12/05/24 15:30 Temperature 98.1 F Pulse Rate 76 Respiratory Rate 14 Blood Pressure 152/101 H 182/100 H 176/86 H Pulse Oximetry 98 Oxygen Delivery 12/05/24 20:00 12/05/24 20:45 12/05/24 20:59 Temperature 97.7 F Pulse Rate 91 91 Respiratory Rate 20 Blood Pressure 216/122 H Pulse Oximetry 99 Oxygen Delivery Room Air 12/05/24 21:45 12/06/24 06:00 Temperature 97.6 F 97.6 F Pulse Rate 76 65 Respiratory Rate 18 18 Blood Pressure 141/81 H 141/78 H Pulse Oximetry 98 98 Oxygen Delivery Intake/Output Intake/Output: Intake & Output 12/03/24 12/04/24 12/05/24 12/06/24 23:59 23:59 23:59 23:59 Intake Total 3420 2320 2357 680 Output Total 450 2600 800 Balance 3420 4097 -247 -034 Meds/Results Medications: Active Medications Generic Name Dose Route Start Last Admin Trade Name Freq PRN Reason Stop Dose Admin Acetaminophen 650 mg 12/05/24 22:53 Acetaminophen 325 Mg Tablet PO Q6H PRN Mild Pain (1-3) or Fever Albuterol 2 puff 12/01/24 11:32 Albuterol Sulfate (*Sp) Aerosol 1 Puff INHALATION Q6H PRN Dyspnea Alprazolam 0.5 mg 12/01/24 11:39 12/05/24 21:38 Alprazolam (*Crx) 0.5 Mg Tablet PO 0.5 mg HS PRN Administration Anxiety Ascorbic Acid 500 mg 12/01/24 13:45 12/06/24 08:39 Ascorbic Acid 500 Mg Tablet PO 500 mg DAILY ALKA Administration Aspirin 81 mg 12/01/24 13:40 12/06/24 08:39 Aspirin 81 Mg Chewable Tablet PO 81 mg DAILY ALKA Administration Atorvastatin Calcium 40 mg 12/01/24 21:00 12/05/24 20:58 Atorvastatin 40 Mg Tablet PO 40 mg HS ALKA Administration Buspirone HCl 10 mg 12/01/24 13:00 12/06/24 13:11 Buspirone Hcl 10 Mg Tablet PO 10 mg TID ALKA Administration Collagenase 1 applic 12/01/24 13:30 12/06/24 08:40 Collagenase Oint 30 Gm Tube TOPICAL 1 applic QAM ALKA Administration Cyanocobalamin 500 mcg 12/01/24 13:40 12/06/24 08:40 Cyanocobalamin 500 Mcg Tablet PO 500 mcg DAILY ALKA Administration Divalproex Sodium 500 mg 12/01/24 13:50 12/06/24 08:[address] 250 Mg Tabec PO 500 mg DAILY ALKA Administration Famotidine 20 mg 12/01/24 13:40 12/06/24 08:40 Famotidine 20 Mg Tablet PO 20 mg DAILY ALKA Administration Fluoxetine HCl 60 mg 12/01/24 14:15 12/06/24 08:39 Fluoxetine Hcl 20 Mg Capsule PO 60 mg DAILY ALKA Administration Gabapentin 100 mg 12/01/24 13:00 12/06/24 13:12 Gabapentin 100 Mg Capsule PO 100 mg TID ALKA Administration Heparin Sodium (Porcine) 5,000 units 12/01/24 21:00 12/06/24 08:40 Heparin Sodium 5,000 Units/Ml Vial SUB-Q 5,000 units Q12HR ALKA Administration Piperacillin/Tazobactam/Dextrose 3.375 gm in 50 mls @ 100 mls/hr 12/01/24 08:00 12/06/24 13:12 Zosyn 3.375 Gm/Ns 50 Ml IVPB 100 mls/hr Q6H ALKA Administration Sodium Chloride 1,000 mls @ 75 mls/hr 12/02/24 13:55 12/05/24 21:11 Normal Saline Iv IV CONT 75 mls/hr .[id number] ALKA Administration Levetiracetam 1,000 mg 12/01/24 13:55 12/06/24 08:40 Levetiracetam 500 Mg Tablet PO 1,000 mg Q12HR ALKA Administration Lisinopril 5 mg 12/02/24 09:00 12/06/24 08:40 Lisinopril 5 Mg Tablet PO 5 mg DAILY ALKA Administration Lorazepam 0.5 mg 12/01/24 13:11 12/06/24 08:40 Lorazepam (*Crx) 0.5 Mg Tablet BY MOUTH 0.5 mg DAILY PRN Administration anxiety Metoprolol Tartrate 50 mg 12/01/24 13:55 12/06/24 08:40 Metoprolol Tartrate 50 Mg Tab PO 50 mg Q12HR ALKA Administration Polyethylene Glycol 17 gm 12/03/24 10:59 Polyethylene Glycol 3350 17 Gm Powd.Pack PO QAM PRN Constipation Quetiapine Fumarate 25 mg 12/01/24 13:00 12/06/24 13:12 Quetiapine Fumarate 25 Mg Tablet PO 25 mg 0900,1300,2100 ALKA Administration Quetiapine Fumarate 100 mg 12/01/24 13:00 12/06/24 13:11 Quetiapine Fumarate 100 Mg Tablet PO 100 mg 0900,1300,2100 ALKA Administration Senna/Docusate Sodium 1 tab 12/01/24 13:40 12/06/24 08:40 Senna/Docusate Sodium Tablet PO 1 tab DAILY ALKA Administration Sodium Zirconium Cyclosilicate 10 gm 12/01/24 10:00 12/06/24 09:00 Sodium Zirconium Cyclosilicate 10 Gm Powd.Pack PO 10 gm DAILY@1000 ALKA Administration Tamsulosin HCl 0.4 mg 12/01/24 21:00 12/05/24 20:57 Tamsulosin Hcl 0.4 Mg Capsule PO 0.4 mg HS [facility] Administration Tramadol HCl 50 mg 12/01/24 13:11 12/06/24 05:29 Tramadol Hcl (*Crx) 50 Mg Tablet PO 50 mg BID PRN Administration pain Trazodone HCl 50 mg 12/01/24 21:00 12/05/24 20:58 Trazodone Hcl 50 Mg Tablet PO 50 mg HS ALKA Administration Venlafaxine HCl 150 mg 12/01/24 13:45 12/06/24 08:39 Venlafaxine Hcl Xr 75 Mg Cap.Er.24h PO 150 mg DAILY ALKA Administration Vitamin D 2,000 units 12/02/24 09:00 12/06/24 08:40 Cholecalciferol 1,000 Units Tablet PO 2,000 units DAILY ALKA Administration Radiology Results: ITS Impressions Tibia/Fibula X-Ray 11/30/24 16:48 IMPRESSION: 1. No evidence of osteomyelitis. Lower Extremity CTA 11/30/24 23:06 IMPRESSION: 1. 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 Knee X-Ray 12/05/24 21:35 IMPRESSION: Degenerative disease, without acute fracture or dislocation. Labs Labs: Laboratory Results - last 24 hr 12/06/24 07:14 WBC 6.7 RBC 3.33 L Hgb 9.4 L Hct 29.5 L MCV 88.6 MCH 28.2 MCHC 31.9 L RDW 16.1 H Plt Count 180 MPV 9.0 Immature Gran % (Auto) 0.9 H Neut % (Auto) 52.7 Lymph % (Auto) 26.6 Stearns % (Auto) 8.5 Eos % (Auto) 10.6 H Baso % (Auto) 0.7 Lymph # (Auto) 1.79 Stearns # (Auto) 0.6 Eos # (Auto) 0.7 H Baso # (Auto) 0.1 Abs Immat Gran (auto) 0.06 H Absolute Neuts (auto) 3.5 Absolute Nucleated RBC 0.000 Nucleated RBC % 0.0 Sodium 142 Potassium 4.1 Chloride 113 H Carbon Dioxide 24 Anion Gap 5 BUN 13 Creatinine 1.67 H Estim Creat Clear Calc 54 Estimated GFR 44 L Glucose 83 Calcium 8.5 Magnesium 1.7 Total Bilirubin 0.5 AST 25 ALT 20 Alkaline Phosphatase 79 Total Protein 7.0 Albumin 3.0 L
[2024-12-06 14:00] VITALS: BP 141/90; PULSE 71; RESP 18; TEMP 36.9; O2SAT 98
[2024-12-06] MEDS: SODIUM CHLORIDE 0.9% IV 1,000 ML 75 ML IV CONT (20:04)
[2024-12-06 20:12] VITALS: BP 149/95; PULSE 73; RESP 16; TEMP 36.4; O2SAT 98
[2024-12-06 20:29] VITALS: PULSE 72
[2024-12-06] MEDS: traZODone HCL 50 MG TABLET PO (20:29)
[2024-12-06] MEDS: ATORVASTATIN 40 MG TABLET PO (20:29)
[2024-12-06] MEDS: TAMSULOSIN HCL 0.4 MG CAPSULE PO (20:29)
[2024-12-07] MEDS: PIPERACILLN/TAZ 3.375GM/NS50ML 3.375 GM/50 ML BAG IVPB ×4 (01:04→20:33)
[2024-12-07 04:24] VITALS: BP 158/84; PULSE 67; RESP 16; TEMP 36.4; O2SAT 98
[2024-12-07] MEDS: traMADol HCL (*CRX) 50 MG TABLET PO ×2 (04:33→17:07)
[2024-12-07 06:56] LABS: Basophils Absolute Auto 0.1 K/mm3 (0.0-0.1); Basophils Percent Auto 0.8 % (0.2-1.2); Eosinophils Absolute Auto 0.6 K/mm3 (0-0.3); Eosinophils Percent Auto 9.4 % (0-4.4); Hematocrit 28.6 % (42.0-52.0); Hemoglobin 9.2 g/dL (14.0-18.0); Immature Granulocyte Absolute 0.04 K/mm3 (0.00-0.031); Immature Granulocyte Percent A 0.7 % (0-0.5); Lymphocytes Absolute Auto 1.73 K/mm3 (0.9-3.2); Lymphocytes Percent Auto 28.1 % (18.3-44.2); Mean Corpuscular HGB Conc 32.2 g/dl (32-36); Mean Corpuscular Hemoglobin 28.7 pg (26-34); Mean Corpuscular Volume 89.1 fl (80-100); Mean Platelet Volume 9.8 fl (7.4-10.4); Monocytes Absolute Auto 0.5 K/mm3 (0.1-0.6); Monocytes Percent Auto 8.6 % (2.6-8.5); Neutrophils Absolute Auto 3.2 K/mm3 (1.3-6.7); Neutrophils Percent Auto 52.4 % (45.5-73.1); Platelet Count Result 185 k/mm3 (150-375); Red Blood Count 3.21 M/mm3 (4.6-6.20); Red Cell Distribution Width 16.1 % (11.5-14.5); White Blood Count 6.2 K/mm3 (4.5-10.0)
[2024-12-07 07:12] LABS: Alanine Aminotransferase 20 U/L (6-50); Alkaline Phosphatase 84 U/L (38-126); Anion Gap 4 mmol/L (4-12); Aspartate Amino Transferase 24 U/L (17-59); Bilirubin,Total 0.4 mg/dL (0.2-1.3); Blood Urea Nitrogen 14 mg/dL (9-20); Calcium 8.1 mg/dL (8.4-10.2); Carbon Dioxide 23 mmol/L (22-30); Chloride 114 mmol/L (98-107); Estimated CRCL calculation 52 ml/min; Estimated Glomerular Filt Rate 42; Glucose 90 mg/dL (65-110); Magnesium 1.7 mg/dL (1.6-2.3); Potassium 3.9 mmol/L (3.4-5.0); Sodium 141 mmol/L (137-145)
[2024-12-07] MEDS: SENNA/DOCUSATE SODIUM TABLET 1 TAB PO (09:05)
[2024-12-07] MEDS: CHOLECALCIFEROL 1,000 UNITS TABLET 2000 UNITS PO (09:05)
[2024-12-07] MEDS: FLUoxetine HCL 20 MG CAPSULE 60 MG PO (09:05)
[2024-12-07] MEDS: VENLAFAXINE HCL XR 75 MG CAP.ER.24H 150 MG PO (09:05)
[2024-12-07] MEDS: QUEtiapine FUMARATE 25 MG TABLET PO ×3 (09:05→20:33)
[2024-12-07] MEDS: GABAPENTIN 100 MG CAPSULE PO ×3 (09:05→17:06)
[2024-12-07] MEDS: FAMOTIDINE 20 MG TABLET PO (09:05)
[2024-12-07] MEDS: ASPIRIN 81 MG CHEWABLE TABLET PO (09:05)
[2024-12-07 09:06] VITALS: PULSE 74
[2024-12-07] MEDS: METOPROLOL TARTRATE 50 MG TAB PO ×2 (09:06→20:32)
[2024-12-07] MEDS: CYANOCOBALAMIN 500 MCG TABLET PO (09:06)
[2024-12-07] MEDS: levETIRAcetam 500 MG TABLET 1000 MG PO ×2 (09:06→20:32)
[2024-12-07] MEDS: lisinopriL 5 MG TABLET PO (09:06)
[2024-12-07] MEDS: busPIRone HCL 10 MG TABLET PO ×3 (09:06→17:06)
[2024-12-07] MEDS: ASCORBIC ACID 500 MG TABLET PO (09:06)
[2024-12-07] MEDS: DIVALPROEX SODIUM DR 250 MG TABEC 500 MG PO (09:06)
[2024-12-07] MEDS: QUEtiapine FUMARATE 100 MG TABLET PO ×3 (09:06→20:33)
[2024-12-07] MEDS: COLLAGENASE OINT 30 GM TUBE 1 APPLIC TOPICAL (09:07)
[2024-12-07] MEDS: HEPARIN SODIUM 5,000 UNITS/ML VIAL 5000 UNITS SUB-Q ×2 (09:07→20:33)
[2024-12-07] MEDS: ACETAMINOPHEN 325 MG TABLET 650 MG PO ×2 (09:19→20:33)
[2024-12-07] MEDS: SODIUM ZIRCONIUM CYCLOSILICATE 10 GM POWD.PACK PO (12:00)
[2024-12-07 14:00] VITALS: BP 153/102; PULSE 76; RESP 20; TEMP 36.7; O2SAT 99
--- NOTE | 2024-12-07 15:52 | PM.IMPN ---
Progress Note: A&P Assessment and Plan (1) Peripheral artery disease: Code(s): I73.9 - Peripheral vascular disease, unspecified Status: Acute Assessment and Plan: CTA Left LE: FINDINGS: There is no significant stenosis of the included portion of left superficial femoral artery. There is severe stenosis of the above-knee popliteal artery. There is no significant stenosis of the tibioperoneal trunk, anterior tibial artery, posterior tibial artery, or the peroneal artery. Again seen is an 8 mm radiopaque foreign body in the musculature of the foot. IMPRESSION: 1. 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 Dr. Haresh Laura Vascular at [facility] on 11/29/24. Per the note patient will need a LAIF and an RAIF but she is unsure when he is supposed to be seen next. Called and presented patient to their transfer center, waiting to hear back. Patient is receiving Aspirin 81 mg PO daily and Atorvastatin 40 mg PO at bedtime. Called Dr. Haresh Laura office today 12/03/24, awaiting a call back from Dr. Laura to discuss patient and plan. Patient will need scheduled for further testing per Dr. Laura office. 12/05/24: Pt currently awaiting bed assignment and transfer to [facility] for vascular evaluation. 12/07/24: Continuing to wait for transfer at this time. (2) Wound of left lower extremity: Code(s): S81.802A - Unspecified open wound, left lower leg, initial encounter Status: Acute Assessment and Plan: Zosyn 3.375 gm IVPB q 6. Vancomycin 1,500 mg IVPB daily stopped on 12/04/24. Renally dose. Wound care consult. LLE leg wound culture grew pseudomonas aeruginosa and staphylococcus aureus. Santyl to wound. Redness improving and decreasing inside of area marked. Monitor pulses. Pain control. improving. 12/05/24: Continue IV abx Continue wound care Overall improving condition. 12/07/24: Continue current care and treatment. (3) Seizure disorder: Code(s): G40.909 - Epilepsy, unspecified, not intractable, without status epilepticus Status: Chronic Assessment and Plan: Levetiracetam 1,000 mg PO q 12. Depakote 500 mg PO daily. 12/05/24: Continue home meds 12/07/24: No seizure activity since being admitted. (4) Hyperkalemia: Code(s): E87.5 - Hyperkalemia Status: Inactive Assessment and Plan: Potassium 4.1, improved. 12/05/24: Resolved (5) MARIANGEL (acute kidney injury): Code(s): N17.9 - Acute kidney failure, unspecified Status: Acute Assessment and Plan: Creatinine 1.86 on admission, last check, 1.78. Received a liter of normal saline in the ER. Start NS @ 75 ml/hr Encourage oral intake. Monitor labs. 12/05/24: Stable renal function at 1.77 Cr Continue to monitor as pt is on Vancomycin. 12/07/24: Renal function remains stable at this time. Time Spent With Patient Time with patient: 25 - 35 minutes Subjective Date/time seen: 12/07/24 0935 Interval history: Pt resting in bed today in no acute distress. Still awaiting transfer to [facility] for Vascular evaluation and management. He has no acute complaints or concerns and no acute symptoms. Review of Systems Review of Systems: All systems reviewed & are unremarkable except as noted in HPI and below Exam Const: General: comfortable, no acute distress and uncomfortable Eyes: Sclera: sclerae normal Pupils: Equal, round and reactive pupils present Resp: Effort & Inspection: normal respiratory effort Auscultation: clear to auscultation bilaterally Cardio: Rate: regular rate Rhythm: regular rhythm GI: Auscultation: normal bowel sounds Skin: Other: 1+ palpable dorsalis pedis and left popliteal. Bilateral feet warm to touch. Several stage 1-3 ulcerations to the LLE with surrounding erythema, warmth and tenderness. Redness improving and decreasing inside of area marked. Malodorous creamy green drainage. Neuro: Cranial nerves: Yes Equal, round and reactive pupils present Speech: normal speech Extrem: General: no pedal edema Other: 1+ palpable dorsalis pedis and left popliteal. Bilateral feet warm to touch. Several stage 1-3 ulcerations to the LLE with surrounding erythema, warmth and tenderness. Redness improving and decreasing inside of area marked. Psych: Mental Status: mental status grossly normal Affect: normal affect Other: Teary at times when he talks about family, reports missing his family. A& Ox2. Memory impaired. Objective Data Vital Signs Vital Signs: Vital Signs - 24 hr 12/06/24 20:00 12/06/24 20:12 12/06/24 20:29 Temperature 97.5 F L Pulse Rate 73 72 Respiratory Rate 16 Blood Pressure 149/95 H Pulse Oximetry 98 Oxygen Delivery Room Air 12/07/24 04:24 12/07/24 08:00 12/07/24 09:06 Temperature 97.6 F Pulse Rate 67 74 Respiratory Rate 16 Blood Pressure 158/84 H Pulse Oximetry 98 Oxygen Delivery Room Air Intake/Output Intake/Output: Intake & Output 12/04/24 12/05/24 12/06/24 12/07/24 23:59 23:59 23:59 23:59 Intake Total 2320 2357 2500 1090 Output Total 450 2600 800 675 Balance 1870 -243 1700 415 Meds/Results Medications: Active Medications Generic Name Dose Route Start Last Admin Trade Name Freq PRN Reason Stop Dose Admin Acetaminophen 650 mg 12/05/24 22:53 12/07/24 09:19 Acetaminophen 325 Mg Tablet PO 650 mg Q6H PRN Administration Mild Pain (1-3) or Fever Albuterol 2 puff 12/01/24 11:32 Albuterol Sulfate (*Sp) Aerosol 1 Puff INHALATION Q6H PRN Dyspnea Alprazolam 0.5 mg 12/01/24 11:39 12/05/24 21:38 Alprazolam (*Crx) 0.5 Mg Tablet PO 0.5 mg HS PRN Administration Anxiety Ascorbic Acid 500 mg 12/01/24 13:45 12/07/24 09:06 Ascorbic Acid 500 Mg Tablet PO 500 mg DAILY ALKA Administration Aspirin 81 mg 12/01/24 13:40 12/07/24 09:05 Aspirin 81 Mg Chewable Tablet PO 81 mg DAILY ALKA Administration Atorvastatin Calcium 40 mg 12/01/24 21:00 12/06/24 20:29 Atorvastatin 40 Mg Tablet PO 40 mg HS ALKA Administration Buspirone HCl 10 mg 12/01/24 13:00 12/07/24 12:48 Buspirone Hcl 10 Mg Tablet PO 10 mg TID ALKA Administration Collagenase 1 applic 12/01/24 13:30 12/07/24 09:07 Collagenase Oint 30 Gm Tube TOPICAL 1 applic QAM ALKA Administration Cyanocobalamin 500 mcg 12/01/24 13:40 12/07/24 09:06 Cyanocobalamin 500 Mcg Tablet PO 500 mcg DAILY ALKA Administration Divalproex Sodium 500 mg 12/01/24 13:50 12/07/24 09:[address] 250 Mg Tabec PO 500 mg DAILY ALKA Administration Famotidine 20 mg 12/01/24 13:40 12/07/24 09:05 Famotidine 20 Mg Tablet PO 20 mg DAILY ALKA Administration Fluoxetine HCl 60 mg 12/01/24 14:15 12/07/24 09:05 Fluoxetine Hcl 20 Mg Capsule PO 60 mg DAILY ALKA Administration Gabapentin 100 mg 12/01/24 13:00 12/07/24 12:48 Gabapentin 100 Mg Capsule PO 100 mg TID ALKA Administration Heparin Sodium (Porcine) 5,000 units 12/01/24 21:00 12/07/24 09:07 Heparin Sodium 5,000 Units/Ml Vial SUB-Q 5,000 units Q12HR ALKA Administration Piperacillin/Tazobactam/Dextrose 3.375 gm in 50 mls @ 100 mls/hr 12/01/24 08:00 12/07/24 14:44 Zosyn 3.375 Gm/Ns 50 Ml IVPB 100 mls/hr Q6H ALKA Administration Levetiracetam 1,000 mg 12/01/24 13:55 12/07/24 09:06 Levetiracetam 500 Mg Tablet PO 1,000 mg Q12HR ALKA Administration Lisinopril 5 mg 12/02/24 09:00 12/07/24 09:06 Lisinopril 5 Mg Tablet PO 5 mg DAILY ALKA Administration Lorazepam 0.5 mg 12/01/24 13:11 12/06/24 08:40 Lorazepam (*Crx) 0.5 Mg Tablet BY MOUTH 0.5 mg DAILY PRN Administration anxiety Metoprolol Tartrate 50 mg 12/01/24 13:55 12/07/24 09:06 Metoprolol Tartrate 50 Mg Tab PO 50 mg Q12HR ALKA Administration Polyethylene Glycol 17 gm 12/03/24 10:59 Polyethylene Glycol 3350 17 Gm Powd.Pack PO QAM PRN Constipation Quetiapine Fumarate 25 mg 12/01/24 13:00 12/07/24 12:48 Quetiapine Fumarate 25 Mg Tablet PO 25 mg 0900,1300,2100 ALKA Administration Quetiapine Fumarate 100 mg 12/01/24 13:00 12/07/24 12:48 Quetiapine Fumarate 100 Mg Tablet PO 100 mg 0900,1300,2100 [facility]KA Administration Senna/Docusate Sodium 1 tab 12/01/24 13:40 12/07/24 09:05 Senna/Docusate Sodium Tablet PO 1 tab DAILY ALKA Administration Sodium Zirconium Cyclosilicate 10 gm 12/01/24 10:00 12/07/24 12:00 Sodium Zirconium Cyclosilicate 10 Gm Powd.Pack PO 10 gm DAILY@1000 ALKA Administration Tamsulosin HCl 0.4 mg 12/01/24 21:00 12/06/24 20:29 Tamsulosin Hcl 0.4 Mg Capsule PO 0.4 mg HS [facility] Administration Tramadol HCl 50 mg 12/01/24 13:11 12/07/24 04:33 Tramadol Hcl (*Crx) 50 Mg Tablet PO 50 mg BID PRN Administration pain Trazodone HCl 50 mg 12/01/24 21:00 12/06/24 20:29 Trazodone Hcl 50 Mg Tablet PO 50 mg HS [facility] Administration Venlafaxine HCl 150 mg 12/01/24 13:45 12/07/24 09:05 Venlafaxine Hcl Xr 75 Mg Cap.Er.24h PO 150 mg DAILY [facility]KA Administration Vitamin D 2,000 units 12/02/24 09:00 12/07/24 09:05 Cholecalciferol 1,000 Units Tablet PO 2,000 units DAILY [facility]KA Administration Radiology Results: ITS Impressions Tibia/Fibula X-Ray 11/30/24 16:48 IMPRESSION: 1. No evidence of osteomyelitis. Lower Extremity CTA 11/30/24 23:06 IMPRESSION: 1. 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 Knee X-Ray 12/05/24 21:35 IMPRESSION: Degenerative disease, without acute fracture or dislocation. Labs Labs: Laboratory Results - last 24 hr 12/07/24 06:32 WBC 6.2 RBC 3.21 L Hgb 9.2 L Hct 28.6 L MCV 89.1 MCH 28.7 MCHC 32.2 RDW 16.1 H Plt Count 185 MPV 9.8 Immature Gran % (Auto) 0.7 H Neut % (Auto) 52.4 Lymph % (Auto) 28.1 Crisp % (Auto) 8.6 H Eos % (Auto) 9.4 H Baso % (Auto) 0.8 Lymph # (Auto) 1.73 Crisp # (Auto) 0.5 Eos # (Auto) 0.6 H Baso # (Auto) 0.1 Abs Immat Gran (auto) 0.04 H Absolute Neuts (auto) 3.2 Absolute Nucleated RBC 0.000 Nucleated RBC % 0.0 Sodium 141 Potassium 3.9 Chloride 114 H Carbon Dioxide 23 Anion Gap 4 BUN 14 Creatinine 1.74 H Estim Creat Clear Calc 52 Estimated GFR 42 L Glucose 90 Calcium 8.1 L Magnesium 1.7 Total Bilirubin 0.4 AST 24 ALT 20 Alkaline Phosphatase 84 Total Protein 7.0 Albumin 3.0 L Quality VTE Prophylaxis VTE prophylaxis: pharmacologic ordered
[2024-12-07 20:00] VITALS: PULSE 70; RESP 16; O2SAT 96
[2024-12-07 20:24] VITALS: BP 171/86; PULSE 70; RESP 16; TEMP 36.4; O2SAT 96
[2024-12-07] MEDS: traZODone HCL 50 MG TABLET PO (20:32)
[2024-12-07] MEDS: ATORVASTATIN 40 MG TABLET PO (20:32)
[2024-12-07] MEDS: TAMSULOSIN HCL 0.4 MG CAPSULE PO (20:33)
[2024-12-07] MEDS: ALPRAZolam (*CRX) 0.5 MG TABLET PO (20:33)
[2024-12-07 23:07] VITALS: BP 138/97
[2024-12-08] MEDS: PIPERACILLN/TAZ 3.375GM/NS50ML 3.375 GM/50 ML BAG IVPB ×4 (02:26→20:29)
[2024-12-08] MEDS: traMADol HCL (*CRX) 50 MG TABLET PO ×2 (05:34→20:29)
[2024-12-08 06:04] VITALS: BP 144/65; PULSE 68; RESP 16; TEMP 36.4; O2SAT 99
[2024-12-08 06:56] LABS: Basophils Absolute Auto 0.1 K/mm3 (0.0-0.1); Basophils Percent Auto 0.9 % (0.2-1.2); Eosinophils Absolute Auto 0.7 K/mm3 (0-0.3); Eosinophils Percent Auto 10.8 % (0-4.4); Hematocrit 30.3 % (42.0-52.0); Hemoglobin 9.4 g/dL (14.0-18.0); Immature Granulocyte Absolute 0.04 K/mm3 (0.00-0.031); Immature Granulocyte Percent A 0.6 % (0-0.5); Lymphocytes Absolute Auto 1.76 K/mm3 (0.9-3.2); Lymphocytes Percent Auto 26.5 % (18.3-44.2); Mean Corpuscular Hemoglobin 27.7 pg (26-34); Mean Corpuscular Volume 89.4 fl (80-100); Mean Platelet Volume 9.5 fl (7.4-10.4); Monocytes Absolute Auto 0.5 K/mm3 (0.1-0.6); Monocytes Percent Auto 7.2 % (2.6-8.5); Neutrophils Absolute Auto 3.6 K/mm3 (1.3-6.7); Platelet Count Result 193 k/mm3 (150-375); Red Blood Count 3.39 M/mm3 (4.6-6.20); Red Cell Distribution Width 16.4 % (11.5-14.5); White Blood Count 6.7 K/mm3 (4.5-10.0)
[2024-12-08 07:06] LABS: Alanine Aminotransferase 18 U/L (6-50); Albumin Level 2.9 g/dL (3.5-5.1); Alkaline Phosphatase 72 U/L (38-126); Anion Gap 8 mmol/L (4-12); Aspartate Amino Transferase 22 U/L (17-59); Bilirubin,Total 0.5 mg/dL (0.2-1.3); Blood Urea Nitrogen 13 mg/dL (9-20); Calcium 8.5 mg/dL (8.4-10.2); Carbon Dioxide 23 mmol/L (22-30); Chloride 112 mmol/L (98-107); Estimated CRCL calculation 48 ml/min; Estimated Glomerular Filt Rate 39; Glucose 84 mg/dL (65-110); Magnesium 1.6 mg/dL (1.6-2.3); Sodium 143 mmol/L (137-145)
[2024-12-08] MEDS: ACETAMINOPHEN 325 MG TABLET 650 MG PO ×2 (09:33→17:48)
[2024-12-08 09:35] VITALS: PULSE 68
[2024-12-08] MEDS: ASPIRIN 81 MG CHEWABLE TABLET PO (09:35)
[2024-12-08] MEDS: CHOLECALCIFEROL 1,000 UNITS TABLET 2000 UNITS PO (09:35)
[2024-12-08] MEDS: METOPROLOL TARTRATE 50 MG TAB PO ×2 (09:35→20:29)
[2024-12-08] MEDS: lisinopriL 5 MG TABLET PO (09:36)
[2024-12-08] MEDS: GABAPENTIN 100 MG CAPSULE PO ×3 (09:36→17:48)
[2024-12-08] MEDS: VENLAFAXINE HCL XR 75 MG CAP.ER.24H 150 MG PO (09:36)
[2024-12-08] MEDS: DIVALPROEX SODIUM DR 250 MG TABEC 500 MG PO (09:36)
[2024-12-08] MEDS: FAMOTIDINE 20 MG TABLET PO (09:36)
[2024-12-08] MEDS: ASCORBIC ACID 500 MG TABLET PO (09:36)
[2024-12-08] MEDS: CYANOCOBALAMIN 500 MCG TABLET PO (09:36)
[2024-12-08] MEDS: levETIRAcetam 500 MG TABLET 1000 MG PO ×2 (09:36→20:30)
[2024-12-08] MEDS: HEPARIN SODIUM 5,000 UNITS/ML VIAL 5000 UNITS SUB-Q ×2 (09:37→20:30)
[2024-12-08] MEDS: QUEtiapine FUMARATE 25 MG TABLET PO ×3 (09:37→20:29)
[2024-12-08] MEDS: FLUoxetine HCL 20 MG CAPSULE 60 MG PO (09:37)
[2024-12-08] MEDS: QUEtiapine FUMARATE 100 MG TABLET PO ×3 (09:37→20:29)
[2024-12-08] MEDS: busPIRone HCL 10 MG TABLET PO ×3 (09:37→17:48)
[2024-12-08] MEDS: COLLAGENASE OINT 30 GM TUBE 1 APPLIC TOPICAL (09:38)
[2024-12-08] MEDS: SODIUM ZIRCONIUM CYCLOSILICATE 10 GM POWD.PACK PO (12:02)
--- NOTE | 2024-12-08 13:52 | P.PNIM_ITS ---
Progress Note: A&P Assessment and Plan (1) Peripheral artery disease: Code(s): I73.9 - Peripheral vascular disease, unspecified Status: Acute Assessment and Plan: * CTA Left LE: FINDINGS: There is no significant stenosis of the included portion of left superficial femoral artery. There is severe stenosis of the above-knee popliteal artery. There is no significant stenosis of the tibioperoneal trunk, anterior tibial artery, posterior tibial artery, or the peroneal artery. Again seen is an 8 mm radiopaque foreign body in the musculature of the foot. IMPRESSION: 1. 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 * Dr. Haresh Laura Vascular at [facility] on 11/29/24. Per the note patient will need a LAIF and an RAIF but she is unsure when he is supposed to be seen next. * Called and presented patient to their transfer center, waiting to hear back. * Patient is receiving Aspirin 81 mg PO daily and Atorvastatin 40 mg PO at bedtime. * Called Dr. Haresh Laura office today 12/03/24, awaiting a call back from Dr. Laura to discuss patient and plan. Patient will need scheduled for further testing per Dr. Laura office. 12/05/24: * Pt currently awaiting bed assignment and transfer to [facility] for vascular evaluation. 12/07/24: * Continuing to wait for transfer at this time. 12/08/24 D/w with Vascular MD at [facility] today no need for any urgent transfer can treat wound in hospital and DC to vascular follow up OPD Vascular MDwith discuss with DR Laura to bring vascular surgery date forward No need to transfer pt at this stage as this a chronic PAD problem (2) Wound of left lower extremity: Code(s): S81.802A - Unspecified open wound, left lower leg, initial encounter Status: Acute Assessment and Plan: * Zosyn 3.375 gm IVPB q 6. * Vancomycin 1,500 mg IVPB daily stopped on 12/04/24. * Renally dose. * Wound care consult. * LLE leg wound culture grew pseudomonas aeruginosa and staphylococcus aureus. * Santyl to wound. * Redness improving and decreasing inside of area marked. * Monitor pulses. * Pain control. * improving. 12/05/24: * Continue IV abx * Continue wound care * Overall improving condition. 2/7/25: * Continue current care and treatment. 12/08 continue current care (3) Seizure disorder: Code(s): G40.909 - Epilepsy, unspecified, not intractable, without status epilepticus Status: Chronic Assessment and Plan: * Levetiracetam 1,000 mg PO q 12. * Depakote 500 mg PO daily. 12/05/24: * Continue home meds 12/07/24: * No seizure activity since being admitted. 12/08 pt is stable (4) Hyperkalemia: Code(s): E87.5 - Hyperkalemia Status: Inactive Assessment and Plan: * Potassium 4.1, improved. 12/05/24: * Resolved 12/08 (5) MARIANGEL (acute kidney injury): Code(s): N17.9 - Acute kidney failure, unspecified Status: Acute Assessment and Plan: * Creatinine 1.86 on admission, last check, 1.78. * Received a liter of normal saline in the ER. * Start NS @ 75 ml/hr * Encourage oral intake. * Monitor labs. 12/05/24: * Stable renal function at 1.77 Cr * Continue to monitor as pt is on Vancomycin. 12/07/24: * Renal function remains stable at this time. 12/08; bmp stable at 1.8 Subjective Date/time seen: 12/08/24 13:52 Interval history: 49 year old male that currently resides at [facility]. Patient is a poor historian. Spoke with nurse at [facility]. She stated that patient was seen by Dr. Laura she thought was at [facility], I called and patient seen by Dr. Haresh Laura Vascular at [facility] on 11/29/24. Per the note patient will need a LAIF and an RAIF but she is unsure when he is supposed to be seen next. Spoke with [facility] and verified that patient seen Dr. Laura there on 11/29/24. Called and presented patient to their transfer center, waiting to hear back. Patient told me year is 2004, he is at the hospital and it is September. Patient reports that he usually gets around in a wheelchair. Patient reports pain in left knees is a 6 , sharp, and occasional. Pt currently here for leg wound likely due to poor blood perfusion and severe PAD in both legs pt is due to go have surgery under DR Laura - january 10 and january 31 D/w with Vascular MD at [facility] today no need for any urgent transfer can treat wound in hospital and DC to vascular follow up OPD Vascular MDwith discuss with DR Laura to bring vascular surgery date forward No need to transfer pt at this stage as this a chronic PAD problem Review of Systems Review of Systems: Ongoing leg pains Exam Const: General: comfortable, no acute distress and uncomfortable Resp: Effort & Inspection: normal respiratory effort Auscultation: clear to auscultation bilaterally Cardio: Rate: regular rate Rhythm: regular rhythm GI: Auscultation: normal bowel sounds Skin: Other: 1+ palpable dorsalis pedis and left popl iteal. Bilateral feet warm to touch. Several stage 1-3 ulcerations to the LLE with surrounding erythema, warmth and tenderness. Redness improving and decreasing inside of area marked. Malodorous creamy green drainage. Neuro: Cranial nerves: Yes Equal, round and reactive pupils present Speech: normal speech Extrem: General: no pedal edema Other: 1+ palpable dorsalis pedis and left popl iteal. Bilateral feet warm to touch. Several stage 1-3 ulcerations to the LLE with surrounding erythema, warmth and tenderness. Redness improving and decreasing inside of area marked. Psych: Mental Status: mental status grossly normal Affect: normal affect Other: Teary at times when he talks about family, reports missing his family. A& Ox2. Memory impaired. Objective Data Vital Signs Vital Signs: Vital Signs - 24 hr 12/07/24 14:00 12/07/24 20:00 12/07/24 20:24 Temperature 36.7 C 36.4 C Pulse Rate 76 70 70 Respiratory Rate 20 16 16 Blood Pressure 153/102 H 171/86 H Pulse Oximetry 99 96 96 Oxygen Delivery Room Air 12/07/24 23:07 12/08/24 06:04 12/08/24 08:40 Temperature 36.4 C Pulse Rate 68 Respiratory Rate 16 Blood Pressure 138/97 H 144/65 H Pulse Oximetry 99 Oxygen Delivery Room Air 12/08/24 09:35 Temperature Pulse Rate 68 Respiratory Rate Blood Pressure Pulse Oximetry Oxygen Delivery Intake/Output Intake/Output: Intake & Output 12/05/24 12/06/24 12/07/24 12/08/24 23:59 23:59 23:59 23:59 Intake Total 3097 2500 1430 840 Output Total 2600 800 975 Balance -243 1700 455 840 Meds/Results Medications: Active Medications Generic Name Dose Route Start Last Admin Trade Name Freq PRN Reason Stop Dose Admin Acetaminophen 650 mg 12/05/24 22:53 12/08/24 09:33 Acetaminophen 325 Mg Tablet PO 650 mg Q6H PRN Administration Mild Pain (1-3) or Fever Albuterol 2 puff 12/01/24 11:32 Albuterol Sulfate (*Sp) Aerosol 1 Puff INHALATION Q6H PRN Dyspnea Alprazolam 0.5 mg 12/01/24 11:39 12/07/24 20:33 Alprazolam (*Crx) 0.5 Mg Tablet PO 0.5 mg HS PRN Administration Anxiety Ascorbic Acid 500 mg 12/01/24 13:45 12/08/24 09:36 Ascorbic Acid 500 Mg Tablet PO 500 mg DAILY ALKA Administration Aspirin 81 mg 12/01/24 13:40 12/08/24 09:35 Aspirin 81 Mg Chewable Tablet PO 81 mg DAILY [facility]KA Administration Atorvastatin Calcium 40 mg 12/01/24 21:00 12/07/24 20:32 Atorvastatin 40 Mg Tablet PO 40 mg HS [facility] Administration Buspirone HCl 10 mg 12/01/24 13:00 12/08/24 09:37 Buspirone Hcl 10 Mg Tablet PO 10 mg TID [facility]KA Administration Collagenase 1 applic 12/01/24 13:30 12/08/24 09:38 Collagenase Oint 30 Gm Tube TOPICAL 1 applic QAM [facility]KA Administration Cyanocobalamin 500 mcg 12/01/24 13:40 12/08/24 09:36 Cyanocobalamin 500 Mcg Tablet PO 500 mcg DAILY [facility] Administration Divalproex Sodium 500 mg 12/01/24 13:50 12/08/24 09:[address] 250 Mg Tabec PO 500 mg DAILY [facility]KA Administration Famotidine 20 mg 12/01/24 13:40 12/08/24 09:36 Famotidine 20 Mg Tablet PO 20 mg DAILY [facility]KA Administration Fluoxetine HCl 60 mg 12/01/24 14:15 12/08/24 09:37 Fluoxetine Hcl 20 Mg Capsule PO 60 mg DAILY [facility] Administration Gabapentin 100 mg 12/01/24 13:00 12/08/24 09:36 Gabapentin 100 Mg Capsule PO 100 mg TID ALKA Administration Heparin Sodium (Porcine) 5,000 units 12/01/24 21:00 12/08/24 09:37 Heparin Sodium 5,000 Units/Ml Vial SUB-Q 5,000 units Q12HR [facility] Administration Piperacillin/Tazobactam/Dextrose 3.375 gm in 50 mls @ 100 mls/hr 12/01/24 08:00 12/08/24 09:34 Zosyn 3.375 Gm/Ns 50 Ml IVPB 100 mls/hr Q6H [facility] Administration Levetiracetam 1,000 mg 12/01/24 13:55 12/08/24 09:36 Levetiracetam 500 Mg Tablet PO 1,000 mg Q12HR [facility] Administration Lisinopril 5 mg 12/02/24 09:00 12/08/24 09:36 Lisinopril 5 Mg Tablet PO 5 mg DAILY [facility] Administration Lorazepam 0.5 mg 12/01/24 13:11 12/06/24 08:40 Lorazepam (*Crx) 0.5 Mg Tablet BY MOUTH 0.5 mg DAILY PRN Administration anxiety Metoprolol Tartrate 50 mg 12/01/24 13:55 12/08/24 09:35 Metoprolol Tartrate 50 Mg Tab PO 50 mg Q12HR [facility] Administration Polyethylene Glycol 17 gm 12/03/24 10:59 Polyethylene Glycol 3350 17 Gm Powd.Pack PO QAM PRN Constipation Quetiapine Fumarate 25 mg 12/01/24 13:00 12/08/24 09:37 Quetiapine Fumarate 25 Mg Tablet PO 25 mg 0900,1300,2100 [facility] Administration Quetiapine Fumarate 100 mg 12/01/24 13:00 12/08/24 09:37 Quetiapine Fumarate 100 Mg Tablet PO 100 mg 0900,1300,2100 [facility] Administration Senna/Docusate Sodium 1 tab 12/01/24 13:40 12/08/24 09:38 Senna/Docusate Sodium Tablet PO Not Given DAILY [facility] Sodium Zirconium Cyclosilicate 10 gm 12/01/24 10:00 12/08/24 12:02 Sodium Zirconium Cyclosilicate 10 Gm Powd.Pack PO 10 gm DAILY@1000 [facility] Administration Tamsulosin HCl 0.4 mg 12/01/24 21:00 12/07/24 20:33 Tamsulosin Hcl 0.4 Mg Capsule PO 0.4 mg HS [facility] Administration Tramadol HCl 50 mg 12/01/24 13:11 12/08/24 05:34 Tramadol Hcl (*Crx) 50 Mg Tablet PO 50 mg BID PRN Administration pain Trazodone HCl 50 mg 12/01/24 21:00 12/07/24 20:32 Trazodone Hcl 50 Mg Tablet PO 50 mg HS [facility] Administration Venlafaxine HCl 150 mg 12/01/24 13:45 12/08/24 09:36 Venlafaxine Hcl Xr 75 Mg Cap.Er.24h PO 150 mg DAILY [facility] Administration Vitamin D 2,000 units 12/02/24 09:00 12/08/24 09:35 Cholecalciferol 1,000 Units Tablet PO 2,000 units DAILY [facility] Administration Radiology Results: ITS Impressions Tibia/Fibula X-Ray 11/30/24 16:48 IMPRESSION: 1. No evidence of osteomyelitis. Lower Extremity CTA 11/30/24 23:06 IMPRESSION: 1. 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 Knee X-Ray 12/05/24 21:35 IMPRESSION: Degenerative disease, without acute fracture or dislocation. Labs Labs: Laboratory Results - last 24 hr 12/08/24 06:39 WBC 6.7 RBC 3.39 L Hgb 9.4 L Hct 30.3 L MCV 89.4 MCH 27.7 MCHC 31.0 L RDW 16.4 H Plt Count 193 MPV 9.5 Immature Gran % (Auto) 0.6 H Neut % (Auto) 54.0 Lymph % (Auto) 26.5 Davidson % (Auto) 7.2 Eos % (Auto) 10.8 H Baso % (Auto) 0.9 Lymph # (Auto) 1.76 Davidson # (Auto) 0.5 Eos # (Auto) 0.7 H Baso # (Auto) 0.1 Abs Immat Gran (auto) 0.04 H Absolute Neuts (auto) 3.6 Absolute Nucleated RBC 0.000 Nucleated RBC % 0.0 Sodium 143 Potassium 4.0 Chloride 112 H Carbon Dioxide 23 Anion Gap 8 BUN 13 Creatinine 1.86 H Estim Creat Clear Calc 48 Estimated GFR 39 L Glucose 84 Calcium 8.5 Magnesium 1.6 Total Bilirubin 0.5 AST 22 ALT 18 Alkaline Phosphatase 72 Total Protein 7.0 Albumin 2.9 L
[2024-12-08 16:12] VITALS: BP 158/94; PULSE 71; RESP 16; TEMP 36.4; O2SAT 96
[2024-12-08 20:00] VITALS: PULSE 68; RESP 16; O2SAT 96
[2024-12-08 20:29] VITALS: PULSE 68
[2024-12-08] MEDS: traZODone HCL 50 MG TABLET PO (20:29)
[2024-12-08] MEDS: ATORVASTATIN 40 MG TABLET PO (20:29)
[2024-12-08] MEDS: ALPRAZolam (*CRX) 0.5 MG TABLET PO (20:29)
[2024-12-08] MEDS: TAMSULOSIN HCL 0.4 MG CAPSULE PO (20:30)
[2024-12-08] MEDS: LORazepam (*CRX) 0.5 MG TABLET BY MOUTH (20:30)
[2024-12-08 20:35] VITALS: BP 144/92; PULSE 71; RESP 20; TEMP 36.9; O2SAT 99
[2024-12-09] MEDS: PIPERACILLN/TAZ 3.375GM/NS50ML 3.375 GM/50 ML BAG IVPB ×4 (01:20→21:02)
[2024-12-09 05:08] VITALS: BP 165/93; PULSE 98; RESP 20; TEMP 36.5; O2SAT 98
[2024-12-09 06:33] LABS: Basophils Percent Auto 0.7 % (0.2-1.2); Eosinophils Absolute Auto 0.3 K/mm3 (0-0.3); Eosinophils Percent Auto 5.7 % (0-4.4); Hematocrit 31.5 % (42.0-52.0); Immature Granulocyte Absolute 0.04 K/mm3 (0.00-0.031); Immature Granulocyte Percent A 0.7 % (0-0.5); Lymphocytes Absolute Auto 1.78 K/mm3 (0.9-3.2); Lymphocytes Percent Auto 29.7 % (18.3-44.2); Mean Corpuscular HGB Conc 31.7 g/dl (32-36); Mean Corpuscular Hemoglobin 28.7 pg (26-34); Mean Corpuscular Volume 90.5 fl (80-100); Mean Platelet Volume 9.9 fl (7.4-10.4); Monocytes Absolute Auto 0.5 K/mm3 (0.1-0.6); Monocytes Percent Auto 8.2 % (2.6-8.5); Neutrophils Absolute Auto 3.3 K/mm3 (1.3-6.7); Platelet Count Result 190 k/mm3 (150-375); Red Blood Count 3.48 M/mm3 (4.6-6.20); Red Cell Distribution Width 16.6 % (11.5-14.5)
[2024-12-09 06:43] LABS: Alanine Aminotransferase 20 U/L (6-50); Albumin Level 3.1 g/dL (3.5-5.1); Alkaline Phosphatase 74 U/L (38-126); Anion Gap 7 mmol/L (4-12); Aspartate Amino Transferase 24 U/L (17-59); Bilirubin,Total 0.5 mg/dL (0.2-1.3); Blood Urea Nitrogen 16 mg/dL (9-20); Calcium 8.5 mg/dL (8.4-10.2); Carbon Dioxide 25 mmol/L (22-30); Chloride 110 mmol/L (98-107); Estimated CRCL calculation 46 ml/min; Estimated Glomerular Filt Rate 37; Glucose 82 mg/dL (65-110); Magnesium 1.7 mg/dL (1.6-2.3); Potassium 3.8 mmol/L (3.4-5.0); Sodium 142 mmol/L (137-145)
[2024-12-09] MEDS: DIVALPROEX SODIUM DR 250 MG TABEC 500 MG PO (08:09)
[2024-12-09] MEDS: CHOLECALCIFEROL 1,000 UNITS TABLET 2000 UNITS PO (08:10)
[2024-12-09] MEDS: ASPIRIN 81 MG CHEWABLE TABLET PO (08:10)
[2024-12-09] MEDS: FLUoxetine HCL 20 MG CAPSULE 60 MG PO (08:10)
[2024-12-09] MEDS: HEPARIN SODIUM 5,000 UNITS/ML VIAL 5000 UNITS SUB-Q ×2 (08:10→21:03)
[2024-12-09] MEDS: lisinopriL 5 MG TABLET PO (08:10)
[2024-12-09] MEDS: FAMOTIDINE 20 MG TABLET PO (08:10)
[2024-12-09] MEDS: ASCORBIC ACID 500 MG TABLET PO (08:10)
[2024-12-09] MEDS: VENLAFAXINE HCL XR 75 MG CAP.ER.24H 150 MG PO (08:10)
[2024-12-09] MEDS: QUEtiapine FUMARATE 25 MG TABLET PO ×3 (08:10→21:02)
[2024-12-09] MEDS: LORazepam (*CRX) 0.5 MG TABLET BY MOUTH (08:10)
[2024-12-09] MEDS: GABAPENTIN 100 MG CAPSULE PO ×3 (08:11→16:56)
[2024-12-09] MEDS: SENNA/DOCUSATE SODIUM TABLET 1 TAB PO (08:11)
[2024-12-09] MEDS: busPIRone HCL 10 MG TABLET PO ×3 (08:11→16:56)
[2024-12-09] MEDS: CYANOCOBALAMIN 500 MCG TABLET PO (08:11)
[2024-12-09] MEDS: levETIRAcetam 500 MG TABLET 1000 MG PO ×2 (08:11→21:02)
[2024-12-09] MEDS: METOPROLOL TARTRATE 50 MG TAB PO ×2 (08:11→21:02)
[2024-12-09] MEDS: QUEtiapine FUMARATE 100 MG TABLET PO ×3 (08:11→21:02)
[2024-12-09] MEDS: COLLAGENASE OINT 30 GM TUBE 1 APPLIC TOPICAL (08:11)
[2024-12-09] MEDS: SODIUM ZIRCONIUM CYCLOSILICATE 10 GM POWD.PACK PO (10:11)
--- NOTE | 2024-12-09 10:47 | P.PNIM_ITS ---
Progress Note: A&P Assessment and Plan (1) Peripheral artery disease: Code(s): I73.9 - Peripheral vascular disease, unspecified Status: Acute Assessment and Plan: * CTA Left LE: FINDINGS: There is no significant stenosis of the included portion of left superficial femoral artery. There is severe stenosis of the above-knee popliteal artery. There is no significant stenosis of the tibioperoneal trunk, anterior tibial artery, posterior tibial artery, or the peroneal artery. Again seen is an 8 mm radiopaque foreign body in the musculature of the foot. IMPRESSION: 1. 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 * Dr. Haresh Laura Vascular at [facility] on 11/29/24. Per the note patient will need a LAIF and an RAIF but she is unsure when he is supposed to be seen next. * Called and presented patient to their transfer center, waiting to hear back. * Patient is receiving Aspirin 81 mg PO daily and Atorvastatin 40 mg PO at bedtime. * Called Dr. Haresh Laura office today 12/03/24, awaiting a call back from Dr. Laura to discuss patient and plan. Patient will need scheduled for further testing per Dr. Laura office. 12/05/24: * Pt currently awaiting bed assignment and transfer to [facility] for vascular evaluation. 12/07/24: * Continuing to wait for transfer at this time. 12/08/24 D/w with Vascular MD at [facility] today no need for any urgent transfer can treat wound in hospital and DC to vascular follow up OPD Vascular MDwith discuss with DR Laura to bring vascular surgery date forward No need to transfer pt at this stage as this a chronic PAD problem 12/09/24: Treat for leg wound in hospital and DC soon in 1-2 days time pt wants to DC back home does not want to go back to the facility (2) Wound of left lower extremity: Code(s): S81.802A - Unspecified open wound, left lower leg, initial encounter Status: Acute Assessment and Plan: * Zosyn 3.375 gm IVPB q 6. * Vancomycin 1,500 mg IVPB daily stopped on 12/04/24. * Renally dose. * Wound care consult. * LLE leg wound culture grew pseudomonas aeruginosa and staphylococcus aureus. * Santyl to wound. * Redness improving and decreasing inside of area marked. * Monitor pulses. * Pain control. * improving. 12/05/24: * Continue IV abx * Continue wound care * Overall improving condition. 12/07/24: * Continue current care and treatment. 12/08 continue current care 12/09: continue current care with IV zosyn day 8 continue wound care DC home with wound care soon in 1-2 days time rpt BC are negative wound grew pseudomonas can transition to levaquin on dc with wound care (3) Seizure disorder: Code(s): G40.909 - Epilepsy, unspecified, not intractable, without status epilepticus Status: Chronic Assessment and Plan: * Levetiracetam 1,000 mg PO q 12. * Depakote 500 mg PO daily. 12/05/24: * Continue home meds 12/07/24: * No seizure activity since being admitted. 12/08 pt is stable 12/09 no seizures since admission (4) Hyperkalemia: Code(s): E87.5 - Hyperkalemia Status: Inactive Assessment and Plan: * Potassium 4.1, improved. 12/05/24: * Resolved 12/09: stable (5) MARIANGEL (acute kidney injury): Code(s): N17.9 - Acute kidney failure, unspecified Status: Acute Assessment and Plan: * Creatinine 1.86 on admission, last check, 1.78. * Received a liter of normal saline in the ER. * Start NS @ 75 ml/hr * Encourage oral intake. * Monitor labs. 12/05/24: * Stable renal function at 1.77 Cr * Continue to monitor as pt is on Vancomycin. 12/07/24: * Renal function remains stable at this time. 12/08; bmp stable at 1.8 12/09 bmp is 1.96 Subjective Date/time seen: 12/09/24 10:47 Interval history: 49 year old male that currently resides at [facility]. Patient is a poor historian. Spoke with nurse at [facility]. She stated that patient was seen by Dr. Laura she thought was at [place], I called and patient seen by Dr. Haresh Laura Vascular at [facility] on 11/29/24. Per the note patient will need a LAIF and an RAIF but she is unsure when he is supposed to be seen next. Spoke with [facility] and verified that patient seen Dr. Laura there on 11/29/24. Called and presented patient to their transfer center, waiting to hear back. Patient told me year is 2004, he is at the hospital and it is September. Patient reports that he usually gets around in a wheelchair. Patient reports pain in left knees is a 6 , sharp, and occasional. Pt currently here for leg wound likely due to poor blood perfusion and severe PAD in both legs pt is due to go have surgery under DR Laura - january 10 and january 31 D/w with Vascular MD at [facility] today no need for any urgent transfer can treat wound in hospital and DC to vascular follow up OPD Vascular MD with discuss with DR Laura to bring vascular surgery date forward No need to transfer pt at this stage as this a chronic PAD problem Treat for leg wound in hospital and DC soon in 1-2 days time pt wants to DC back home does not want to go back to the facility Review of Systems Review of Systems: Pt having ongoing leg pains chronic problem for him Exam Const: General: comfortable, no acute distress and uncomfortable Eyes: Pupils: Equal, round and reactive pupils present Resp: Effort & Inspection: normal respiratory effort Auscultation: clear to auscultation bilaterally Cardio: Rate: regular rate Rhythm: regular rhythm GI: Auscultation: normal bowel sounds Skin: Other: 1+ palpable dorsalis pedis and left popl iteal. Bilateral feet warm to touch. Several stage 1-3 ulcerations to the LLE with surrounding erythema, warmth and tenderness. Redness improving and decreasing inside of area marked. Malodorous creamy green drainage. Neuro: Cranial nerves: Yes Equal, round and reactive pupils present Speech: normal speech Extrem: General: no pedal edema Other: 1+ palpable dorsalis pedis and left popl iteal. Bilateral feet warm to touch. Several stage 1-3 ulcerations to the LLE with surrounding erythema, warmth and tenderness. Redness improving and decreasing inside of area marked. wound is improving Psych: Mental Status: mental status grossly normal Affect: normal affect Other: Teary at times when he talks about family, reports missing his family. A& Ox2. Memory impaired. Objective Data Vital Signs Vital Signs: Vital Signs - 24 hr 12/08/24 16:12 12/08/24 20:00 12/08/24 20:29 Temperature 36.4 C L Pulse Rate 71 68 68 Respiratory Rate 16 16 Blood Pressure 158/94 H Pulse Oximetry 96 96 Oxygen Delivery Room Air 12/08/24 20:35 12/09/24 05:08 12/09/24 08:00 Temperature 36.9 C 36.5 C Pulse Rate 71 98 Respiratory Rate 20 20 Blood Pressure 144/92 H 165/93 H Pulse Oximetry 99 98 Oxygen Delivery Room Air Intake/Output Intake/Output: Intake & Output 12/06/24 12/07/24 12/08/24 12/09/24 23:59 23:59 23:59 23:59 Intake Total 2500 1430 1280 720 Output Total 800 1975 700 Balance 1700 -545 580 720 Meds/Results Medications: Active Medications Generic Name Dose Route Start Last Admin Trade Name Freq PRN Reason Stop Dose Admin Acetaminophen 650 mg 12/05/24 22:53 12/08/24 17:48 Acetaminophen 325 Mg Tablet PO 650 mg Q6H PRN Administration Mild Pain (1-3) or Fever Albuterol 2 puff 12/01/24 11:32 Albuterol Sulfate (*Sp) Aerosol 1 Puff INHALATION Q6H PRN Dyspnea Alprazolam 0.5 mg 12/01/24 11:39 12/08/24 20:29 Alprazolam (*Crx) 0.5 Mg Tablet PO 0.5 mg HS PRN Administration Anxiety Ascorbic Acid 500 mg 12/01/24 13:45 12/09/24 08:10 Ascorbic Acid 500 Mg Tablet PO 500 mg DAILY ALKA Administration Aspirin 81 mg 12/01/24 13:40 12/09/24 08:10 Aspirin 81 Mg Chewable Tablet PO 81 mg DAILY ALKA Administration Atorvastatin Calcium 40 mg 12/01/24 21:00 12/08/24 20:29 Atorvastatin 40 Mg Tablet PO 40 mg HS ALKA Administration Buspirone HCl 10 mg 12/01/24 13:00 12/09/24 08:11 Buspirone Hcl 10 Mg Tablet PO 10 mg TID ALKA Administration Collagenase 1 applic 12/01/24 13:30 12/09/24 08:11 Collagenase Oint 30 Gm Tube TOPICAL 1 applic QAM ALKA Administration Cyanocobalamin 500 mcg 12/01/24 13:40 12/09/24 08:11 Cyanocobalamin 500 Mcg Tablet PO 500 mcg DAILY ALKA Administration Divalproex Sodium 500 mg 12/01/24 13:50 12/09/24 08:[address] 250 Mg Tabec PO 500 mg DAILY ALKA Administration Famotidine 20 mg 12/01/24 13:40 12/09/24 08:10 Famotidine 20 Mg Tablet PO 20 mg DAILY ALKA Administration Fluoxetine HCl 60 mg 12/01/24 14:15 12/09/24 08:10 Fluoxetine Hcl 20 Mg Capsule PO 60 mg DAILY ALKA Administration Gabapentin 100 mg 12/01/24 13:00 12/09/24 08:11 Gabapentin 100 Mg Capsule PO 100 mg TID ALKA Administration Heparin Sodium (Porcine) 5,000 units 12/01/24 21:00 12/09/24 08:10 Heparin Sodium 5,000 Units/Ml Vial SUB-Q 5,000 units Q12HR ALKA Administration Piperacillin/Tazobactam/Dextrose 3.375 gm in 50 mls @ 100 mls/hr 12/01/24 08:00 12/09/24 08:09 Zosyn 3.375 Gm/Ns 50 Ml IVPB 100 mls/hr Q6H ALKA Administration Levetiracetam 1,000 mg 12/01/24 13:55 12/09/24 08:11 Levetiracetam 500 Mg Tablet PO 1,000 mg Q12HR ALKA Administration Lisinopril 5 mg 12/02/24 09:00 12/09/24 08:10 Lisinopril 5 Mg Tablet PO 5 mg DAILY ALKA Administration Lorazepam 0.5 mg 12/01/24 13:11 12/09/24 08:10 Lorazepam (*Crx) 0.5 Mg Tablet BY MOUTH 0.5 mg DAILY PRN Administration anxiety Metoprolol Tartrate 50 mg 12/01/24 13:55 12/09/24 08:11 Metoprolol Tartrate 50 Mg Tab PO 50 mg Q12HR ALKA Administration Polyethylene Glycol 17 gm 12/03/24 10:59 Polyethylene Glycol 3350 17 Gm Powd.Pack PO QAM PRN Constipation Quetiapine Fumarate 25 mg 12/01/24 13:00 12/09/24 08:10 Quetiapine Fumarate 25 Mg Tablet PO 25 mg 0900,1300,2100 ALKA Administration Quetiapine Fumarate 100 mg 12/01/24 13:00 12/09/24 08:11 Quetiapine Fumarate 100 Mg Tablet PO 100 mg 0900,1300,2100 ALKA Administration Senna/Docusate Sodium 1 tab 12/01/24 13:40 12/09/24 08:11 Senna/Docusate Sodium Tablet PO 1 tab DAILY ALKA Administration Sodium Zirconium Cyclosilicate 10 gm 12/01/24 10:00 12/08/24 12:02 Sodium Zirconium Cyclosilicate 10 Gm Powd.Pack PO 10 gm DAILY@1000 ALKA Administration Tamsulosin HCl 0.4 mg 12/01/24 21:00 12/08/24 20:30 Tamsulosin Hcl 0.4 Mg Capsule PO 0.4 mg HS ALKA Administration Tramadol HCl 50 mg 12/01/24 13:11 12/08/24 20:29 Tramadol Hcl (*Crx) 50 Mg Tablet PO 50 mg BID PRN Administration pain Trazodone HCl 50 mg 12/01/24 21:00 12/08/24 20:29 Trazodone Hcl 50 Mg Tablet PO 50 mg HS ALKA Administration Venlafaxine HCl 150 mg 12/01/24 13:45 12/09/24 08:10 Venlafaxine Hcl Xr 75 Mg Cap.Er.24h PO 150 mg DAILY ALKA Administration Vitamin D 2,000 units 12/02/24 09:00 12/09/24 08:10 Cholecalciferol 1,000 Units Tablet PO 2,000 units DAILY ALKA Administration Radiology Results: ITS Impressions Tibia/Fibula X-Ray 11/30/24 16:48 IMPRESSION: 1. No evidence of osteomyelitis. Lower Extremity CTA 11/30/24 23:06 IMPRESSION: 1. 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 Knee X-Ray 12/05/24 21:35 IMPRESSION: Degenerative disease, without acute fracture or dislocation. Labs Labs: Laboratory Results - last 24 hr 12/09/24 05:54 WBC 6.0 RBC 3.48 L Hgb 10.0 L Hct 31.5 L MCV 90.5 MCH 28.7 MCHC 31.7 L RDW 16.6 H Plt Count 190 MPV 9.9 Immature Gran % (Auto) 0.7 H Neut % (Auto) 55.0 Lymph % (Auto) 29.7 [place] % (Auto) 8.2 Eos % (Auto) 5.7 H Baso % (Auto) 0.7 Lymph # (Auto) 1.78 [place] # (Auto) 0.5 Eos # (Auto) 0.3 Baso # (Auto) 0.0 Abs Immat Gran (auto) 0.04 H Absolute Neuts (auto) 3.3 Absolute Nucleated RBC 0.000 Nucleated RBC % 0.0 Sodium 142 Potassium 3.8 Chloride 110 H Carbon Dioxide 25 Anion Gap 7 BUN 16 Creatinine 1.96 H Estim Creat Clear Calc 46 Estimated GFR 37 L Glucose 82 Calcium 8.5 Magnesium 1.7 Total Bilirubin 0.5 AST 24 ALT 20 Alkaline Phosphatase 74 Total Protein 7.0 Albumin 3.1 L
[2024-12-09 16:04] VITALS: BP 160/92; PULSE 74; RESP 20; TEMP 36.6; O2SAT 98
[2024-12-09 20:00] VITALS: PULSE 72; RESP 18; O2SAT 96
[2024-12-09 21:02] VITALS: PULSE 76
[2024-12-09] MEDS: ATORVASTATIN 40 MG TABLET PO (21:02)
[2024-12-09] MEDS: traZODone HCL 50 MG TABLET PO (21:02)
[2024-12-09] MEDS: traMADol HCL (*CRX) 50 MG TABLET PO (21:03)
[2024-12-09] MEDS: TAMSULOSIN HCL 0.4 MG CAPSULE PO (21:03)
[2024-12-09] MEDS: ALPRAZolam (*CRX) 0.5 MG TABLET PO (21:03)
[2024-12-09 22:00] VITALS: BP 181/94; PULSE 72; RESP 18; TEMP 36.1; O2SAT 96
[2024-12-10] MEDS: PIPERACILLN/TAZ 3.375GM/NS50ML 3.375 GM/50 ML BAG IVPB ×2 (01:40→09:13)
[2024-12-10] MEDS: traMADol HCL (*CRX) 50 MG TABLET PO ×2 (05:22→17:36)
[2024-12-10 06:00] VITALS: BP 141/78; PULSE 68; RESP 18; TEMP 36.1; O2SAT 96
[2024-12-10 06:22] LABS: Hematocrit 30.4 % (42.0-52.0); Hemoglobin 9.8 g/dL (14.0-18.0); Mean Corpuscular HGB Conc 32.2 g/dl (32-36); Mean Corpuscular Hemoglobin 28.5 pg (26-34); Mean Corpuscular Volume 88.4 fl (80-100); Mean Platelet Volume 9.6 fl (7.4-10.4); Platelet Count Result 185 k/mm3 (150-375); Red Blood Count 3.44 M/mm3 (4.6-6.20); Red Cell Distribution Width 16.2 % (11.5-14.5)
[2024-12-10 06:38] LABS: Anion Gap 8 mmol/L (4-12); Blood Urea Nitrogen 22 mg/dL (9-20); Calcium 8.2 mg/dL (8.4-10.2); Carbon Dioxide 24 mmol/L (22-30); Chloride 110 mmol/L (98-107); Estimated CRCL calculation 45 ml/min; Estimated Glomerular Filt Rate 35; Glucose 88 mg/dL (65-110); Potassium 3.6 mmol/L (3.4-5.0); Sodium 142 mmol/L (137-145)
[2024-12-10] MEDS: VENLAFAXINE HCL XR 75 MG CAP.ER.24H 150 MG PO (09:13)
[2024-12-10] MEDS: CYANOCOBALAMIN 500 MCG TABLET PO (09:13)
[2024-12-10] MEDS: ASCORBIC ACID 500 MG TABLET PO (09:13)
[2024-12-10] MEDS: HEPARIN SODIUM 5,000 UNITS/ML VIAL 5000 UNITS SUB-Q ×2 (09:14→20:37)
[2024-12-10] MEDS: SENNA/DOCUSATE SODIUM TABLET 1 TAB PO (09:14)
[2024-12-10] MEDS: DIVALPROEX SODIUM DR 250 MG TABEC 500 MG PO (09:14)
[2024-12-10] MEDS: CHOLECALCIFEROL 1,000 UNITS TABLET 2000 UNITS PO (09:14)
[2024-12-10] MEDS: FLUoxetine HCL 20 MG CAPSULE 60 MG PO (09:14)
[2024-12-10] MEDS: levETIRAcetam 500 MG TABLET 1000 MG PO ×2 (09:14→20:37)
[2024-12-10] MEDS: busPIRone HCL 10 MG TABLET PO ×3 (09:14→17:31)
[2024-12-10] MEDS: lisinopriL 5 MG TABLET PO (09:14)
[2024-12-10] MEDS: FAMOTIDINE 20 MG TABLET PO (09:14)
[2024-12-10] MEDS: ASPIRIN 81 MG CHEWABLE TABLET PO (09:15)
[2024-12-10] MEDS: METOPROLOL TARTRATE 50 MG TAB PO ×2 (09:15→20:38)
[2024-12-10] MEDS: GABAPENTIN 100 MG CAPSULE PO ×3 (09:15→17:31)
[2024-12-10] MEDS: QUEtiapine FUMARATE 25 MG TABLET PO ×3 (09:19→20:38)
[2024-12-10] MEDS: SODIUM ZIRCONIUM CYCLOSILICATE 10 GM POWD.PACK PO (09:19)
[2024-12-10] MEDS: QUEtiapine FUMARATE 100 MG TABLET PO ×3 (09:19→20:38)
--- NOTE | 2024-12-10 09:48 | PCNWS ---
Weekly nutritional screen. Patient is tolerating current heart healthy diet with adequate intake 50-100%. No weight loss reported. No nutritional recommendations at this time.
--- NOTE | 2024-12-10 10:11 | P.PNIM_ITS ---
Progress Note: A&P Assessment and Plan (1) Peripheral artery disease: Code(s): I73.9 - Peripheral vascular disease, unspecified Status: Acute Assessment and Plan: * CTA Left LE: FINDINGS: There is no significant stenosis of the included portion of left superficial femoral artery. There is severe stenosis of the above-knee popliteal artery. There is no significant stenosis of the tibioperoneal trunk, anterior tibial artery, posterior tibial artery, or the peroneal artery. Again seen is an 8 mm radiopaque foreign body in the musculature of the foot. IMPRESSION: 1. 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 * Dr. Haresh Laura Vascular at [facility] on 11/29/24. Per the note patient will need a LAIF and an RAIF but she is unsure when he is supposed to be seen next. * Called and presented patient to their transfer center, waiting to hear back. * Patient is receiving Aspirin 81 mg PO daily and Atorvastatin 40 mg PO at bedtime. * Called Dr. Haresh Laura office today 12/03/24, awaiting a call back from Dr. Laura to discuss patient and plan. Patient will need scheduled for further testing per Dr. Laura office. 12/05/24: * Pt currently awaiting bed assignment and transfer to [facility] for vascular evaluation. 12/07/24: * Continuing to wait for transfer at this time. 12/08/24 D/w with Vascular MD at [facility] today no need for any urgent transfer can treat wound in hospital and DC to vascular follow up OPD Vascular MDwith discuss with DR Laura to bring vascular surgery date forward No need to transfer pt at this stage as this a chronic PAD problem 12/09/24: Treat for leg wound in hospital and DC soon in 1-2 days time pt wants to DC back home does not want to go back to the facility 12/10 levaquin po-working with pharm ID fir duration of therapy (2) Wound of left lower extremity: Code(s): S81.802A - Unspecified open wound, left lower leg, initial encounter Status: Acute Assessment and Plan: * Zosyn 3.375 gm IVPB q 6. * Vancomycin 1,500 mg IVPB daily stopped on 12/04/24. * Renally dose. * Wound care consult. * LLE leg wound culture grew pseudomonas aeruginosa and staphylococcus aureus. * Santyl to wound. * Redness improving and decreasing inside of area marked. * Monitor pulses. * Pain control. * improving. 12/05/24: * Continue IV abx * Continue wound care * Overall improving condition. 12/07/24: * Continue current care and treatment. 12/08 continue current care 12/09: continue current care with IV zosyn day 8 continue wound care DC home with wound care soon in 1-2 days time rpt BC are negative wound grew pseudomonas can transition to levaquin on dc with wound care see above (3) Seizure disorder: Code(s): G40.909 - Epilepsy, unspecified, not intractable, without status epilepticus Status: Chronic Assessment and Plan: * Levetiracetam 1,000 mg PO q 12. * Depakote 500 mg PO daily. 12/05/24: * Continue home meds 12/07/24: * No seizure activity since being admitted. 12/08 pt is stable 12/09 no seizures since admission (4) Hyperkalemia: Code(s): E87.5 - Hyperkalemia Status: Inactive Assessment and Plan: * Potassium 4.1, improved. 12/05/24: * Resolved 12/09: stable (5) MARIANGEL (acute kidney injury): Code(s): N17.9 - Acute kidney failure, unspecified Status: Acute Assessment and Plan: * Creatinine 1.86 on admission, last check, 1.78. * Received a liter of normal saline in the ER. * Start NS @ 75 ml/hr * Encourage oral intake. * Monitor labs. 12/05/24: * Stable renal function at 1.77 Cr * Continue to monitor as pt is on Vancomycin. 12/07/24: * Renal function remains stable at this time. 12/08; bmp stable at 1.8 12/09 bmp is 1.96 Time Spent With Patient Time with patient: 25 - 35 minutes Subjective Date/time seen: 12/10/24 10:11 Interval history: 49 year old male that currently resides at [facility]. Patient is a poor historian. Spoke with nurse at [facility]. She stated that patient was seen by Dr. Laura she thought was at [place], I called and patient seen by Dr. Haresh Laura Vascular at [facility] on 11/29/24. Per the note patient will need a LAIF and an RAIF but she is unsure when he is supposed to be seen next. Spoke with [facility] and verified that patient seen Dr. Laura there on 11/29/24. Called and presented patient to their transfer center, waiting to hear back. Patient told me year is 2004, he is at the hospital and it is September. Patient reports that he usually gets around in a wheelchair. Patient reports pain in left knees is a 6 , sharp, and occasional. Pt currently here for leg wound likely due to poor blood perfusion and severe PAD in both legs pt is due to go have surgery under DR Laura - january 10 and january 31 D/w with Vascular MD at [facility] today no need for any urgent transfer can treat wound in hospital and DC to vascular follow up OPD Vascular MD with discuss with DR Laura to bring vascular surgery date forward No need to transfer pt at this stage as this a chronic PAD problem Treat for leg wound in hospital and DC soon in 1-2 days time pt wants to DC back home does not want to go back to the facility Pt is seen and examined. He is comfortable. working with ID pharm for duration of antibiotics Review of Systems Review of Systems: Pt having ongoing leg pains chronic problem for him All systems reviewed & are unremarkable except as noted in HPI and below Exam Const: General: comfortable, no acute distress and uncomfortable Eyes: Sclera: sclerae normal Pupils: Equal, round and reactive pupils present Resp: Effort & Inspection: normal respiratory effort Auscultation: clear to auscultation bilaterally Cardio: Rate: regular rate Rhythm: regular rhythm GI: Auscultation: normal bowel sounds Skin: Other: 1+ palpable dorsalis pedis and left popl iteal. Bilateral feet warm to touch. Several stage 1-3 ulcerations to the LLE with surrounding erythema, warmth and tenderness. Redness improving and decreasing inside of area marked. Malodorous creamy green drainage. Neuro: Cranial nerves: Yes Equal, round and reactive pupils present Speech: normal speech Extrem: General: no pedal edema Other: 1+ palpable dorsalis pedis and left popl iteal. Bilateral feet warm to touch. Several stage 1-3 ulcerations to the LLE with surrounding erythema, warmth and tenderness. Redness improving and decreasing inside of area marked. wound is improving Psych: Mental Status: mental status grossly normal Affect: normal affect Other: Teary at times when he talks about family, reports missing his family. A& Ox2. Memory impaired. Objective Data Vital Signs Vital Signs: Vital Signs - 24 hr 12/09/24 16:04 12/09/24 20:00 12/09/24 21:02 Temperature 97.9 F Pulse Rate 74 72 76 Respiratory Rate 20 18 Blood Pressure 160/92 H Pulse Oximetry 98 96 Oxygen Delivery Room Air 12/09/24 22:00 12/10/24 06:00 Temperature 97.0 F L 97.0 F L Pulse Rate 72 68 Respiratory Rate 18 18 Blood Pressure 181/94 H 141/78 H Pulse Oximetry 96 96 Oxygen Delivery Intake/Output Intake/Output: Intake & Output 12/07/24 12/08/24 12/09/24 12/10/24 23:59 23:59 23:59 23:59 Intake Total 1430 1280 1120 290 Output Total 1975 700 Balance -964 202 4634 290 Meds/Results Medications: Active Medications Generic Name Dose Route Start Last Admin Trade Name Freq PRN Reason Stop Dose Admin Acetaminophen 650 mg 12/05/24 22:53 12/08/24 17:48 Acetaminophen 325 Mg Tablet PO 650 mg Q6H PRN Administration Mild Pain (1-3) or Fever Albuterol 2 puff 12/01/24 11:32 Albuterol Sulfate (*Sp) Aerosol 1 Puff INHALATION Q6H PRN Dyspnea Alprazolam 0.5 mg 12/01/24 11:39 12/09/24 21:03 Alprazolam (*Crx) 0.5 Mg Tablet PO 0.5 mg HS PRN Administration Anxiety Ascorbic Acid 500 mg 12/01/24 13:45 12/10/24 09:13 Ascorbic Acid 500 Mg Tablet PO 500 mg DAILY ALKA Administration Aspirin 81 mg 12/01/24 13:40 12/10/24 09:15 Aspirin 81 Mg Chewable Tablet PO 81 mg DAILY ALKA Administration Atorvastatin Calcium 40 mg 12/01/24 21:00 12/09/24 21:02 Atorvastatin 40 Mg Tablet PO 40 mg HS ALKA Administration Buspirone HCl 10 mg 12/01/24 13:00 12/10/24 09:14 Buspirone Hcl 10 Mg Tablet PO 10 mg TID ALKA Administration Collagenase 1 applic 12/01/24 13:30 12/10/24 09:20 Collagenase Oint 30 Gm Tube TOPICAL Not Given QAM [facility] Cyanocobalamin 500 mcg 12/01/24 13:40 12/10/24 09:13 Cyanocobalamin 500 Mcg Tablet PO 500 mcg DAILY ALKA Administration Divalproex Sodium 500 mg 12/01/24 13:50 12/10/24 09:[address] 250 Mg Tabec PO 500 mg DAILY ALKA Administration Famotidine 20 mg 12/01/24 13:40 12/10/24 09:14 Famotidine 20 Mg Tablet PO 20 mg DAILY ALKA Administration Fluoxetine HCl 60 mg 12/01/24 14:15 12/10/24 09:14 Fluoxetine Hcl 20 Mg Capsule PO 60 mg DAILY ALKA Administration Gabapentin 100 mg 12/01/24 13:00 12/10/24 09:15 Gabapentin 100 Mg Capsule PO 100 mg TID ALKA Administration Heparin Sodium (Porcine) 5,000 units 12/01/24 21:00 12/10/24 09:14 Heparin Sodium 5,000 Units/Ml Vial SUB-Q 5,000 units Q12HR ALKA Administration Piperacillin/Tazobactam/Dextrose 3.375 gm in 50 mls @ 100 mls/hr 12/01/24 08:00 12/10/24 09:13 Zosyn 3.375 Gm/Ns 50 Ml IVPB 100 mls/hr Q6H ALKA Administration Levetiracetam 1,000 mg 12/01/24 13:55 12/10/24 09:14 Levetiracetam 500 Mg Tablet PO 1,000 mg Q12HR ALKA Administration Lisinopril 5 mg 12/02/24 09:00 12/10/24 09:14 Lisinopril 5 Mg Tablet PO 5 mg DAILY ALKA Administration Lorazepam 0.5 mg 12/01/24 13:11 12/09/24 08:10 Lorazepam (*Crx) 0.5 Mg Tablet BY MOUTH 0.5 mg DAILY PRN Administration anxiety Metoprolol Tartrate 50 mg 12/01/24 13:55 12/10/24 09:15 Metoprolol Tartrate 50 Mg Tab PO 50 mg Q12HR ALKA Administration Polyethylene Glycol 17 gm 12/03/24 10:59 Polyethylene Glycol 3350 17 Gm Powd.Pack PO QAM PRN Constipation Quetiapine Fumarate 25 mg 12/01/24 13:00 12/10/24 09:19 Quetiapine Fumarate 25 Mg Tablet PO 25 mg 0900,1300,2100 ALKA Administration Quetiapine Fumarate 100 mg 12/01/24 13:00 12/10/24 09:19 Quetiapine Fumarate 100 Mg Tablet PO 100 mg 0900,1300,2100 ALKA Administration Senna/Docusate Sodium 1 tab 12/01/24 13:40 12/10/24 09:14 Senna/Docusate Sodium Tablet PO 1 tab DAILY ALKA Administration Sodium Zirconium Cyclosilicate 10 gm 12/01/24 10:00 12/10/24 09:19 Sodium Zirconium Cyclosilicate 10 Gm Powd.Pack PO 10 gm DAILY@1000 [facility] Administration Tamsulosin HCl 0.4 mg 12/01/24 21:00 12/09/24 21:03 Tamsulosin Hcl 0.4 Mg Capsule PO 0.4 mg HS ALKA Administration Tramadol HCl 50 mg 12/01/24 13:11 12/10/24 05:22 Tramadol Hcl (*Crx) 50 Mg Tablet PO 50 mg BID PRN Administration pain Trazodone HCl 50 mg 12/01/24 21:00 12/09/24 21:02 Trazodone Hcl 50 Mg Tablet PO 50 mg HS ALKA Administration Venlafaxine HCl 150 mg 12/01/24 13:45 12/10/24 09:13 Venlafaxine Hcl Xr 75 Mg Cap.Er.24h PO 150 mg DAILY ALKA Administration Vitamin D 2,000 units 12/02/24 09:00 12/10/24 09:14 Cholecalciferol 1,000 Units Tablet PO 2,000 units DAILY ALKA Administration Radiology Results: ITS Impressions Tibia/Fibula X-Ray 11/30/24 16:48 IMPRESSION: 1. No evidence of osteomyelitis. Lower Extremity CTA 11/30/24 23:06 IMPRESSION: 1. 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 Knee X-Ray 12/05/24 21:35 IMPRESSION: Degenerative disease, without acute fracture or dislocation. Labs Labs: Laboratory Results - last 24 hr 12/10/24 06:07 WBC 7.0 RBC 3.44 L Hgb 9.8 L Hct 30.4 L MCV 88.4 MCH 28.5 MCHC 32.2 RDW 16.2 H Plt Count 185 MPV 9.6 Sodium 142 Potassium 3.6 Chloride 110 H Carbon Dioxide 24 Anion Gap 8 BUN 22 H Creatinine 2.02 H Estim Creat Clear Calc 45 Estimated GFR 35 L Glucose 88 Calcium 8.2 L Quality VTE Prophylaxis VTE prophylaxis: pharmacologic ordered
[2024-12-10 14:00] VITALS: BP 157/92; PULSE 72; RESP 18; TEMP 37.2; O2SAT 98
[2024-12-10] MEDS: levoFLOXacin 750 MG TABLET PO (17:31)
[2024-12-10 20:00] VITALS: PULSE 71; RESP 18; O2SAT 99
[2024-12-10 20:38] VITALS: PULSE 76
[2024-12-10] MEDS: traZODone HCL 50 MG TABLET PO (20:38)
[2024-12-10] MEDS: ATORVASTATIN 40 MG TABLET PO (20:38)
[2024-12-10] MEDS: LORazepam (*CRX) 0.5 MG TABLET BY MOUTH (20:38)
[2024-12-10] MEDS: ALPRAZolam (*CRX) 0.5 MG TABLET PO (20:38)
[2024-12-10] MEDS: TAMSULOSIN HCL 0.4 MG CAPSULE PO (20:38)
[2024-12-10] MEDS: ACETAMINOPHEN 325 MG TABLET 650 MG PO (20:38)
[2024-12-10 21:51] VITALS: BP 146/90; PULSE 71; RESP 18; TEMP 36.2; O2SAT 99
[2024-12-11] MEDS: traMADol HCL (*CRX) 50 MG TABLET PO (04:31)
[2024-12-11 05:22] VITALS: BP 147/90; PULSE 68; RESP 18; TEMP 36.1; O2SAT 100
[2024-12-11] MEDS: HEPARIN SODIUM 5,000 UNITS/ML VIAL 5000 UNITS SUB-Q ×2 (09:24→20:31)
[2024-12-11] MEDS: DIVALPROEX SODIUM DR 250 MG TABEC 500 MG PO (09:24)
[2024-12-11] MEDS: GABAPENTIN 100 MG CAPSULE PO ×3 (09:24→19:05)
[2024-12-11] MEDS: VENLAFAXINE HCL XR 75 MG CAP.ER.24H 150 MG PO (09:24)
[2024-12-11] MEDS: ASPIRIN 81 MG CHEWABLE TABLET PO (09:24)
[2024-12-11] MEDS: SENNA/DOCUSATE SODIUM TABLET 1 TAB PO (09:24)
[2024-12-11] MEDS: busPIRone HCL 10 MG TABLET PO ×3 (09:24→19:05)
[2024-12-11] MEDS: FLUoxetine HCL 20 MG CAPSULE 60 MG PO (09:24)
[2024-12-11 09:25] VITALS: PULSE 68
[2024-12-11] MEDS: lisinopriL 5 MG TABLET PO (09:25)
[2024-12-11] MEDS: METOPROLOL TARTRATE 50 MG TAB PO ×2 (09:25→20:31)
[2024-12-11] MEDS: ASCORBIC ACID 500 MG TABLET PO (09:25)
[2024-12-11] MEDS: levETIRAcetam 500 MG TABLET 1000 MG PO ×2 (09:25→20:31)
[2024-12-11] MEDS: CHOLECALCIFEROL 1,000 UNITS TABLET 2000 UNITS PO (09:25)
[2024-12-11] MEDS: CYANOCOBALAMIN 500 MCG TABLET PO (09:25)
[2024-12-11] MEDS: FAMOTIDINE 20 MG TABLET PO (09:26)
[2024-12-11] MEDS: COLLAGENASE OINT 30 GM TUBE 1 APPLIC TOPICAL (09:30)
[2024-12-11] MEDS: QUEtiapine FUMARATE 100 MG TABLET PO ×3 (11:38→20:31)
[2024-12-11] MEDS: SODIUM ZIRCONIUM CYCLOSILICATE 10 GM POWD.PACK PO (11:38)
[2024-12-11] MEDS: QUEtiapine FUMARATE 25 MG TABLET PO ×3 (11:39→20:31)
[2024-12-11 14:00] VITALS: BP 127/95; PULSE 74; RESP 18; TEMP 36.8; O2SAT 98
[2024-12-11] MEDS: traZODone HCL 50 MG TABLET PO (20:31)
[2024-12-11] MEDS: TAMSULOSIN HCL 0.4 MG CAPSULE PO (20:31)
[2024-12-11] MEDS: ATORVASTATIN 40 MG TABLET PO (20:31)
[2024-12-11 21:12] VITALS: BP 132/92; PULSE 74; RESP 16; TEMP 36.4; O2SAT 99
[2024-12-12 06:00] VITALS: BP 147/83; PULSE 69; RESP 17; TEMP 36.2; O2SAT 98
--- NOTE | 2024-12-12 08:12 | P.DS_ITS ---
DS: Admitting Diagnosis Discharge Date 12/12/24 Admitting Diagnosis PAD, LLE Wound, Seizure disorder, MARIANGEL, Hyperlipidemia DS: Discharge Diagnosis Discharge Diagnosis (1) Peripheral artery disease: Code(s): I73.9 - Peripheral vascular disease, unspecified Status: Acute Assessment and Plan: * CTA Left LE: FINDINGS: There is no significant stenosis of the included portion of left superficial femoral artery. There is severe stenosis of the above-knee popliteal artery. There is no significant stenosis of the tibioperoneal trunk, anterior tibial artery, posterior tibial artery, or the peroneal artery. Again seen is an 8 mm radiopaque foreign body in the musculature of the foot. IMPRESSION: 1. 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 * Dr. Haresh Laura Vascular at [facility] on 11/29/24. Per the note patient will need a LAIF and an RAIF but she is unsure when he is supposed to be seen next. * Called and presented patient to their transfer center, waiting to hear back. * Patient is receiving Aspirin 81 mg PO daily and Atorvastatin 40 mg PO at bedtime. * Called Dr. Haresh Laura office today 12/03/24, awaiting a call back from Dr. Laura to discuss patient and plan. Patient will need scheduled for further testing per Dr. Laura office. 12/05/24: * Pt currently awaiting bed assignment and transfer to [facility] for vascular evaluation. 12/07/24: * Continuing to wait for transfer at this time. 12/08/24 D/w with Vascular MD at [facility] today no need for any urgent transfer can treat wound in hospital and DC to vascular follow up OPD Vascular MDwith discuss with DR Laura to bring vascular surgery date forward No need to transfer pt at this stage as this a chronic PAD problem 12/09/24: Treat for leg wound in hospital and DC soon in 1-2 days time pt wants to DC back home does not want to go back to the facility 12/10 levaquin po-working with pharm ID fir duration of therapy 12/11/24: * Finish Levaquin 750 mg Q48 hrs. Doses on 12/12/24 at 1600 and 12/14/24 at 1600 * Follow up with Dr. Laura as an outpt. * Discharge to [facility] where he resides in [place]. (2) Wound of left lower extremity: Code(s): S81.802A - Unspecified open wound, left lower leg, initial encounter Status: Acute Assessment and Plan: * Zosyn 3.375 gm IVPB q 6. * Vancomycin 1,500 mg IVPB daily stopped on 12/04/24. * Renally dose. * Wound care consult. * LLE leg wound culture grew pseudomonas aeruginosa and staphylococcus aureus. * Santyl to wound. * Redness improving and decreasing inside of area marked. * Monitor pulses. * Pain control. * improving. 12/05/24: * Continue IV abx * Continue wound care * Overall improving condition. 12/07/24: * Continue current care and treatment. 12/08 continue current care 12/09: continue current care with IV zosyn day 8 continue wound care DC home with wound care soon in 1-2 days time rpt BC are negative wound grew pseudomonas can transition to levaquin on dc with wound care see above 12/11/24: * Finish Levaquin 750 mg Q48 hrs. Doses on 12/12/24 at 1600 and 12/14/24 at 1600 * Follow up with Dr. Laura as an outpt. * Discharge to [facility] where he resides in [place] (3) Seizure disorder: Code(s): G40.909 - Epilepsy, unspecified, not intractable, without status epilepticus Status: Chronic Assessment and Plan: * Levetiracetam 1,000 mg PO q 12. * Depakote 500 mg PO daily. 12/05/24: * Continue home meds 12/07/24: * No seizure activity since being admitted. 12/08 pt is stable 12/09 no seizures since admission 12/11/24: * Stable without any additional seizure activity. (4) Hyperkalemia: Code(s): E87.5 - Hyperkalemia Status: Inactive Assessment and Plan: * Potassium 4.1, improved. 12/05/24: * Resolved 12/09: stable (5) MARIANGEL (acute kidney injury): Code(s): N17.9 - Acute kidney failure, unspecified Status: Acute Assessment and Plan: * Creatinine 1.86 on admission, last check, 1.78. * Received a liter of normal saline in the ER. * Start NS @ 75 ml/hr * Encourage oral intake. * Monitor labs. 12/05/24: * Stable renal function at 1.77 Cr * Continue to monitor as pt is on Vancomycin. 12/07/24: * Renal function remains stable at this time. 12/08; bmp stable at 1.8 12/09 bmp is 1.96 12/12/24; * Pt's renal function is impaired, but at his baseline. * Stable for discharge. Plan Discharge back to [facility] and continue Levaquin for two additional doses. Dr. Laura to see as outpt and to arrange Vascular surgery. DS: Summary Hospital Course Reason for hospitalization: PAD, Wound to lower extremity Hospital Course: This patient is a 49 year old male that currently resides at [facility]. Patient is a poor historian. Spoke with nurse at [facility] [place], operated by [facility]. Patient is established and managed by Dr. Haresh Laura Vascular at [facility], and the note of 11/29/24 states the patient will need a LAIF and an RAIF, but she is unsure when he is supposed to be seen next. Pt was initially supposed to be transferred for further vascular evaluation, however, he has waited for more than a week for transfer and in the meantime has been treated for infection that was culture driven for growth of Pseudomonas and Staph that has been treated with Levaquin 750 mg and only two doses remain. These are spaced out every 48 hours as pt has had MARIANGEL. His next dose is due today, 12/12/24 at 1600 and his final dose will be on 12/14/24 at 1600. We have verified with Dr. Laura that this is chronic and he does not need transferred at this time. Instead he is stable for return to [facility] where he gets around with W/C. Dressing changes to continue to LLE of Santyl ointment and dry dressing. He is to have follow up with Dr. Laura. His hospital course was complicated by MARIANGEL and he received gently hydration. He should have his renal function checked in the next week. He is stable for discharge at this time. Status at Discharge Cognitive/behavioral status at discharge: At baseline Functional status at discharge: wheelchair bound Overall status at discharge: patient is progressing back to baseline Time Spent with Patient Time attestation: Total time spent providing and/or coordinating discharge services: Time spent: Greater than 30 minutes Specific discharge activities: Discharge, follow up, medications Exam Const: General: comfortable, no acute distress and uncomfortable Eyes: Sclera: sclerae normal Pupils: Equal, round and reactive pupils present Resp: Effort & Inspection: normal respiratory effort Auscultation: clear to auscultation bilaterally Cardio: Rate: regular rate Rhythm: regular rhythm GI: Auscultation: normal bowel sounds Skin: Other: 1+ palpable dorsalis pedis and left popl iteal. Bilateral feet warm to touch. Several stage 1-3 ulcerations to the LLE with surrounding erythema, warmth and tenderness. Redness improving and decreasing inside of area marked. Malodorous creamy green drainage. Neuro: Cranial nerves: Yes Equal, round and reactive pupils present Speech: normal speech Extrem: General: no pedal edema Other: 1+ palpable dorsalis pedis and left popl iteal. Bilateral feet warm to touch. Several stage 1-3 ulcerations to the LLE with surrounding erythema, warmth and tenderness. Redness improving and decreasing inside of area marked. wound is improving Psych: Mental Status: mental status grossly normal Affect: normal affect Other: Teary at times when he talks about family, reports missing his family. A& Ox2. Memory impaired. DS: Data Data Completed and Pending Completed studies during hospitalization: ITS Impressions Tibia/Fibula X-Ray 11/30/24 16:48 IMPRESSION: 1. No evidence of osteomyelitis. Lower Extremity CTA 11/30/24 23:06 IMPRESSION: 1. 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 Knee X-Ray 12/05/24 21:35 IMPRESSION: Degenerative disease, without acute fracture or dislocation. Discharge Plan Discharge Attending physician on discharge: Karla Bernardo Discharging Clinician: Karla Bernardo Anticipated Discharge Date/Time: 12/12/24 08:30 Patient Disposition: SNF Activity: as tolerated Diet: heart healthy Discharge Instructions: Take medications as ordered. Follow up with Dr. Laura at [facility] for Vascular services. Patient Language: Ethiopian Stand Alone Forms: Fpc Discharge Follow-up/Referrals: Valentín,Haresh Woodson MD [Non-Staff] - Call for Appointment Vikash,Agustin Hodge MD [Primary Care Provider] - Call for Appointment Discharge Medications: New Santyl 250 unit/gram Ointment 1 applic topical QAM Qty: 60 0RF Rx Instructions: Apply to the open wounds to left leg levofloxacin 750 mg tablet 750 mg PO Q48H Qty: 2 0RF Continued alprazolam 0.5 mg Tablet 0.25 mg PO BID PRN (Reason: Anxiety) albuterol sulfate 90 mcg/actuation Hfa Aerosol Inhaler 1 puff INHALATION QID PRN (Reason: Dyspnea) naproxen [Naprosyn] 500 mg tablet 500 mg PO BID Qty: 20 0RF lisinopril 5 mg tablet 5 mg PO DAILY trazodone 50 mg tablet 50 mg PO HS aspirin 81 mg tablet,chewable 1 tablet PO DAILY venlafaxine 150 mg capsule,extended release 24hr 150 mg PO DAILY buspirone 10 mg tablet 10 mg PO TID levetiracetam [Keppra] 1,000 mg tablet 1,000 mg PO BID cholecalciferol (vitamin D3) 50 mcg (2,000 unit) capsule 50 mcg PO DAILY famotidine 20 mg tablet 20 mg PO DAILY atorvastatin [Lipitor] 40 mg tablet 40 mg PO HS quetiapine 100 mg tablet 125 mg PO TID cyanocobalamin (vitamin B-12) [B-12 DOTS] 500 mcg tablet 500 mcg PO DAILY fluoxetine 20 mg capsule 60 mg PO DAILY Rx Instructions: administer in the morning and at noon/midday ascorbic acid (vitamin C) [Vitamin C] 500 mg tablet 500 mg PO DAILY tamsulosin [Flomax] 0.4 mg capsule 0.4 mg PO HS divalproex [Depakote] 500 mg tablet,delayed release (DR/EC) 500 mg PO DAILY sennosides-docusate sodium [2-in-1 Laxative] 8.6-50 mg tablet 1 tab-cap PO DAILY metoprolol tartrate [Lopressor] 50 mg tablet 50 mg PO BID gabapentin 100 mg capsule 100 mg PO TID lorazepam 0.5 mg tablet 0.5 mg sublingual DAILY PRN (Reason: anxiety) tramadol 50 mg tablet 50 mg PO BID PRN (Reason: pain) Qty: 30 0RF Other Ambulatory Orders: Complete Blood Count with Diff (Routine) Timeframe: 3 Days Location: Determined by Patient Ordered By: Karla Bernardo Comprehensive Metabolic Panel (Routine) Timeframe: 3 Days Location: Determined by Patient Ordered By: Karla Bernardo Date of admission: 12/02/24 16:27 Primary Care Provider: Vikash,Agustin Hodge Admitting Provider: Minoo Mcguire V. Attending physician on admission: Karla Bernardo Condition: Stable Quality VTE Prophylaxis VTE prophylaxis: pharmacologic ordered Hospitalist MIPS Heart Failure (Exclusion) Patient has history of Heart Transplant or Left Ventricular Assistive Device?: No IF YES, STOP HERE Heart Failure (Qualifier) Patient has current or prior documentation of LVEF less than or equal to 40%, or mod/servere depressed LVSF?: No IF NO, STOP HERE
[2024-12-12] MEDS: GABAPENTIN 100 MG CAPSULE PO ×2 (08:16→12:05)
[2024-12-12] MEDS: levETIRAcetam 500 MG TABLET 1000 MG PO (08:16)
[2024-12-12] MEDS: lisinopriL 5 MG TABLET PO (08:16)
[2024-12-12] MEDS: VENLAFAXINE HCL XR 75 MG CAP.ER.24H 150 MG PO (08:16)
[2024-12-12] MEDS: SENNA/DOCUSATE SODIUM TABLET 1 TAB PO (08:16)
[2024-12-12] MEDS: FAMOTIDINE 20 MG TABLET PO (08:16)
[2024-12-12] MEDS: FLUoxetine HCL 20 MG CAPSULE 60 MG PO (08:16)
[2024-12-12] MEDS: HEPARIN SODIUM 5,000 UNITS/ML VIAL 5000 UNITS SUB-Q (08:16)
[2024-12-12] MEDS: busPIRone HCL 10 MG TABLET PO ×2 (08:16→12:05)
[2024-12-12] MEDS: ASCORBIC ACID 500 MG TABLET PO (08:16)
[2024-12-12] MEDS: ASPIRIN 81 MG CHEWABLE TABLET PO (08:16)
[2024-12-12] MEDS: CYANOCOBALAMIN 500 MCG TABLET PO (08:16)
[2024-12-12] MEDS: METOPROLOL TARTRATE 50 MG TAB PO (08:16)
[2024-12-12] MEDS: DIVALPROEX SODIUM DR 250 MG TABEC 500 MG PO (08:16)
[2024-12-12] MEDS: CHOLECALCIFEROL 1,000 UNITS TABLET 2000 UNITS PO (08:17)
[2024-12-12] MEDS: QUEtiapine FUMARATE 25 MG TABLET PO ×2 (08:19→12:05)
[2024-12-12] MEDS: QUEtiapine FUMARATE 100 MG TABLET PO ×2 (08:21→12:05)
[2024-12-12] MEDS: SODIUM ZIRCONIUM CYCLOSILICATE 10 GM POWD.PACK PO (10:52)
[2024-12-12] MEDS: COLLAGENASE OINT 30 GM TUBE 1 APPLIC TOPICAL (10:53)
== END 2024-12-12 12:25 | DRG 603 ==
LOC: ANHED 12-01 01:13 → ANH3MEDSUR 12-01 03:04
PROVIDERS: Family Medicine; Nurse Practitioner Family; Physician Assistant; Admitting Provider Internal Medicine; Emergency Provider Physician Assistant; PCP Internal Medicine Geriatric Medicine; Visit Provider Nurse Practitioner Adult Health
DX: L03.116 Cellulitis of left lower limb (principal); N17.9 Acute kidney failure, unspecified; I73.9 Peripheral vascular disease, unspecified; B96.5 Pseudomonas (aeruginosa) (mallei) (pseudomallei) as the cause of diseases classified elsewhere; B95.61 Methicillin susceptible Staphylococcus aureus infection as the cause of diseases classified elsewhere; T14.8XXD Other injury of unspecified body region, subsequent encounter; E78.5 Hyperlipidemia, unspecified; E87.5 Hyperkalemia; F31.9 Bipolar disorder, unspecified; F17.210 Nicotine dependence, cigarettes, uncomplicated; G40.909 Epilepsy, unspecified, not intractable, without status epilepticus; I10 Essential (primary) hypertension; N40.0 Benign prostatic hyperplasia without lower urinary tract symptoms; Z86.73 Personal history of transient ischemic attack (TIA), and cerebral infarction without residual deficits; Z99.3 Dependence on wheelchair; Z66 Do not resuscitate
CPT/HCPCS: 36415; 73560; 73590; 73706; 80048; 80053; 80202; 83605; 83735; 84100; 85025; 85027; 85652; 86140; 87040; 87070; 87075; 87181; 87186; 87205; 96361; 96365; 96366; 96368; 99285; A9270; G0378; J0360; J1644; J2270; J2543; J3370; J7030; J7040; Q9967